=== PATIENT | male | born 1985 | race Caucasian/White ===

== ENCOUNTER 2018-06-03 20:00 | Emergency (ER) | payer SELFPAY ==
--- NOTE | 2018-06-03 21:07 | EDPHYS ---
Physician Documentation [facility] Name: Kali Lopez Age: 32 yrs Sex: Male : 1985 Arrival Date: 06/03/2018 Time: 20:03 Bed 4 Private MD: ED Physician Cecil Mendoza HPI: 06/03 20:48 This 32 yrs old Male presents to ER via Ambulatory with complaints of cp Allergic Reaction, Rash. 20:48 The patient presents with rash, of the back. Onset: The symptoms/episode began/occurred cp at an unknown time. Associated signs and symptoms: Pertinent positives: rash, Pertinent negatives: abdominal pain, Altered mental status dysphagia, fever, Light headed shortness of breath, vomiting. Possible causes: The patient has no known obvious cause for the symptoms. At home the patient or guardian has treated the symptoms with Benadryl. Severity of symptoms: in the emergency department the symptoms are unchanged despite home interventions. Historical: - Allergies: 20:08 No Known Allergies; la1 - PMHx: 20:08 None; la1 - Immunization history:: Adult Immunizations up to date. - Social history:: Smoking status: Patient/guardian denies using tobacco. - Ebola Screening: : No symptoms or risks identified at this time. ROS: 20:55 Constitutional: Negative for body aches, chills, fever, poor PO intake. cp 20:55 Eyes: Negative for injury, pain, redness, and discharge. cp 20:55 ENT: Negative for ear pain, sinus congestion, sore throat. 20:55 Cardiovascular: Negative for chest pain, edema, palpitations. 20:55 Respiratory: Negative for cough, shortness of breath, wheezing. 20:55 Abdomen/GI: Negative for abdominal pain, nausea, vomiting, and diarrhea. 20:55 Skin: Positive for rash, of the back. 20:55 Neuro: Negative for altered mental status, headache, weakness. 20:55 All other systems are negative. Exam: 21:00 Constitutional: The patient appears in no acute distress, alert, awake, cp non-diaphoretic, non-toxic, well developed, well nourished. 21:00 Head/Face: Normocephalic, atraumatic. cp 21:00 Eyes: Periorbital structures: appear normal, Conjunctiva: normal, no exudate, no injection, Sclera: no appreciated abnormality, Lids and lashes: appear normal, bilaterally. 21:00 ENT: External ear(s): are unremarkable, Ear canal(s): are normal, clear, TM's: dullness, bilaterally, Nose: is normal, Mouth: Lips: moist, Oral mucosa: pink and intact, moist, Posterior pharynx: is normal, airway is patent, no erythema, no exudate. 21:00 Neck: ROM/movement: is normal, is supple, without pain, no range of motions limitations, no meningismus, no nuchal rigidity. 21:00 Chest/axilla: Inspection: normal, Palpation: is normal, no crepitus, no tenderness. 21:00 Cardiovascular: Rate: normal, Rhythm: regular. 21:00 Respiratory: the patient does not display signs of respiratory distress, Respirations: normal, no use of accessory muscles, no retractions, no splinting, no tachypnea, labored breathing, is not present, Breath sounds: are clear throughout, no decreased breath sounds, no stridor, no wheezing. 21:00 Abdomen/GI: Inspection: abdomen appears normal, Palpation: abdomen is soft and non-tender, in all quadrants. 21:00 Skin: consistent with hives, on the back. 21:00 Neuro: Orientation: to person, place \T\ time. Mentation: is normal, Cerebellar function: is grossly normal, Motor: moves all fours, strength is normal, Sensation: is normal. Vital Signs: 20:08 BP 130 / 100; Pulse 96; Resp 18; Temp 97.1; Pulse Ox 98% on R/A; la1 20:10 Weight 90.72 kg; la1 21:07 BP 117 / 78; Pulse 68; Resp 18; Temp 97.6; Pulse Ox 98% on R/A; ak1 MDM: 20:31 Patient medically screened. cp 21:00 Differential diagnosis: anaphylaxis, angioedema, urticaria, hives. cp 21:05 Data reviewed: vital signs, nurses notes. cp 21:05 Counseling: I had a detailed discussion with the patient and/or guardian regarding: the cp historical points, exam findings, and any diagnostic results supporting the discharge/admit diagnosis, the need for outpatient follow up, a family practitioner, to return to the emergency department if symptoms worsen or persist or if there are any questions or concerns that arise at home. Response to treatment: the patient's symptoms have mildly improved after treatment, and as a result, I will discharge patient. Administered Medications: 21:05 Drug: SOLU-Medrol 80 mg Route: IM; Site: right gluteus; ak1 21:19 Follow up: Response: No adverse reaction ak1 Disposition: 06/03/18 21:06 Discharged to Home. Impression: Hives. - Condition is Stable. - Discharge Instructions: Allergies, Adult, Hives. - Prescriptions for Pepcid 20 mg Oral Tablet - take 1 tablet by ORAL route every 12 hours for 10 days; 20 tablet. Zyrtec 10 mg Oral Tablet - take 1 tablet by ORAL route once daily As needed; 20 tablet. Prednisone 20 mg Oral Tablet - take 2 tablet by ORAL route once daily for 5 days; 10 tablet. - Medication Reconciliation Form, Thank You Letter, Antibiotic Education, Prescription Opioid Use form. - Follow up: Private Physician; When: 2 - 3 days; Reason: Recheck today's complaints. - Problem is an ongoing problem. - Symptoms have improved. Addendum: 06/05/2018 02:51 Co-signature as Attending Physician, Cecil Mendoza MD. g s Signatures: Ez Finnegan RN RN la1 Aurelia Hubbard RN RN ak1 Eugene Goldstein PA PA cp Cecil Mendoza MD MD gs Corrections: (The following items were deleted from the chart) 06/03 21:07 21:06 06/03/2018 21:06 Discharged to Home. Impression: Allergic urticaria. Condition is cp Stable. Forms are Medication Reconciliation Form, Thank You Letter, Antibiotic Education, Prescription Opioid Use. Follow up: Private Physician; When: 2 - 3 days; Reason: Recheck today's complaints. Problem is an ongoing problem. Symptoms have improved. cp 21:19 21:07 06/03/2018 21:06 Discharged to Home. Impression: Hives. Condition is Stable. ak1 Discharge Instructions: Allergies, Adult, Hives. Prescriptions for Pepcid 20 mg Oral Tablet - take 1 tablet by ORAL route every 12 hours for 10 days; 20 tablet, Zyrtec 10 mg Oral Tablet - take 1 tablet by ORAL route once daily As needed; 20 tablet, Prednisone 20 mg Oral Tablet - take 2 tablet by ORAL route once daily for 5 days; 10 tablet. and Forms are Medication Reconciliation Form, Thank You Letter, Antibiotic Education, Prescription Opioid Use. Follow up: Private Physician; When: 2 - 3 days; Reason: Recheck today's complaints. Problem is an ongoing problem. Symptoms have improved. cp
--- NOTE | 2018-06-03 21:07 | ER ---
Nurse's Notes [facility] Name: Kali Lopez Age: 32 yrs Sex: Male : 1985 Arrival Date: 06/03/2018 Time: 20:03 Bed 4 Private MD: Diagnosis: Hives Presentation: 06/03 20:07 Presenting complaint: Patient states: I have an itchy rash on my back for the last la1 month. Transition of care: patient was not received from another setting of care. Onset: The symptoms/episode began/occurred last month. Anaphylaxis evaluation, no signs or symptoms of anaphylaxis were noted. Onset of symptoms was June 03, 2018. Risk Assessment: Do you want to hurt yourself or someone else? Patient reports no desire to harm self or others. Initial Sepsis Screen: Does the patient meet any 2 criteria? No. Patient's initial sepsis screen is negative. Does the patient have a suspected source of infection? No. Patient's initial sepsis screen is negative. Care prior to arrival: None. 20:07 Method Of Arrival: Ambulatory la1 20:07 Acuity: SALO 5 la1 Triage Assessment: 20:36 General: Appears in no apparent distress. Behavior is cooperative. ak1 Historical: - Allergies: 20:08 No Known Allergies; la1 - PMHx: 20:08 None; la1 - Immunization history:: Adult Immunizations up to date. - Social history:: Smoking status: Patient/guardian denies using tobacco. - Ebola Screening: : No symptoms or risks identified at this time. Screenin:36 Abuse screen: Denies threats or abuse. Denies injuries from another. Nutritional ak1 screening: No deficits noted. Tuberculosis screening: No symptoms or risk factors identified. Fall Risk None identified. Assessment: 20:36 Respiratory: Airway is patent Respiratory effort is even, unlabored, Breath sounds are ak1 clear. 20:39 General: Appears in no apparent distress. Pain: Denies pain. Neuro: No deficits noted. ak1 Cardiovascular: No deficits noted. GI: No signs and/or symptoms were reported involving the gastrointestinal system. : No signs and/or symptoms were reported regarding the genitourinary system. EENT: No signs and/or symptoms were reported regarding the EENT system. Derm: Rash noted that is redness and itching noted to left shoulder blade, right upper arm, and lower back. pt stated he "gets a rash once a year, comes in to the ER gets a steroid shot and the rash goes away for the year.". Musculoskeletal: No signs and/or symptoms reported regarding the musculoskeletal system. Vital Signs: 20:08 BP 130 / 100; Pulse 96; Resp 18; Temp 97.1; Pulse Ox 98% on R/A; la1 20:10 Weight 90.72 kg; la1 21:07 BP 117 / 78; Pulse 68; Resp 18; Temp 97.6; Pulse Ox 98% on R/A; ak1 ED Course: 20:03 Patient arrived in ED. am2 20:08 Triage completed. la1 20:09 Arm band placed on left wrist. la1 20:31 Eugene Goldstein PA is PHCP. cp 20:31 Cecil Mendoza MD is Attending Physician. cp 20:36 Aurelia Hubbard, RN is Primary Nurse. ak1 20:37 Patient has correct armband on for positive identification. Bed in low position. Call ak1 light in reach. Side rails up X 1. Pulse ox on. NIBP on. 21:08 No provider procedures requiring assistance completed. Patient did not have IV access ak1 during this emergency room visit. Administered Medications: 21:05 Drug: SOLU-Medrol 80 mg Route: IM; Site: right gluteus; ak1 21:19 Follow up: Response: No adverse reaction ak1 Outcome: 21:06 Discharge ordered by . cp 21:08 Condition: good ak1 21:19 Discharged to home ambulatory. ak1 21:19 Discharge instructions given to patient, Instructed on discharge instructions, follow up and referral plans. medication usage, Demonstrated understanding of instructions, follow-up care, medications, Prescriptions given X 3. 21:19 Patient left the ED. ak1 Signatures: Ez Finnegan RN RN la1 Aurelia Hubbard, RN RN ak1 Eugene Goldstein PA PA cp Moreno, Amanda am
[2018-06-03] MEDS ORDERED: METHYLPREDNISOLONE 40 MG INJ ONE (21:11)
== END 2018-06-03 21:19 | disposition home or self-care (01) ==
LOC: ER 20:00
DX: L50.9 Urticaria, unspecified (principal)
CPT/HCPCS: 96372; 99283; J2920

== ENCOUNTER 2018-12-14 18:00 | Emergency (ER) | payer SELFPAY ==
--- NOTE | 2018-12-14 19:15 | ER ---
Nurse's Notes [facility] Name: Kali Lopez Age: 32 yrs Sex: Male : 1985 Arrival Date: 12/14/2018 Time: 18:01 Bed Waiting Private MD: Diagnosis: Presentation: 12/14 18:16 Presenting complaint: Patient states: I have been waking up with a headache for the la1 past week, but for the last 2 days it has not gone away. Transition of care: patient was not received from another setting of care. Onset of symptoms was December 14, 2018. Risk Assessment: Do you want to hurt yourself or someone else? Patient reports no desire to harm self or others. Initial Sepsis Screen: Does the patient meet any 2 criteria? No. Patient's initial sepsis screen is negative. Does the patient have a suspected source of infection? No. Patient's initial sepsis screen is negative. Care prior to arrival: None. 18:16 Method Of Arrival: Ambulatory la1 18:16 Acuity: SALO 3 la1 Historical: - Allergies: 18:17 No Known Allergies; la1 - Home Meds: 18:17 lisinopril 10 mg Oral tab 1 tab once daily [Active]; la1 - PMHx: 18:17 Hypertension; la1 - Immunization history:: Adult Immunizations up to date. - Social history:: Smoking status: Patient/guardian denies using tobacco. - Ebola Screening: : No symptoms or risks identified at this time. Vital Signs: 18:17 BP 119 / 83; Pulse 79; Resp 16; Temp 97.8; Pulse Ox 98% on R/A; Weight 86.18 kg; Height la1 5 ft. 7 in. (170.18 cm); 18:17 Body Mass Index 29.76 (86.18 kg, 170.18 cm) la1 ED Course: 18:01 Patient arrived in ED. as 18:16 Triage completed. la1 18:17 Arm band placed on left wrist. la1 18:55 Patient's name was called from ER lobby. No response. Unable to locate patient. Will la1 disposition as left without being seen by a provider. 19:05 Patient's name was called from ER lobby. No response. Unable to locate patient. Will la1 disposition as left without being seen by a provider. 19:11 Patient's name was called from ER lobby. No response. Unable to locate patient. Will la1 disposition as left without being seen by a provider. Administered Medications: No medications were administered Outcome: 19:14 Patient left the ED. la1 Signatures: Romelia Tang Lee, RN RN la1
== END 2018-12-14 19:14 | disposition left against medical advice (07) ==
LOC: ER 18:00
DX: Z53.21 Procedure and treatment not carried out due to patient leaving prior to being seen by health care provider (principal)
CPT/HCPCS: 99281

== ENCOUNTER 2019-07-22 21:17 | Emergency (ER) | payer SELFPAY ==
--- NOTE | 2019-07-22 21:54 | EDPHYS ---
Physician Documentation [facility] Name: Kali oLpez Age: 33 yrs Sex: Male : 1985 Arrival Date: 07/22/2019 Time: 21:20 Bed 16 Private MD: ED Physician Tim Mcgill HPI: 07/21 21:36 This 33 yrs old Male presents to ER via Ambulatory with complaints of lip pm1 swelling. 21:36 The patient's rash thought to be caused by an unknown cause. The rash is located on the pm1 lower lip. Onset: The symptoms/episode began/occurred today. Associated signs and symptoms: Pertinent negatives: burning sensation, difficulty breathing, fever, swelling of throat, swelling of tongue, vomiting, wheezing, SOB. Treatment given at home: None. Patient reports swelling to his lips once per year. Started as a child and usually requires getting a steroid shot to bring it down. Historical: - Allergies: 21:29 No Known Allergies; ca1 - Home Meds: 21:29 lisinopril 10 mg Oral tab 1 tab once daily [Active]; ca1 - PMHx: 21:29 Hypertension; ca1 - PSHx: 21:29 None; ca1 - Immunization history:: Adult Immunizations up to date, Flu vaccine is up to date. - Social history:: Smoking status: Patient reports the use of cigarette tobacco products, smokes one pack cigarettes per day. ROS: 21:36 Constitutional: Negative for fever, chills, and weight loss, Eyes: Negative for injury, pm1 pain, redness, and discharge. 21:36 Cardiovascular: Negative for chest pain, palpitations, and edema, Respiratory: Negative for shortness of breath, cough, wheezing, and pleuritic chest pain, Abdomen/GI: Negative for abdominal pain, nausea, vomiting, diarrhea, and constipation, Back: Negative for injury and pain, MS/Extremity: Negative for injury and deformity, Skin: Negative for injury, rash, and discoloration. 21:36 Neuro: Negative for headache, weakness, numbness, tingling, and seizure. 21:36 ENT: Positive for Lip swelling, Negative for ear pain, difficulty swallowing, difficulty handling secretions, hoarseness. Exam: 21:36 Constitutional: This is a well developed, well nourished patient who is awake, alert, pm1 and in no acute distress. Head/Face: Normocephalic, atraumatic. 21:36 Neck: Trachea midline, no thyromegaly or masses palpated, and no cervical lymphadenopathy. Supple, full range of motion without nuchal rigidity, or vertebral point tenderness. No Meningismus. Chest/axilla: Normal chest wall appearance and motion. Nontender with no deformity. No lesions are appreciated. Cardiovascular: Regular rate and rhythm with a normal S1 and S2. No gallops, murmurs, or rubs. No pulse deficits. Respiratory: Lungs have equal breath sounds bilaterally, clear to auscultation and percussion. No rales, rhonchi or wheezes noted. No increased work of breathing, no retractions or nasal flaring. Abdomen/GI: Soft, non-tender, with normal bowel sounds. No distension or tympany. No guarding or rebound. No evidence of tenderness throughout. Back: No spinal tenderness. No costovertebral tenderness. Full range of motion. Skin: Warm, dry with normal turgor. Normal color with no rashes, no lesions, and no evidence of cellulitis. MS/ Extremity: Pulses equal, no cyanosis. Neurovascular intact. Full, normal range of motion. 21:36 ENT: External ear(s): are unremarkable, Ear canal(s): are normal, TM's: are normal, Nose: is normal, Mouth: Lips: mild swelling to left lower lip, Posterior pharynx: is normal, airway is patent. 21:36 Neuro: Orientation: is normal, Motor: is normal, moves all fours, Sensation: is normal, no obvious gross deficits. Vital Signs: 21:26 BP 122 / 38; Pulse 70; Resp 16 S; Temp 97.5(TE); Pulse Ox 98% on R/A; Weight 87.54 kg ca1 (R); Height 5 ft. 7 in. (170.18 cm) (R); 21:31 BP 122 / 38; Pulse 70; Resp 18; Temp 98.8; Pulse Ox 98% ; Pain 0/10; jv1 22:00 BP 125 / 60; Pulse 71; Resp 18; Temp 98.2; Pulse Ox 98% ; Pain 0/10; jv1 21:26 Body Mass Index 30.23 (87.54 kg, 170.18 cm) ca1 MDM: 21:21 Patient medically screened. pm1 21:42 Data reviewed: vital signs. Data interpreted: Pulse oximetry: on room air is 98 %. pm1 Interpretation: normal. 21:50 Counseling: I had a detailed discussion with the patient and/or guardian regarding: the pm1 historical points, exam findings, and any diagnostic results supporting the discharge/admit diagnosis, the need for outpatient follow up, for definitive care, an allergy/video specialist, to return to the emergency department if symptoms worsen or persist or if there are any questions or concerns that arise at home. 21:53 ED course: Patient does not want to wait for effect of medications prior to discharge. pm1 He wants to go to home because he has work at 3. Administered Medications: 21:48 Drug: Pepcid 20 mg Route: PO; jv1 21:59 Follow up: Response: No adverse reaction jv1 21:48 Drug: Decadron 10 mg Route: IM; Site: left gluteus; jv1 21:59 Follow up: Response: No adverse reaction jv1 21:50 CANCELLED (Physician Discretion): Benadryl 25 mg PO once pm1 Disposition: 22:58 Co-signature as Attending Physician, Tim Mcgill MD. sita Disposition: 07/22/19 21:52 Discharged to Home. Impression: Localized swelling, mass and lump, head - lower lip. - Condition is Stable. - Discharge Instructions: Angioedema. - Prescriptions for Prednisone 20 mg Oral Tablet - take 3 tablet by ORAL route once daily for 5 days; 15 tablet. - Medication Reconciliation Form, Thank You Letter, Antibiotic Education, Prescription Opioid Use form. - Follow up: Emergency Department; When: As needed; Reason: Worsening of condition. Follow up: Private Physician; When: 2 - 3 days; Reason: Recheck today's complaints, Continuance of care, Re-evaluation by your physician. - Problem is new. - Symptoms have improved. Signatures: Tim Mcgill MD MD pkl Per Sharpe NP CITY DETECTIVE pm1 Lupe Caraballo RN RN jLeial Cerrato RN RN ca1 Corrections: (The following items were deleted from the chart) 21:50 21:28 Benadryl 25 mg PO once ordered. pm1 pm1 21:53 21:52 07/22/2019 21:52 Discharged to Home. Impression: Localized swelling, mass and pm1 lump, head - lower lip. Condition is Stable. Forms are Medication Reconciliation Form, Thank You Letter, Antibiotic Education, Prescription Opioid Use. pm1 22:01 21:53 07/22/2019 21:52 Discharged to Home. Impression: Localized swelling, mass and jv1 lump, head - lower lip. Condition is Stable. Forms are Medication Reconciliation Form, Thank You Letter, Antibiotic Education, Prescription Opioid Use. Follow up: Emergency Department; When: As needed; Reason: Worsening of condition. Follow up: Private Physician; When: 2 - 3 days; Reason: Recheck today's complaints, Continuance of care, Re-evaluation by your physician. Problem is new. Symptoms have improved. pm1
--- NOTE | 2019-07-22 21:54 | ER ---
Nurse's Notes [facility] Name: Kali Lopez Age: 33 yrs Sex: Male : 1985 Arrival Date: 07/22/2019 Time: 21:20 Bed 16 Private MD: Diagnosis: Localized swelling, mass and lump, head-lower lip Presentation: 07/21 21:26 Chief complaint: Patient states: Swelling on L lower lip. 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 Pt ca1 states, "I breakout in hives for no reason since I was a kid. I carry around Benadryl with me all the time. If doesn't work, I come to the ER to get a shot of steroids". Coronavirus screen: Patient denies fever greater than 100.4F, cough, shortness of breath, or difficulty breathing. Proceed with normal triage process. Ebola Screen: Patient negative for fever greater than or equal to 101.5 degrees Fahrenheit, and additional compatible Ebola Virus Disease symptoms Patient denies exposure to infectious person. Patient denies travel to an Ebola-affected area in the 21 days before illness onset. No symptoms or risks identified at this time. Initial Sepsis Screen: Does the patient meet any 2 criteria? No. Patient's initial sepsis screen is negative. Does the patient have a suspected source of infection? No. Patient's initial sepsis screen is negative. Risk Assessment: Do you want to hurt yourself or someone else? Patient reports no desire to harm self or others. Onset of symptoms was July 22, 2019. 21:26 Method Of Arrival: Ambulatory ca1 21:26 Acuity: SALO 4 ca1 Historical: - Allergies: 21:29 No Known Allergies; ca1 - Home Meds: 21:29 lisinopril 10 mg Oral tab 1 tab once daily [Active]; ca1 - PMHx: 21:29 Hypertension; ca1 - PSHx: 21:29 None; ca1 - Immunization history:: Adult Immunizations up to date, Flu vaccine is up to date. - Social history:: Smoking status: Patient reports the use of cigarette tobacco products, smokes one pack cigarettes per day. Screenin:34 Abuse screen: Denies threats or abuse. Nutritional screening: No deficits noted. jv1 Tuberculosis screening: No symptoms or risk factors identified. Fall Risk None identified. Assessment: 21:32 General: Appears in no apparent distress. well groomed, Behavior is calm, cooperative. jv1 Pain: Denies pain. Neuro: Level of Consciousness is awake, alert, obeys commands, Oriented to person, place, time, situation. Cardiovascular: Denies chest pain. Respiratory: Airway is patent Respiratory effort is even, unlabored, Respiratory pattern is regular, symmetrical, Breath sounds are clear bilaterally. GI: Abdomen is round non-distended, Bowel sounds present X 4 quads. : No signs and/or symptoms were reported regarding the genitourinary system. EENT: swelling in left lower lip, pt stated it is itchy. Derm: Skin is intact, is healthy with good turgor, Skin is pink, warm \\T\\ dry. swelling left lower lip. Musculoskeletal: No signs and/or symptoms reported regarding the musculoskeletal system. Vital Signs: 21:26 BP 122 / 38; Pulse 70; Resp 16 S; Temp 97.5(TE); Pulse Ox 98% on R/A; Weight 87.54 kg ca1 (R); Height 5 ft. 7 in. (170.18 cm) (R); 21:31 BP 122 / 38; Pulse 70; Resp 18; Temp 98.8; Pulse Ox 98% ; Pain 0/10; jv1 22:00 BP 125 / 60; Pulse 71; Resp 18; Temp 98.2; Pulse Ox 98% ; Pain 0/10; jv1 21:26 Body Mass Index 30.23 (87.54 kg, 170.18 cm) ca1 ED Course: 21:20 Patient arrived in ED. mr 21:21 Per Sharpe NP is PHCP. pm1 21:21 Tim Mcgill MD is Attending Physician. pm1 21:29 Triage completed. ca1 21:29 Arm band placed on right wrist. ca1 21:34 Patient has correct armband on for positive identification. Bed in low position. Call jv1 light in reach. Side rails up X 1. 21:58 No provider procedures requiring assistance completed. Patient did not have IV access jv1 during this emergency room visit. Administered Medications: 21:48 Drug: Pepcid 20 mg Route: PO; jv1 21:59 Follow up: Response: No adverse reaction jv1 21:48 Drug: Decadron 10 mg Route: IM; Site: left gluteus; jv1 21:59 Follow up: Response: No adverse reaction jv1 21:50 CANCELLED (Physician Discretion): Benadryl 25 mg PO once pm1 Outcome: 21:52 Discharge ordered by . pm1 21:58 Discharged to home ambulatory. jv1 21:58 Condition: good 21:58 Discharge instructions given to patient, Instructed on discharge instructions, follow up and referral plans. medication usage, Demonstrated understanding of instructions, follow-up care, medications, Prescriptions given X 1. 22:01 Patient left the ED. jv1 Signatures: Rupa Amaya Patrick, DOCKMASTER DOCKMASTER pm1 Lupe Caraballo, RN RN jv1 Leila Higgins RN RN ca1
[2019-07-22 22:08] VITALS: O2SAT 98
[2019-07-22 22:12] VITALS: BP 125/60; TEMP 98.2
== END 2019-07-22 22:01 | disposition home or self-care (01) ==
LOC: ER 21:17
DX: R22.0 Localized swelling, mass and lump, head (principal); I10 Essential (primary) hypertension; F17.210 Nicotine dependence, cigarettes, uncomplicated
CPT/HCPCS: 96372; 99283; J1100

== ENCOUNTER 2019-11-16 08:33 | Emergency (ER) | payer SELFPAY ==
--- NOTE | 2019-11-16 08:56 | EDPHYS ---
Physician Documentation [facility] Name: Kali Lopez Age: 33 yrs Sex: Male : 1985 Arrival Date: 11/16/2019 Time: 08:37 Bed 8 Private MD: None, None ED Physician Ace Rivera HPI: 11/15 09:01 This 33 yrs old Male presents to ER via Ambulatory with complaints of kdr Sneezing, Cough, Been around covid positive. 09:01 The patient or guardian reports airway noise, cough, that is intermittent, described as kdr mild, with productive sputum, Clear. Modifying factors: The symptoms are alleviated by nothing. the symptoms are aggravated by nothing. Onset: The symptoms/episode began/occurred gradually, Since Tuesday. Severity of symptoms: At their worst the symptoms were mild, in the emergency department the symptoms are unchanged. Associated signs and symptoms: The patient has no apparent associated signs or symptoms. Associated signs and symptoms: Pertinent negatives: diarrhea, fever, nausea, vomiting. Modifying factors: The symptoms are alleviated by nothing, the symptoms are aggravated by nothing. Severity of symptoms: At their worst the symptoms were very mild in the emergency department the symptoms are unchanged. Historical: - Allergies: 08:59 No Known Allergies; sv - PMHx: 08:59 Hypertension; High Cholesterol; sv - PSHx: 08:59 None; sv - Immunization history:: Adult Immunizations up to date. - Social history:: Smoking status: Patient denies any tobacco usage or history of. ROS: 09:06 Constitutional: Negative for fever, chills, and weight loss, Eyes: Negative for injury, kdr pain, redness, and discharge, ENT: Negative for injury, pain, and discharge, Neck: Negative for injury, pain, and swelling, Cardiovascular: Negative for chest pain, palpitations, and edema, Abdomen/GI: Negative for abdominal pain, nausea, vomiting, diarrhea, and constipation, Back: Negative for injury and pain, : Negative for injury, bleeding, discharge, and swelling, MS/Extremity: Negative for injury and deformity, Skin: Negative for injury, rash, and discoloration, Neuro: Negative for headache, weakness, numbness, tingling, and seizure activity. Psych: Negative for depression, anxiety, suicide ideation, homicidal ideation, and hallucinations, Allergy/Immunology: Negative for hives, rash, and allergies, Endocrine: Negative for neck swelling, polydipsia, polyuria, polyphagia, and marked weight changes, Hematologic/Lymphatic: Negative for swollen nodes, abnormal bleeding, and unusual bruising. 09:06 Respiratory: Positive for cough, with clear sputum, Negative for dyspnea on exertion, hemoptysis, orthopnea, pleurisy, shortness of breath, sputum production, wheezing. Exam: 09:06 Constitutional: This is a well developed, well nourished patient who is awake, alert, kdr and in no acute distress. Head/Face: Normocephalic, atraumatic. Eyes: Pupils equal round and reactive to light, extra-ocular motions intact. Lids and lashes normal. Conjunctiva and sclera are non-icteric and not injected. Cornea within normal limits. Periorbital areas with no swelling, redness, or edema. Neck: Trachea midline, no thyromegaly or masses palpated, and no cervical lymphadenopathy. Supple, full range of motion without nuchal rigidity, or vertebral point tenderness. No Meningismus. Chest/axilla: Normal chest wall appearance and motion. Nontender with no deformity. No lesions are appreciated. Cardiovascular: Regular rate and rhythm with a normal S1 and S2. No gallops, murmurs, or rubs. Normal PMI, no JVD. No pulse deficits. Respiratory: Lungs have equal breath sounds bilaterally, clear to auscultation and percussion. No rales, rhonchi or wheezes noted. No increased work of breathing, no retractions or nasal flaring. Abdomen/GI: Soft, non-tender, with normal bowel sounds. No distension or tympany. No guarding or rebound. No evidence of tenderness throughout. Back: No spinal tenderness. No costovertebral tenderness. Full range of motion. Skin: Warm, dry with normal turgor. Normal color with no rashes, no lesions, and no evidence of cellulitis. MS/ Extremity: Pulses equal, no cyanosis. Neurovascular intact. Full, normal range of motion. Neuro: Awake and alert, GCS 15, oriented to person, place, time, and situation. Cranial nerves II-XII grossly intact. Motor strength 5/5 in all extremities. Sensory grossly intact. Cerebellar exam normal. Normal gait. Psych: Awake, alert, with orientation to person, place and time. Behavior, mood, and affect are within normal limits. Vital Signs: 08:59 BP 111 / 76; Pulse 63; Resp 16; Pulse Ox 99% ; Weight 86.18 kg; Height 5 ft. 7 in. sv (170.18 cm); 08:59 Body Mass Index 29.76 (86.18 kg, 170.18 cm) sv MDM: 08:55 Patient medically screened. kdr 09:06 Data reviewed: vital signs, nurses notes. Counseling: I had a detailed discussion with kdr the patient and/or guardian regarding: the historical points, exam findings, and any diagnostic results supporting the discharge/admit diagnosis, the need for outpatient follow up. 11/15 08:55 Order name: COVID-19 kdr Administered Medications: No medications were administered Disposition: 11/16/19 08:55 Discharged to Home. Impression: Acute upper respiratory infection, unspecified. - Condition is Stable. - Discharge Instructions: Upper Respiratory Infection, Adult, Viral Respiratory Infection, [id number], COVID-19. - Medication Reconciliation Form, Thank You Letter form. - Follow up: Private Physician; When: 2 - 3 days; Reason: If symptoms return, Further diagnostic work-up, Recheck today's complaints, Continuance of care, Re-evaluation by your physician. - Problem is new. - Symptoms are unchanged. Signatures: Dispatcher [employer] Connie Remy RN RN Ace Rivera MD MD [facility] Corrections: (The following items were deleted from the chart) 09:12 08:55 11/16/2019 08:55 Discharged to Home. Impression: Acute upper respiratory sv infection, unspecified. Condition is Stable. Forms are Medication Reconciliation Form, Thank You Letter, Antibiotic Education, Prescription Opioid Use. Follow up: Private Physician; When: 2 - 3 days; Reason: If symptoms return, Further diagnostic work-up, Recheck today's complaints, Continuance of care, Re-evaluation by your physician. Problem is new. Symptoms are unchanged. kdr
--- NOTE | 2019-11-16 09:13 | ER ---
Nurse's Notes [facility] Name: Kali Lopez Age: 33 yrs Sex: Male : 1985 Arrival Date: 11/16/2019 Time: 08:37 Bed 8 Private MD: None, None Diagnosis: Acute upper respiratory infection, unspecified Presentation: 11/15 08:57 Chief complaint: Patient states: runny nose, dry cough, +exposure from immediate sv family. "I came to get tested.". Coronavirus screen: Patient reports a cough. Patient denies shortness of breath or difficulty breathing. Patient denies measured and/or subjective temperature greater than 100.4F prior to today's visit. Patient denies travel on a cruise ship or to a country the [facility] currently lists as an affected area. Patient reports contact with known and/or suspected case of COVID-19. Patient instructed to continue to wear a mask when interacting with others. Patient moved to private room, placed in contact and droplet isolation with eye protection until further assessment. Ebola Screen: No symptoms or risks identified at this time. Anaphylaxis evaluation, no signs or symptoms of anaphylaxis were noted. Risk Assessment: Do you want to hurt yourself or someone else? Patient reports no desire to harm self or others. 08:57 Method Of Arrival: Ambulatory 08:57 Acuity: SALO 4 sv 08:59 Initial Sepsis Screen: Does the patient meet any 2 criteria? No. Patient's initial sv sepsis screen is negative. Does the patient have a suspected source of infection? No. Patient's initial sepsis screen is negative. Onset of symptoms was November 16, 2019. Triage Assessment: 08:57 General: Appears in no apparent distress. comfortable, well developed, Behavior is sv calm, cooperative, appropriate for age. Pain: Denies pain. Neuro: Level of Consciousness is awake, alert, obeys commands, Oriented to person, place, time, situation, Moves all extremities. Full function Gait is steady, Speech is normal. Respiratory: Reports cough that is non-productive, dry, Airway is patent Respiratory effort is even, unlabored, Respiratory pattern is regular, symmetrical. Derm: Skin is pink, warm \\T\\ dry. Historical: - Allergies: 08:59 No Known Allergies; sv - PMHx: 08:59 Hypertension; High Cholesterol; sv - PSHx: 08:59 None; sv - Immunization history:: Adult Immunizations up to date. - Social history:: Smoking status: Patient denies any tobacco usage or history of. Screenin:59 Abuse screen: Denies threats or abuse. Denies injuries from another. Nutritional sv screening: No deficits noted. Tuberculosis screening: No symptoms or risk factors identified. Fall Risk None identified. Assessment: 09:12 Reassessment: COVID-19 swab sent to lab. sv 09:12 Reassessment: Patient appears in no apparent distress at this time. No changes from sv previously documented assessment. Patient and/or family updated on plan of care and expected duration. Pain level reassessed. Patient is alert, oriented x 3, equal unlabored respirations, skin warm/dry/pink. See triage assessment. Vital Signs: 08:59 BP 111 / 76; Pulse 63; Resp 16; Pulse Ox 99% ; Weight 86.18 kg; Height 5 ft. 7 in. sv (170.18 cm); 08:59 Body Mass Index 29.76 (86.18 kg, 170.18 cm) sv ED Course: 08:37 Patient arrived in ED. dp 08:37 Ace Rivera MD is Attending Physician. kdr 08:38 None, None is Private Physician. dp 08:54 Connie Wells RN is Primary Nurse. sv 08:58 Triage completed. sv 08:59 Awaiting ED provider evaluation. sv 08:59 Arm band placed on. sv 08:59 Patient has correct armband on for positive identification. Bed in low position. Call sv light in reach. Door closed. Head of bed elevated. 09:12 No provider procedures requiring assistance completed. Patient did not have IV access sv during this emergency room visit. 15:38 Health Dept notified/ PUI # [id number]/ Laurence in lab notified. eb Administered Medications: No medications were administered Outcome: 08:55 Discharge ordered by . kdr 09:12 Discharged to home ambulatory. sv 09:12 Condition: stable 09:12 Discharge instructions given to patient, Instructed on discharge instructions, follow up and referral plans. Demonstrated understanding of instructions, follow-up care. 09:12 Patient left the ED. sv Addendum: 11/19/2019 13:03 Addendum: COVID-19 Result: Negative result given to RN to notify pt. Contacted by: abril Baldwin RN. Notified pt of negative COVID 19 swab results. Pt advised that even with a negative test result they should remain in isolation until symptom free for 3 days without medication. Pt also advised to return to the ED for worsening symptoms. Signatures: Karla Lewis, ELLEN RN dm5 Connie Wells RN RN sv Ace Rivera MD MD kdr Botello, Elizabeth eb Pena, Darian dp Corrections: (The following items were deleted from the chart) 11/15 09:11 08:59 86.18 kg; Height 5 ft. 7 in.; BMI: 29.7; sv sv
[2019-11-16 10:03] VITALS: BP 111/76; O2SAT 99
== END 2019-11-16 09:12 | disposition home or self-care (01) ==
LOC: ER 08:33
DX: J06.9 Acute upper respiratory infection, unspecified (principal); Z20.828 Contact with and (suspected) exposure to other viral communicable diseases; I10 Essential (primary) hypertension
CPT/HCPCS: 99281; U0001

== ENCOUNTER 2020-09-22 19:31 | Emergency (ER) | payer SELFPAY ==
--- NOTE | 2020-09-22 20:21 | EDPHYS ---
Physician Documentation [facility] Name: Kali Lopez Age: 34 yrs Sex: Male : 1985 Arrival Date: 09/22/2020 Time: 19:33 Bed 5 Private MD: ED Physician Patrick Collado HPI: 09/22 20:20 This 34 yrs old Male presents to ER via Ambulatory with complaints of Knee cp Pain. 20:20 The patient presents with pain. cp 20:20 The complaints affect the medial aspect of right knee and right knee. Context: resulted cp from an unknown cause, the patient can fully bear weight, the patient is able to ambulate, with mild difficulty. Onset: The symptoms/episode began/occurred 3 week(s) ago. Associated signs and symptoms: Pertinent negatives calf tenderness, numbness, warmth. Historical: - Allergies: 19:45 No Known Allergies; ca1 - Home Meds: 19:45 None [Active]; ca1 - PMHx: 19:45 High Cholesterol; Hypertension; ca1 - PSHx: 19:45 None; ca1 - Immunization history:: Client reports receiving the 1st dose of the Covid vaccine, Flu vaccine is not up to date. - Social history:: Smoking status: Patient reports the use of cigarette tobacco products, smokes one-half pack cigarettes per day. ROS: 20:20 MS/extremity: Positive for pain, tenderness, of the right knee, Negative for injury or cp acute deformity, decreased range of motion, paresthesias. 20:20 Constitutional: Negative for body aches, chills, fever, poor PO intake. cp 20:20 Cardiovascular: Negative for chest pain. 20:20 Respiratory: Negative for cough, shortness of breath, wheezing. 20:20 Abdomen/GI: Negative for abdominal pain. 20:20 Skin: Negative for cellulitis, rash. 20:20 All other systems are negative. Exam: 20:20 Constitutional: The patient appears in no acute distress, alert, awake, non-toxic, well cp developed, well nourished. 20:20 Musculoskeletal/extremity: Extremities: grossly normal except: noted in the right knee: pain, tenderness, There is no evidence of decreased ROM, deformity, erythema, swelling, ROM: limited active range of motion due to pain, in the right knee, Pulses: noted to be 2+ in the right dorsalis pedis artery, Sensation intact. Vital Signs: 19:43 BP 129 / 90; Pulse 73; Resp 16 S; Temp 97.9(TE); Pulse Ox 99% on R/A; Weight 86.18 kg ca1 (R); Height 5 ft. 7 in. (170.18 cm) (R); Pain 7/10; 19:43 Body Mass Index 29.76 (86.18 kg, 170.18 cm) ca1 MDM: 20:19 Patient medically screened. cp 20:20 Data reviewed: vital signs, nurses notes. cp Administered Medications: No medications were administered Disposition: 20:30 Chart complete. cp 09/23 05:06 Co-signature as Attending Physician, Patrick Collado MD I agree with the assessment and [facility] plan of care. Disposition: 09/22/20 20:20 Discharged to Home as Medical Screen. Impression: Pain in right knee. - Condition is Stable. - Discharge Instructions: Elastic Bandage and RICE, How to Use a Knee Brace, Knee Pain. - Medication Reconciliation Form, Thank You Letter, Antibiotic Education, Prescription Opioid Use form. - Follow up: Laith Richter MD; When: 2 - 3 days; Reason: Recheck today's complaints. - Problem is new. - Symptoms are unchanged. Signatures: Eugene Goldstein PA PA cp Antunez, Elena, RN RN ea Wadley, Terrence, MD MD 4 Leila Higgins RN RN ca1 Corrections: (The following items were deleted from the chart) 09/22 20:25 20:20 09/22/2020 20:20 Discharged to Home as Medical Screen. Impression: Pain in right ea knee. Condition is Stable. Forms are Medication Reconciliation Form, Thank You Letter, Antibiotic Education, Prescription Opioid Use. Follow up: Dr. Laith Richter; When: 2 - 3 days; Reason: Recheck today's complaints. Problem is new. Symptoms are unchanged. cp
--- NOTE | 2020-09-22 20:21 | ER ---
Nurse's Notes [facility] Name: Kali Lopez Age: 34 yrs Sex: Male : 1985 Arrival Date: 09/22/2020 Time: 19:33 Bed 5 Private MD: Diagnosis: Pain in right knee Presentation: 09/22 19:43 Chief complaint: Patient states: R knee pain, especially with pressure and ca1 repositioning, sharp pain on the side of the R knee x 3 weeks. Denies recent injury. Coronavirus screen: Client denies travel out of the [place] in the last 14 days. At this time, the client does not indicate any symptoms associated with coronavirus-19. Ebola Screen: Patient negative for fever greater than or equal to 101.5 degrees Fahrenheit, and additional compatible Ebola Virus Disease symptoms Patient denies exposure to infectious person. Patient denies travel to an Ebola-affected area in the 21 days before illness onset. No symptoms or risks identified at this time. Initial Sepsis Screen: Does the patient meet any 2 criteria? No. Patient's initial sepsis screen is negative. Does the patient have a suspected source of infection? No. Patient's initial sepsis screen is negative. Risk Assessment: Do you want to hurt yourself or someone else? Patient reports no desire to harm self or others. Onset of symptoms was September 22, 2020. 19:43 Method Of Arrival: Ambulatory ca1 19:43 Acuity: SALO 4 ca1 Historical: - Allergies: 19:45 No Known Allergies; ca1 - Home Meds: 19:45 None [Active]; ca1 - PMHx: 19:45 High Cholesterol; Hypertension; ca1 - PSHx: 19:45 None; ca1 - Immunization history:: Client reports receiving the 1st dose of the Covid vaccine, Flu vaccine is not up to date. - Social history:: Smoking status: Patient reports the use of cigarette tobacco products, smokes one-half pack cigarettes per day. Screenin:11 Abuse screen: Denies threats or abuse. Nutritional screening: No deficits noted. ea Tuberculosis screening: No symptoms or risk factors identified. Fall Risk None identified. Assessment: 20:15 General: Appears in no apparent distress. Behavior is calm, cooperative, appropriate ea for age. Pain: Complains of pain in right knee. Neuro: Level of Consciousness is awake, alert, obeys commands, Oriented to person, place, time. Derm: Skin is pink, warm \T\ dry. 20:23 Reassessment: Patient and/or family updated on plan of care and expected duration. Pain ea level reassessed. Patient is alert, oriented x 3, equal unlabored respirations, skin warm/dry/pink. Discharge instruction given to patient verbalized the understanding of instruction. Vital Signs: 19:43 BP 129 / 90; Pulse 73; Resp 16 S; Temp 97.9(TE); Pulse Ox 99% on R/A; Weight 86.18 kg ca1 (R); Height 5 ft. 7 in. (170.18 cm) (R); Pain 7/10; 19:43 Body Mass Index 29.76 (86.18 kg, 170.18 cm) ca1 ED Course: 19:33 Patient arrived in ED. ag3 19:44 Triage completed. ca1 19:45 Arm band placed on right wrist. ca1 20:11 Penelope Trujillo, RN is Primary Nurse. ea 20:11 Eugene Godlstein PA is PHCP. cp 20:11 Patrick Collado MD is Attending Physician. cp 20:11 Patient has correct armband on for positive identification. Bed in low position. Call ea light in reach. Side rails up X 1. 20:19 Laith Richter MD is Referral Physician. cp 20:24 No provider procedures requiring assistance completed. Patient did not have IV access ea during this emergency room visit. Administered Medications: No medications were administered Outcome: 20:20 Discharge ordered by MD. cp 20:24 Discharged to home ambulatory. ea 20:24 Condition: stable 20:24 Discharge instructions given to patient, Instructed on discharge instructions, follow up and referral plans. Demonstrated understanding of instructions, follow-up care. 20:25 Patient left the ED. ea Signatures: Eugene Goldstein PA PA cp Antunez, Elena, Linsey Braga RN, ea ag3 Leila Higgins RN RN ca1
[2020-09-22 20:53] VITALS: BP 129/90; TEMP 97.9; O2SAT 99
== END 2020-09-22 20:25 | disposition home or self-care (01) ==
LOC: ER 19:31
DX: M25.561 Pain in right knee (principal); I10 Essential (primary) hypertension; F17.210 Nicotine dependence, cigarettes, uncomplicated
CPT/HCPCS: 99281

== ENCOUNTER 2022-01-10 23:07 | Emergency (ER) | payer SELFPAY ==
--- OUTSIDE RECORDS SUMMARY | 2022-01-10 23:11 | XMS REPORT | Continuity of Care Document ---
:1985 Author Organization [facility] t Address [address] [place] [address] Care Team Providers Name Role Phone Pcp, Patient Does Not Have A Primary Care Physician [phone] Gabriela Brunson Attending Clinician GABRIELA FRIEDMAN Attending Clinician Unavailable Physician, No Primary or Family Admitting Clinician Unavaila ble Payers Payer Name Policy Type Policy Number Effective Date Expiration Date S ource Problems Condition Condition Condition Status Onset Resolution Last Treating Co mments Source Name Details Category Date Date Treatment Clinician Date No known No known Disease Unive rs active active ity of problems problems [facility] [place] [facility] Allergies, Adverse Reactions, Alerts Allergy Allergy Status Severity Reaction(s) Onset Inactive Treating Comm ents Source Name Type Date Date Clinician Diphenhy Propensi Active Anxiety 2017-05 Unive rs dramine ty to 0-16 ity of Hcl adverse 00:00: [place] reaction [address] [place] [address] s Branch DIPHENHY DRUG Active Anxiety 2017-05 [facility] DRAMINE INGREDI 0-16 ity of HCL 00:00: [place] [address] Medical [place] No Known DA Active U 2013-05 [facility] Allergie 05-05 00:00: [address] Social History Social Habit Start Date Stop Date Quantity Comments Source Exposure to Not sure [facility] SARS-CoV-2 (event) Medica l Branch Sex Assigned At [birth year] [facility] 00:00:00 00:00:00 [facility] Smoking Status Start Date Stop Date Source Unknown if ever smoked [facility] Medications Ordered Filled Start Stop Current Ordering Indication Dosage Frequency Signature Comments Components Source Medication Medication Date Date Medication? Clinician (SIG) Name Name maalox:diph 2020- No 15mL 15 mL, Uni vers enhydrAMINE 12-28 Oral, ity of :lidocaine 16:45: 15:47 ONCE, 1 Philippe as 2 % viscous 00 :00 dose, [facility] ical 1:1:1 12/28/20 at [place] (FIRST-MOUT 1145, HWASH BLM) Routine oral suspension 15 mL pantoprazol No 40mg 40 mg, Uni vers e 12-28 Slow IV ity of (PROTONIX) 16:45: 15:47 Push, [place] injection 00 :00 ONCE, 1 Medical 40 mg dose, [facility] 12/28/20 at 1145 sucralfate 2020- No [id number] 1g Take 1 Univers 1 gram 12-28 tablet by ity of tablet 00:00: 04:59 mouth [place] 00 :00 before Medical meals and [place] at bedtime for 8 days. Vital Signs Vital Name Observation Time Observation Value Comments Source Systolic blood 2020-12-28 15:39:00 129 mm[Hg] [facility] Diastolic blood 2020-12-28 15:39:00 82 mm[Hg] [facility] Heart rate 2020-12-28 15:39:00 78 /min [facility] Respiratory rate 2020-12-28 15:39:00 20 /min [facility] Body weight 2020-12-28 15:39:00 83.643 kg [facility] BMI 2020-12-28 15:39:00 28.88 kg/m2 [facility] Oxygen saturation in 2020-12-28 15:39:00 100 /min [facility] Arterial blood by [facility] Pulse oximetry [place] Procedures Procedure Date / Time Performed Performing Clinician Parish e XR CHEST 1 VW 2020-12-28 15:56:46 Gabriela Friedman [facility] RAPID STREP SCREEN 2020-12-28 15:50:00 Gabriela Friedman [facility] FOR GROUP A Medical Branch COVID-19 (ID NOW 2020-12-28 15:50:00 Gabriela Friedman [facility] RAPID TESTING) Medical Branch TROPONIN I 2020-12-28 15:47:00 Gabriela Friedman [facility] HEPATIC FUNCTION 2020-12-28 15:47:00 Gabriela Friedman [facility] PANEL (50838) Medical Branch (ALB,T.PRO,BILI T,BU/BC,ALT,AST,ALK PHOS) BASIC METABOLIC PANEL 2020-12-28 15:47:00 Gabriela Friedman [facility] (NA, K, CL, CO2, Medical Branch GLUCOSE, BUN, CREATININE, CA) CBC WITH DIFF 2020-12-28 15:47:00 Gabriela Friedman [facility] NOTICE OF PRIVACY 2020-12-28 15:29:30 Doctor Unassigned, No [facility] PRACTICES Name Medical Branch CONSENT/REFUSAL FOR 2020-12-28 15:29:07 Doctor Unassigned, No [facility] DIAGNOSIS AND Name Medical Branch TREATMENT Encounters Start End Encounter Admission Attending Care Care Encounter Source Date/Time Date/Time Type Type Clinicians Facility Department ID 2020-09-27 Inpatient [facility] [id number] [facility] 11:28:[address] [facility] 2020-12-28 2020-12-28 Emergency Elder [facility] [id number] Univers 10:42:00 12:40:00 Gabriela Jarrell [id number] i ty [facility] [id number] [facility] [id number] [facility] darshan 084 Branch 2020-12-28 2020-12-28 Emergency X ELDER [facility] ERT [id number] Univers 10:27:00 10:27:00 GABRIELA gomez [facility] [place] Results Test Description Test Time Test Comments Results Result Sourc e Comments XR CHEST 1 VW 2020-12-01 Minimal lower lobe Uni versity of 9 opacities may [place] [facility] al 16:53:46 represent atelectasis Bra [facility] orconsolidation RL: [id number]: [id number] History: Chest pain Ordering Physician: GABRIELA FRIEDMAN COMPARISON:None FINDINGS: Single AP view the chest is provided. The trachea is midline. The cardiomediastinal silhouette is within normal limits. ?Minimal lowerlobe opacities may represent atelectasis or consolidation.. ?Thecostophrenic recesses are clear. [facility], Radiant Results Inft User - 12/28/2020 11:54 AM CDT History: Chest painOrdering Physician: GABRIELA FRIEDMAN COMPARISON:NoneFINDIN GS: Single AP view the chest is provided. The trachea is midline. The cardiomediastinal silhouette is within normal limits. Minimal lowerlobe opacities may represent atelectasis or consolidation.. Thecostophrenic recesses are clear.IMPRESSIONMinim al lower lobe opacities may represent atelectasis orconsolidationRL: [id number]: [id number] signed by Porsche Quan MD at 12/28/2020 11:53 AM RAPID STREP SCREEN FOR GROUP A 2020-12-28 16:33:32 Test Item Value Reference Range Interpretation Comme nts Streptococcus pyogenes (group A) antigen (test code = 12275- 2) Negative Negative Lab Interpretation (test code = 65349-4) Normal [facility] [id number] 16:24:06 Test Item Value Reference Range Interpretation Comments TROPONIN I (test code = 0.002 ng/mL See_Comment [Au tomated [id number]) message] The sy stem which generated this result transmitted reference range : <=0.034. The reference range was not used to interpret this result as normal/abnormal . ALVARADO (test code = ALVARADO) Lab Interpretation Normal (test code = 06186-1) [facility]2020-12-28 16:16:42 Test Item Value Reference Range Interpretation Comments SARS-CoV-2 Rapid ID NOW (test Not Detected Not Detected code = 92354-5) ALVARADO (test code = ALVARADO) Lab Interpretation (test code = Normal 13530-9) [facility] (NA, K, CL, CO2, GLUCOSE, BUN, CREATININE, CA)2020-12-28 16:12:05 Test Item Value Reference Range Interpretation Comments NA (test code = 8755039988) 140 mmol/L 135-145 K (test code = 6033115583) 4.1 mmol/L 3.5-5.0 CL (test code = 6754526336) 104 mmol/L 98-108 CO2 TOTAL (test code = 6570384662) 27 mmol/L 23-31 AGAP (test code = 0989729686) 2-16 BUN (test code = 4415653121) 17 mg/dL 7-23 GLUCOSE (test code = 3147639125) 96 mg/dL 70-110 CREATININE (test code = 0.89 mg/dL 0.60-1.25 1353117841) CALCIUM (test code = 6639251706) 9.6 mg/dL 8.6-10.6 eGFR (test code = 4935890907) mL/min/1.73m2 ALVARADO (test code = ALVARADO) [facility]09156[facility] (ALB,T.PRO,BILI T,BU/BC,ALT,AST,ALK PHOS)2020-12-28 16:12:05 Test Item Value Reference Range Interpretation Comments TOTAL BILI (test code = 6785447325) 1.4 mg/dL 0.1-1.1 H BILI UNCON (test code = 7463352067) 1.2 mg/dL 0.1-1.1 H BILI CONJ (test code = 8574989038) 0.0 mg/dL 0.0-0.3 T PROTEIN (test code = 7482862942) 8.1 g/dL 6.3-8.2 ALBUMIN (test code = 8900391284) 4.7 g/dL 3.5-5.0 ALK PHOS (test code = 1008062289) 90 U/L 34-122 ALTv (test code = 1742-6) 35 U/L 5-50 AST(SGOT) (test code = 9300706887) 32 U/L 13-40 Lab Interpretation (test code = Abnormal 92735-0) [facility] WITH [id number] 15:59:04 Test Item Value Reference Range Interpretation Comments WBC (test code = See_Comment [Automated 6690-2) message] The sy stem which generated this result transmitted reference range : 4.20 - 10.70 10*3/?L. The reference range was not used to interpret this result as normal/abnormal . RBC (test code = See_Comment H [Automated 789-8) message] The sy stem which generated this result transmitted reference range : 4.26 - 5.52 10*6/?L. The reference range was not used to interpret this result as normal/abnormal . HGB (test code = 16.5 g/dL 12.2-16.4 H 718-7) HCT (test code = 49.5 % 38.4-49.3 H 4544-3) MCV (test code = 84.8 fL 81.7-95.6 787-2) MCH (test code = 28.3 pg 26.1-32.7 785-6) MCHC (test code = 33.3 g/dL 31.2-35.0 786-4) RDW-SD (test code = 41.7 fL 38.5-51.6 31707-2) RDW-CV (test code = 13.6 % 12.1-15.4 788-0) PLT (test code = See_Comment [Automated 777-3) message] The sy stem which generated this result transmitted reference range : 150 - 328 10*3/ ?L. The reference r luis was not used to interpret this result as normal/abnormal . MPV (test code = 9.3 fL 9.8-13.0 L 59543-0) NRBC/100 WBC (test See_Comment [Automat ed code = 9619720285) message] The system which generated this result transmitted reference range : 0.0 - 10.0 /100 WBCs. The refer ence range was not u sed to interpret th is result as normal/abnormal . NRBC x10^3 (test code <0.01 See_Comment [Auto mated = 8939565825) message] The s ystem which generated this result transmitted reference range : 10*3/?L. The reference range was not used to interpret this result as normal/abnormal . GRAN MAT (NEUT) % 57.8 % (test code = 770-8) IMM GRAN % (test code 0.30 % = 0193061270) LYMPH % (test code = 29.3 % 736-9) MONO % (test code = 9.7 % 5905-5) EOS % (test code = 2.1 % 713-8) BASO % (test code = 0.8 % 706-2) GRAN MAT x10^3(ANC) 4.41 10*3/uL 1.99-6.95 (test code = 6189828186) IMM GRAN x10^3 (test <0.03 0.00-0.06 code = 2153343466) LYMPH x10^3 (test code 2.23 10*3/uL 1.09-3.23 = 731-0) MONO x10^3 (test code 0.74 10*3/uL 0.36-1.02 = 742-7) EOS x10^3 (test code = 0.16 10*3/uL 0.06-0.53 711-2) BASO x10^3 (test code 0.06 10*3/uL 0.01-0.09 = 704-7) Lab Interpretation Abnormal (test code = 27205-5) [facility]- XR KNEE 3 V [id number] 11:41:00 [facility] 1985 Sex: M Patient Name: ELIOT HEMPHILL Unit No: [id number] EXAMS: CPT CODE: [id number] XR KNEE 3 V RT 47691 EXAM: - XR KNEE 3 V RT INDICATION: right knee pain Location: T 18. COMPARISON: None. TECHNIQUE: 3 views. FINDINGS: No acute fracture or dislocation seen. Soft tissues appear grossly unremarkable. IMPRESSION: No acute fracture seen. at 1141 Reported and signed by: Linus Brooks MD CC: Gilberto Gold MD Technologist: Kishore Rocha, RT(R) Transcrpt Date/Tm/Trnsp: 09/27/2020 (1141) [email or web address] Orig Print D/T: S: 09/27/2020 (1144) [facility] NAME: ELIOT HEMPHILL [id number] [address] PHYS: [place] [address] : 1985 AGE: 34 SEX: M LOC: ZDANE PHONE #: [phone] EXAM DATE: 09/27/2020 STATUS: REG ERFAX #: [phone] RADIOLOGY NO: [id number] PAGE 1 Signed Report
[2022-01-10 23:49] LABS: Urine Blood Negative (Negative); Urine Glucose Negative (Negative); Urine Protein Negative (Negative)
[2022-01-10 23:54] LABS: Absolute Lymphocytes (CBC) 2.7 K/uL (0.7-4.9); Hematocrit 47.1 % (39.6-49.0); Lymphocytes % 22.2 % (15.3-44.8); MCV 83.9 fL (80-100); MPV 7.5 fL (7.6-11.3); RBC Red Blood Cell Count 5.61 M/uL (4.33-5.43)
[2022-01-10 23:58] LABS: Protime INR 1.08
[2022-01-11 00:04] LABS: SARS-CoV-2 Antigen Rapid Res Negative (Negative)
[2022-01-11 00:12] LABS: Barbiturates NEGATIVE (NEGATIVE); Benzodiazepines NEGATIVE (NEGATIVE); Cocaine POSITIVE (NEGATIVE); METHAMPHETAM NEGATIVE (NEGATIVE); Methadone NEGATIVE (NEGATIVE); Opiates NEGATIVE (NEGATIVE); Phencyclidine NEGATIVE (NEGATIVE); THC Cannibis NEGATIVE (NEGATIVE)
[2022-01-11 00:12] LABS: ALT/SGPT 24 U/L (12-78); AST/SGOT 13 U/L (15-37); Albumin 3.7 g/dL (3.4-5.0); Alkaline Phosphatase 87 U/L (45-117); BUN Blood Urea Nitrogen 12 mg/dL (7-18); Bicarbonate 24 mmol/L (21-32); Bilirubin Direct 0.1 mg/dL (0-0.2); Bilirubin Total 0.5 mg/dL (0.2-1.0); Glomerular Filtration Rate 114 ml/min (=/>90); Glucose Level 103 mg/dL (74-106); Potassium 3.3 mmol/L (3.5-5.1); Protein, Total 7.6 g/dL (6.4-8.2); Sodium Level 137 mmol/L (136-145)
--- NOTE | 2022-01-11 00:21 | ER ---
Nurse's Notes [facility] Name: Kali Lopez Age: 36 yrs Sex: Male : 1985 Arrival Date: 01/10/2022 Time: 23:19 Bed 19 Private MD: Diagnosis: Alcohol abuse with intoxication, uncomplicated;Suicidal ideations;Cocaine abuse Presentation: 01/10 23:15 Chief complaint: EMS states: EMS called for pt reporting SI with a plan to use a gun to jb4 shoot himself in the head. Coronavirus screen: At this time, the client does not indicate any symptoms associated with coronavirus-19. Ebola Screen: No symptoms or risks identified at this time. 23:15 Initial Sepsis Screen: Does the patient meet any 2 criteria? HR > 90 bpm. Yes Does the jb4 patient have a suspected source of infection? No. Patient's initial sepsis screen is negative. Risk Assessment: Do you want to hurt yourself or someone else? Patient reports desire/thoughts of hurting themselves or someone else. Provider notified. Transition of care: patient was not received from another setting of care. 23:15 Acuity: SALO 2 jb4 23:15 Onset of symptoms was January 11, 2022. jb4 23:51 Method Of Arrival: EMS: [facility] jb4 Historical: - Allergies: 23:15 No Known Allergies; jb4 - Home Meds: 23:15 None [Active]; jb4 - PMHx: 23:15 High Cholesterol; Hypertension; jb4 - PSHx: 23:15 None; jb4 - Immunization history:: Adult Immunizations up to date. - Social history:: Smoking status: Patient reports the use of cigarette tobacco products, smokes one pack cigarettes per day. Screenin:15 Abuse screen: Denies threats or abuse. Nutritional screening: No deficits noted. jb4 Tuberculosis screening: No symptoms or risk factors identified. Fall Risk None identified. Assessment: 23:15 General: Appears in no apparent distress. comfortable, Behavior is cooperative, crying. jb4 Pain: Denies pain. Neuro: Level of Consciousness is awake, alert, obeys commands, Oriented to person, place, time, situation. Cardiovascular: Patient's skin is warm and dry. Respiratory: Airway is patent Respiratory effort is even, unlabored, Respiratory pattern is regular, symmetrical. GI: No signs and/or symptoms were reported involving the gastrointestinal system. : No signs and/or symptoms were reported regarding the genitourinary system. EENT: No signs and/or symptoms were reported regarding the EENT system. Derm: Skin is intact, Skin is pink, warm \\T\\ dry. Musculoskeletal: Circulation, motion, and sensation intact. Range of motion: intact in all extremities. 01/11 02:00 Reassessment: Pt is resting in bed with eyes closed, respirations are even and jb4 unlabored with no s/s of pain or distress noted. 04:00 Reassessment: Patient appears in no apparent distress at this time. No changes from jb4 previously documented assessment. Patient and/or family updated on plan of care and expected duration. Pain level reassessed. 06:07 Reassessment: Patient appears in no apparent distress at this time. No changes from jb4 previously documented assessment. Patient and/or family updated on plan of care and expected duration. Pain level reassessed. 07:22 General:. da4 07:46 General: Appears in no apparent distress. comfortable. da4 07:47 General: pt sleeping in bed not in distress visible to nurse . da4 08:34 Reassessment: Patient and/or family updated on plan of care and expected duration. Pain mb8 level reassessed. Patient is alert, oriented x 3, equal unlabored respirations, skin warm/dry/pink. 09:00 Reassessment: Patient appears in no apparent distress at this time. Patient and/or mb8 family updated on plan of care and expected duration. Pain level reassessed. 1:1 sitter at bedside. 09:17 General: called and was given an update. . mb8 09:29 General: Food tray brought to patient. . mb8 10:00 Reassessment: Patient appears in no apparent distress at this time. Patient and/or mb8 family updated on plan of care and expected duration. Pain level reassessed. Patient is alert, oriented x 3, equal unlabored respirations, skin warm/dry/pink. Patient walked to restroom with staff and returned to room with no issue. 11:00 Reassessment: Patient appears in no apparent distress at this time. No changes from mb8 previously documented assessment. Patient and/or family updated on plan of care and expected duration. Pain level reassessed. Patient's in room visiting. 1:1 sitter at bedside. 12:00 Reassessment: Patient appears in no apparent distress at this time. Patient and/or mb8 family updated on plan of care and expected duration. Pain level reassessed. 13:00 Reassessment: Patient appears in no apparent distress at this time. Patient and/or mb8 family updated on plan of care and expected duration. Pain level reassessed. Patient states feeling better. 14:00 Reassessment: Patient appears in no apparent distress at this time. Patient and/or mb8 family updated on plan of care and expected duration. Pain level reassessed. Patient is alert, oriented x 3, equal unlabored respirations, skin warm/dry/pink. 15:00 Reassessment: No changes from previously documented assessment. Patient and/or family mb8 updated on plan of care and expected duration. Pain level reassessed. Patient had me call his and ask her to bring him food. 16:00 Reassessment: Patient appears in no apparent distress at this time. Patient and/or mb8 family updated on plan of care and expected duration. Pain level reassessed. 17:00 Reassessment: Patient appears in no apparent distress at this time. Patient and/or mb8 family updated on plan of care and expected duration. Pain level reassessed. 18:00 Reassessment: Patient appears in no apparent distress at this time. Patient and/or mb8 family updated on plan of care and expected duration. Pain level reassessed. Patient has concerns of missing work and not being able to provide family. Tried to provide reassurance to patient but hard to do without a time line of how long he will be here. 18:47 General: reports she will bring patient supper in about an hour. If she needs to mb8 be reached, she left two numbers to reach her: [phone] and [phone]. 01/12 07:00 Reassessment: Patient appears in no apparent distress at this time. Patient and/or mb8 family updated on plan of care and expected duration. Pain level reassessed. 08:00 Reassessment: Patient appears in no apparent distress at this time. Patient and/or mb8 family updated on plan of care and expected duration. Pain level reassessed. wants called to bring him breakfast. Paged [facility] to see if they will resceren patient. 09:00 Reassessment: Patient appears in no apparent distress at this time. Patient and/or mb8 family updated on plan of care and expected duration. Pain level reassessed. Dr. Almanza will see patient to determine if he still meets criteria to be admitted. 09:33 Reassessment: Dr. Almanza re-evaluated patient and will discharge him home. mb8 Psych: 01/10 23:15 [place] Suicide Severity Screening: In the past month, have you wished you were jb4 or wished you could go to sleep and not wake up? Patient responds "yes." "In the past month, have you actually had any thoughts of killing yourself?" Patient responds "yes." "In your lifetime, have you ever done anything, started to do anything, or prepared to do anything to end your life?". 23:15 Subjective: Patient's mood is hopeless, Delusions are denied, Hallucinations are denied jb4 Having thoughts of suicide. Plan for suicide is to use a gun to shoot himself in the head. Objective: Patient is cooperative, suspicious, Speech is normal. Interventions: Removed personal items and placed in bag. Patient placed in hospital gown. Searched person for dangerous items. Urine collected and sent for urine drug test. Belonging list filled out. Safety Checks: Personal items have been removed. Door is open. No visitors are present at this time. Patient uses cocaine, Last use was today. Commitment: Patient will be an involuntary commitment. 01/12 08:00 [place] Suicide Severity Screening: In the past month, have you wished you were mb8 or wished you could go to sleep and not wake up? Patient responds "No." "In the past month, have you actually had any thoughts of killing yourself?" Patient responds "no." "In your lifetime, have you ever done anything, started to do anything, or prepared to do anything to end your life?" Patient responds "no.". Subjective: Delusions are denied, Hallucinations are denied Having thoughts of suicide. Subjective:. Objective: Patient is cooperative, Speech is normal, Affect is appropriate. Vital Signs: 01/10 23:15 BP 133 / 85; Pulse 96; Resp 16; Pulse Ox 98% on R/A; Weight 86.18 kg (R); Height 5 ft. jb4 7 in. (170.18 cm) (R); Pain 0/10; 01/11 04:35 Resp 16; Temp 98.0(TE); Pain 0/10; jb4 08:44 BP 125 / 69; Pulse 77; Resp 16; Temp 97.9; Pulse Ox 95% ; Pain 0/10; mb8 01/12 06:59 BP 124 / 94; Pulse 74; Resp 16; Pulse Ox 100% ; ll3 08:30 BP 129 / 83; Pulse 79; Resp 18; Temp 97.6; Pulse Ox 99% ; Pain 0/10; mb8 10:08 BP 119 / 71; Pulse 68; Resp 18; Temp 98.1; Pulse Ox 99% ; Pain 0/10; mb8 01/10 23:15 Body Mass Index 29.76 (86.18 kg, 170.18 cm) jb4 ED Course: 01/10 23:15 Arm band placed on right wrist. jb4 23:19 Patient arrived in ED. ms3 23:19 Darryl Cross DO is Attending Physician. ms3 23:47 Patient has correct armband on for positive identification. Placed in gown. Bed in low mh5 position. Side rails up X 1. 23:48 Initial lab(s) drawn, by ED staff, sent to lab. Urine collected: clean catch specimen, mh5 clear. 23:48 Acetaminophen Sent. mh5 23:48 BMP Sent. mh5 23:48 CBC with Diff Sent. mh5 23:48 Ethanol Sent. mh5 23:48 Hepatic Function Sent. mh5 23:48 Protime (+inr) Sent. mh5 23:48 Ptt, Activated Sent. mh5 23:49 Salicylate Sent. mh5 23:49 Urine Drug Screen Sent. mh5 23:51 SARS-COV-2 Antigen Rapid Sent. mh5 23:51 EKG done, by ED staff, reviewed by Darryl Cross DO COVID swab sent to lab. mh5 23:53 Triage completed. jb4 01/11 00:22 Contacted Gricelda from [facility] to have a screener evaluate the patient. mw2 00:30 Cory from [facility] called to inform us he is in [place] and will be here when he is mw2 done. 00:39 Alfred Botello, RN is Primary Nurse. jb4 02:51 Cory from [facility] arrived to evaluate the patient. mw2 03:44 Faxed patient clinicals to all available psych facilities. mw2 08:25 Primary Nurse role handed off by Alfred Botello RN mb8 08:25 Farhat Liu, RN is Primary Nurse. mb8 08:33 Report received from [facility]. mb8 08:34 Safety Checks: Sitter present at this time. mb8 09:00 No apparent distress. mb8 10:01 Safety Checks: Sitter present at this time. mb8 11:00 Safety Checks: Sitter present at this time. mb8 12:00 Safety Checks: Sitter present at this time. mb8 13:00 Safety Checks: Sitter present at this time. mb8 13:00 Resting quietly. mb8 14:00 Resting quietly. Safety Checks: Sitter present at this time. mb8 15:00 Resting quietly. Safety Checks: Sitter present at this time. mb8 16:00 Resting quietly. Safety Checks: Sitter present at this time. mb8 17:00 No apparent distress. Resting quietly. Safety Checks: Sitter present at this time. mb8 18:00 Resting quietly. Safety Checks: The door is open or patient has been placed in a 8 hallway bed/chair. Sitter present at this time. 19:00 No apparent distress. Resting quietly. ll3 19:00 Safety Checks: The door is open or patient has been placed in a hallway bed/chair. ll3 Sitter present at this time. 19:12 Primary Nurse role handed off by Farhat Liu RN mw2 21:00 No apparent distress. Resting quietly. ll3 22:00 Pt visited by . ll3 01/12 00:00 No apparent distress. Resting quietly. ll3 01:36 No apparent distress. Resting quietly. ll3 03:28 Resting quietly. ll3 07:00 Appears to be sleeping. ll3 07:00 Appears to be sleeping. Safety Checks: The door is open or patient has been placed in a 8 hallway bed/chair. Sitter present at this time. 07:06 Farhat Liu, ELLEN is Primary Nurse. mb8 08:00 Resting quietly. Safety Checks: The door is open or patient has been placed in a 8 hallway bed/chair. Sitter present at this time. 09:00 No apparent distress. Appears to be sleeping. Safety Checks: The door is open or mb8 patient has been placed in a hallway bed/chair. Sitter present at this time. 09:46 Attending Physician role handed off by Darryl Cross DO cha 09:46 Eugene Almanza MD is Attending Physician. [facility] 09:47 Beau Gale MD is Referral Physician. rosa 10:09 No provider procedures requiring assistance completed. Patient did not have IV access mb8 during this emergency room visit. Administered Medications: 01/11 11:36 Drug: Tylenol 1000 mg Route: PO; mb8 13:03 Follow up: Response: No adverse reaction; Pain is decreased mb8 Medication: 01/12 10:09 VIS not applicable for this client. mb8 Outcome: 01/11 00:20 ER care complete, transfer ordered by . ms3 01/12 09:48 Discharge ordered by MD. rosa 10:09 Discharged to home ambulatory. mb8 10:09 Condition: stable 10:09 Discharge instructions given to patient, Instructed on discharge instructions, follow up and referral plans. Demonstrated understanding of instructions, follow-up care. 10:09 Patient left the ED. mb8 Signatures: Eugene Almanza MD MD cha Bryson, James RN RN [id number] Quynh Tang [facility] Kathy Zaman [facility] Darryl Cross DO DO ms3 Jermaine Mcdaniel RN RN [id number] Farhat Liu RN RN mb8 Steffen Benjamin Corrections: (The following items were deleted from the chart) 01/10 23:53 23:51 Chief complaint: EMS states: EMS called for pt reporting SI with a plan to use a jb4 gun to shoot himself in the head. [facility] 23:53 23:51 Coronavirus screen: At this time, the client does not indicate any symptoms jb4 associated with coronavirus-19. [facility] 23:53 23:51 Ebola Screen: No symptoms or risks identified at this time. jb4 [facility] 01/11 04:35 01/10 23:15 BP 133 / 85; Pulse 96bpm; Resp 16bpm; Pulse Ox 98% RA; Pain 0/10; jb4 4 01/12 07:06 07:03 Jermaine Mcdaniel, RN is Primary Nurse. tres mb8 : 07:00 Safety Checks: The door is open or patient has been placed in a hallway 8 bed/chair. Sitter present at this time. ll3 07:06 Primary Nurse role handed off by Jermaine Mcdaniel RN mb8 mb8 07 07:00 Reassessment: Patient appears in no apparent distress at this time. Patient 8 and/or family updated on plan of care and expected duration. Pain level reassessed. 3
--- NOTE | 2022-01-11 00:22 | EDPHYS ---
Physician Documentation [facility] Name: Kali Lopez Age: 36 yrs Sex: Male : 1985 Arrival Date: 01/10/2022 Time: 23:19 Bed 19 Private MD: ED Physician Eugene Almanza HPI: 01/10 23:25 This 36 yrs old Male presents to ER via Unassigned with complaints of suicidal ideation.ms3 23:25 36-year-old male presents via [facility] with [place] [employer] for ms3 suicidal ideations and gestures. EMS states they were called to an area for a hostage situation and the patient was holding a gun to his head threatening to shoot himself. Patient admitted to drinking alcohol and using cocaine. On exam patient denies pain. Patient states he was not being serious. Patient denies nausea or vomiting. Patient denies alleviating or inciting factors. Patient is concerned that he may not make it to work tomorrow.. Historical: - Allergies: 23:15 No Known Allergies; jb4 - Home Meds: 23:15 None [Active]; jb4 - PMHx: 23:15 High Cholesterol; Hypertension; jb4 - PSHx: 23:15 None; jb4 - Immunization history:: Adult Immunizations up to date. - Social history:: Smoking status: Patient reports the use of cigarette tobacco products, smokes one pack cigarettes per day. ROS: 23:25 Constitutional: Negative for fever, and chills. ENT: Negative for injury, pain, and ms3 discharge, Neck: Negative for injury, pain, and swelling, Cardiovascular: Negative for chest pain, and palpitations. Respiratory: Negative for shortness of breath, cough, wheezing, and pleuritic chest pain, Abdomen/GI: Negative for abdominal pain, nausea, vomiting, diarrhea, and constipation, Back: Negative for injury and pain, MS/Extremity: Negative for injury and deformity, Skin: Negative for injury, rash, and discoloration. 23:25 All other systems are negative. Exam: 23:25 Constitutional: This is a well developed, well nourished patient who is awake, alert, ms3 and in no acute distress. Head/Face: Normocephalic, atraumatic. Neck: Trachea midline, no cervical lymphadenopathy. Supple, full range of motion without nuchal rigidity, or vertebral point tenderness. No Meningismus. Chest/axilla: Normal chest wall appearance and motion. Nontender with no deformity. Cardiovascular: Regular rate and rhythm with a normal S1 and S2. No gallops, murmurs, or rubs. Normal PMI, no JVD. No pulse deficits. Respiratory: Lungs have equal breath sounds bilaterally, clear to auscultation and percussion. No rales, rhonchi or wheezes noted. No increased work of breathing, no retractions or nasal flaring. Abdomen/GI: Soft, non-tender, with normal bowel sounds. No distension or tympany. No guarding or rebound. No evidence of tenderness throughout. Skin: Warm, dry with normal turgor. Normal color with no rashes, no lesions, and no evidence of cellulitis. MS/ Extremity: Pulses equal, no cyanosis. Neurovascular intact. Full, normal range of motion. 23:25 Psych: Behavior/mood is cooperative, Affect is calm, Oriented to person, place, time, Patient has no thoughts/intents to harm self or others. 23:49 ECG was reviewed by the Attending Physician. ms3 Vital Signs: 23:15 BP 133 / 85; Pulse 96; Resp 16; Pulse Ox 98% on R/A; Weight 86.18 kg (R); Height 5 ft. jb4 7 in. (170.18 cm) (R); Pain 0/10; 01/11 04:35 Resp 16; Temp 98.0(TE); Pain 0/10; jb4 08:44 BP 125 / 69; Pulse 77; Resp 16; Temp 97.9; Pulse Ox 95% ; Pain 0/10; mb8 01/12 06:59 BP 124 / 94; Pulse 74; Resp 16; Pulse Ox 100% ; ll3 08:30 BP 129 / 83; Pulse 79; Resp 18; Temp 97.6; Pulse Ox 99% ; Pain 0/10; mb8 10:08 BP 119 / 71; Pulse 68; Resp 18; Temp 98.1; Pulse Ox 99% ; Pain 0/10; mb8 01/10 23:15 Body Mass Index 29.76 (86.18 kg, 170.18 cm) jb4 MDM: 01/10 23:19 Patient medically screened. ms3 01/11 00:20 Data reviewed: vital signs, nurses notes, lab test result(s). Counseling: I had a ms3 detailed discussion with the patient and/or guardian regarding: the historical points, exam findings, and any diagnostic results supporting the discharge/admit diagnosis, lab results, the need to transfer to another facility, [facility] does not immediately have the required specialist. 01/10 23:21 Order name: Acetaminophen ms3 01/10 23:21 Order name: BMP ms3 01/10 23:21 Order name: CBC with Diff ms3 01/10 23:21 Order name: Ethanol ms3 01/10 23:21 Order name: Hepatic Function ms3 01/10 23:21 Order name: Protime (+inr) ms3 01/10 23:21 Order name: Ptt, Activated ms3 01/10 23:21 Order name: Salicylate ms3 01/10 23:21 Order name: Urine Drug Screen ms3 01/10 23:21 Order name: SARS-COV-2 Antigen Rapid ms3 01/10 23:50 Order name: Urine Dipstick-Ancillary; Complete Time: 00:16 EDMS 01/10 23:57 Order name: CBC with Automated Diff EDMS 01/10 23:58 Order name: Protime (+INR) EDMS 01/10 23:58 Order name: PTT, Activated Partial Thromb EDMS 01/10 23:21 Order name: EKG; Complete Time: 23:22 ms3 01/11 00:04 Order name: SARS-COV-2 Antigen Rapid EDMS 01/11 00:12 Order name: Salicylates Level EDMS 01/11 00:12 Order name: Urine Drug Screen EDMS 01/11 00:13 Order name: Basic Metabolic Panel EDMS 01/11 00:13 Order name: Liver (Hepatic) Function EDMS 01/11 00:13 Order name: Acetaminophen Level EDMS 01/11 00:13 Order name: Alcohol Serum/Plasma EDMS 01/11 05:19 Order name: Diet Finger Food; Complete Time: 05:20 mh5 01/11 08:55 Order name: Finger Food EDMS 01/11 11:37 Order name: Diet Regular; Complete Time: 11:38 mb8 01/11 11:39 Order name: Finger Food; Complete Time: 17:18 EDMS 01/11 16:16 Order name: Finger Food EDMS 01/12 07:18 Order name: Diet Finger Food; Complete Time: 07:18 mb8 01/12 07:24 Order name: Finger Food EDMS 01/10 23:21 Order name: EKG - Nurse/Tech; Complete Time: 23:49 ms3 01/10 23:21 Order name: IV Saline Lock; Complete Time: 23:49 ms3 01/10 23:21 Order name: Labs collected and sent; Complete Time: 23:49 ms3 01/10 23:21 Order name: O2 Per Protocol; Complete Time: 23:49 ms3 01/10 23:21 Order name: O2 Sat Monitoring; Complete Time: 23:49 ms3 01/10 23:21 Order name: Suicide Precautions; Complete Time: 23:49 ms3 01/10 23:21 Order name: Suicide Screening (Carmine); Complete Time: 23:51 ms3 01/10 23:21 Order name: Urine Dipstick-Ancillary (obtain specimen); Complete Time: 23:49 ms3 EC/11 23:49 Rate is 67 beats/min. Rhythm is regular. QRS [place] is Normal. ID interval is normal. ms3 Clinical impression: Normal ECG. Interpreted by me. Reviewed by me. Administered Medications: 01/11 11:36 Drug: Tylenol 1000 mg Route: PO; mb8 13:03 Follow up: Response: No adverse reaction; Pain is decreased mb8 Disposition Summary: 01/12/22 09:48 Discharge Ordered Location: Home rosa Problem: new(01/12/22 09:48) rosa Symptoms: have improved(01/12/22 09:48) rosa Condition: Stable(01/12/22 09:48) rosa Diagnosis - Alcohol abuse with intoxication, uncomplicated rosa - Suicidal ideations(01/12/22 09:48) rosa - Cocaine abuse(01/12/22 09:48) rosa Followup: rosa - With: Private Physician - When: 2 - 3 days - Reason: Recheck today's complaints, Continuance of care, Re-evaluation by your physician Followup: rosa - With: Beau Gale MD - When: 2 - 3 days - Reason: Recheck today's complaints, Re-evaluation by your physician Discharge Instructions: - Discharge Summary Sheet rosa - Finding Treatment for Addiction rosa - Alcohol Intoxication rosa - Alcohol Use Disorder rosa - Substance Use Disorder rosa - Supporting Someone With an Addiction rosa - Suicidal Feelings: How to Help Yourself rosa - Helping Someone Who is Suicidal rosa - Alcohol Intoxication, [id number] rosa - Alcohol Abuse and Nutrition rosa - Stress, Adult rosa - Alcohol Abuse and Dependence Information, Adult [facility] Forms: - Medication Reconciliation Form rosa - Thank You Letter rosa - Antibiotic Education rosa - Prescription Opioid Use rosa Signatures: Dispatcher [employer] EDEugene Cavazos MD MD cha Bryson, James RN RN jb4 Darryl Cross DO DO ms3 Farhat Liu RN RN mb8 Corrections: (The following items were deleted from the chart) 01/12 09:01/11 00:20 Dr ms3 [facility] 01/12 09:01/11 00:20 Psych Facility ms3 [facility] 01/12 00:20 Higher level of care ms3 [facility] 01/12 09:01/11 00:20 Stable ms3 [facility] 01/12 09:01/11 00:20 new ms3 [facility] 01/12 09:01/11 00:20 are unchanged ms3 [facility] 01/12 09:01/11 00:20 Suicidal ideations ms3 [facility] 01/12 09:01/11 00:20 Cocaine abuse ms3 [facility] 01/12 00:20 Alcohol use, unspecified ms3 [facility]
[2022-01-11] MEDS ORDERED: ACETAMINOPHEN 500 MG TAB ONE (11:40)
--- NOTE | 2022-01-11 15:06 | EKG ---
Test Date: 2022-01-10 Test Time: 23:49:45 Coder: KATLYN MEASUREMENT RESULTS: Intervals: Rate: 67 NV: 142 QRSD: 98 QT: 404 QTc: 426 Bard: P: 58 NV: 142 QRS: 74 T: 76 INTERPRETIVE STATEMENTS: Normal sinus rhythm Normal ECG No previous ECG available for comparison Electronically Signed On 01-11-22 15:06:06 CDT by Montez Pike
[2022-01-12 10:47] VITALS: O2SAT 99
[2022-01-12 10:50] VITALS: BP 119/71; TEMP 98.1
== END 2022-01-12 10:09 | disposition home or self-care (01) ==
LOC: ER 23:07
DX: R45.851 Suicidal ideations (principal); F10.129 Alcohol abuse with intoxication, unspecified; F14.10 Cocaine abuse, uncomplicated; I10 Essential (primary) hypertension; F17.210 Nicotine dependence, cigarettes, uncomplicated
CPT/HCPCS: 36415; 80048; 80076; 80307; 80320; 80329; 81003; 85025; 85610; 85730; 87811; 93005

== ENCOUNTER → 2023-07-12 | Emergency (ER) | payer SELFPAY ==
[~2023-07-12] MED LIST: ACETAMINOPHEN 500 MG TAB ONE; KETOROLAC 30 MG/ML INJ ONE; Magnesium Sulfate 2gm IVPB 2 G/50 ML BAG IV ONE; NA CHLORIDE 0.9% 1,000 ML ONE
--- NOTE | 2023-07-12 10:31 | RAD REPORT ---
EXAM DESCRIPTION: CT - Head Brain Wo Cont - 07/12/2023 10:23 am CLINICAL HISTORY: Headache COMPARISON: 2014 TECHNIQUE: Computed axial tomography of the head was obtained. IV contrast was not requested. All CT scans are performed using dose optimization technique as appropriate and may include automated exposure control or mA/KV adjustment according to patient size. FINDINGS: An intracranial bleed is not seen The ventricles are normal in caliber No significant hypodense areas within the brain visualized No extra-axial fluid collection is noted. Fluid within the sinuses/ mastoids is not seen IMPRESSION: No acute intracranial abnormality is seen If patient's symptoms persist MRI of the brain would be recommended
--- NOTE | 2023-07-12 10:54 | EDPHYS ---
Physician Documentation [facility] Name: Kali Lopez Age: 37 yrs Sex: Male : 1985 Arrival Date: 07/12/2023 Time: 08:53 Bed 5 Private MD: ED Physician Rodger Sanz HPI: 07/11 09:04 This 37 yrs old Male presents to ER via Ambulatory with complaints of Headache.rt 09:04 Patient presents to the ED with left-sided headache for about 3 days. Patient with rt [facility], subsequently left from the waiting room. Patient states that his blood pressure was 160, did take Tylenol, his blood pressure medications due to relief. States the pain has been persistent. Denies other acute complaints at this time, symptoms are moderate severity, no other aggravating or alleviating factors.. Historical: - Allergies: 09:04 Benadryl; iw - PMHx: 09:00 High Cholesterol; Hypertension; iw - Immunization history:: Adult Immunizations unknown. - Family history:: not pertinent. - Social history:: Smoking status: unknown. ROS: 09:04 Constitutional: Negative for fever, chills, and weight loss, Cardiovascular: Negative rt for chest pain, palpitations, and edema, Respiratory: Negative for shortness of breath, cough, wheezing, and pleuritic chest pain, Abdomen/GI: Negative for abdominal pain, nausea, vomiting, diarrhea, and constipation, MS/Extremity: Negative for injury and deformity, Skin: Negative for injury, rash, and discoloration, 09:04 Neuro: Positive for headache, Negative for altered mental status, Exam: 09:04 Constitutional: This is a well developed, well nourished patient who is awake, alert, rt and in no acute distress. Head/Face: Normocephalic, atraumatic. Chest/axilla: Normal chest wall appearance and motion. Nontender with no deformity. No lesions are appreciated. Cardiovascular: Regular rate and rhythm with a normal S1 and S2. No gallops, murmurs, or rubs. Normal PMI, no JVD. No pulse deficits. Respiratory: Lungs have equal breath sounds bilaterally, clear to auscultation and percussion. No rales, rhonchi or wheezes noted. No increased work of breathing, no retractions or nasal flaring. Abdomen/GI: Soft, non-tender, with normal bowel sounds. No distension or tympany. No guarding or rebound. No evidence of tenderness throughout. Skin: Warm, dry with normal turgor. Normal color with no rashes, no lesions, and no evidence of cellulitis. MS/ Extremity: Pulses equal, no cyanosis. Neurovascular intact. Full, normal range of motion. Neuro: Awake and alert, GCS 15, oriented to person, place, time, and situation. Cranial nerves II-XII grossly intact. Motor strength 5/5 in all extremities. Sensory grossly intact. Cerebellar exam normal. Normal gait. Vital Signs: 08:57 BP 111 / 81; Pulse 100; Resp 16; Temp 98.3; Pulse Ox 99% ; iw 11:05 BP 102 / 63; Pulse 76; Resp 16; Pulse Ox 99% on R/A; Pain 3/10; nj1 11:05 Pain Scale: Adult nj1 MDM: 09:02 Patient medically screened. rt 10:54 Differential diagnosis: Migraine, tension headache, intracranial hemorrhage. Data rt reviewed: vital signs, nurses notes, radiologic studies. Independent interpretation of the following test(s) in the Emergency Department CT Scan: My interpretation is No hemorrhage seen on interpretation of CT scan images. Test considered but Not performed: Labs: Symptoms or not consistent with subarachnoid hemorrhage, meningitis, encephalitis, lumbar puncture is not indicated. Care significantly affected by the following chronic conditions: Hypertension. Response to treatment: the patient's symptoms have resolved after treatment. 07/11 09:03 Order name: CT Head Brain wo Cont rt 07/11 10:32 Order name: CT; Complete Time: 10:51 EDMS Administered Medications: 09:10 Drug: Acetaminophen PO 1000 mg PO once Route: PO; nj1 11:11 Follow up: Response: No adverse reaction nj1 09:12 Drug: NS 0.9% IV 1000 ml IV at 1 bolus Per protocol; 1000 mL bolus Route: IV; Rate: 1 nj1 bolus; Site: left forearm; 10:30 Follow up: Response: No adverse reaction; IV Status: Completed infusion; IV Intake: nj1 1000ml 09:13 Drug: Ketorolac IVP 15 mg IVP once Route: IVP; Site: left forearm; nj1 11:11 Follow up: Response: No adverse reaction nj1 09:14 Drug: Magnesium Sulfate IVPB 2 grams IVPB once over 2 hrs Route: IVPB; Infused Over: 2 nj1 hrs; Site: left forearm; 11:05 Follow up: Response: No adverse reaction; IV Status: Completed infusion; IV Intake: [id number] Disposition Summary: 07/12/23 10:54 Discharge Ordered Notes: Location: Home rt Condition: Stable rt Diagnosis - Headache rt Followup: rt - With: Watson Bejarano, DO - When: 5 - 6 days - Reason: Discharge Instructions: - Discharge Summary Sheet rt - General Headache Without Cause rt Forms: - Medication Reconciliation Form rt - Thank You Letter rt - Antibiotic Education rt - Prescription Opioid Use rt - Patient Portal Instructions rt - Leadership Thank You Letter rt - Work release form nj1 Signatures: Dispatcher [employer] Lucy Nieves RN RN iw Rodger Sanz MD MD rt Shirin Mauricio RN RN nj1 Corrections: (The following items were deleted from the chart) 09:05 09:01 Allergies: No Known Allergies; [facility]
--- NOTE | 2023-07-12 10:54 | ER ---
Nurse's Notes [facility] Name: Kali Lopez Age: 37 yrs Sex: Male : 1985 Arrival Date: 07/12/2023 Time: 08:53 Bed 5 Private MD: Diagnosis: Headache Presentation: 07/11 08:58 Chief complaint: Patient states: having a migraine since Tuesday , I went to [facility] and they gave me a pill and I sat in lobby , c/o pain to abdifatah parietal area and feels like my head is squeezing. Coronavirus screen: At this time, the client does not indicate any symptoms associated with coronavirus-19. Ebola Screen: Patient negative for fever greater than or equal to 101.5 degrees Fahrenheit, and additional compatible Ebola Virus Disease symptoms Patient denies exposure to infectious person. Patient denies travel to an Ebola-affected area in the 21 days before illness onset. No symptoms or risks identified at this time. Initial Sepsis Screen: Does the patient meet any 2 criteria? No. Patient's initial sepsis screen is negative. Does the patient have a suspected source of infection? No. Patient's initial sepsis screen is negative. Risk Assessment: Do you want to hurt yourself or someone else? Patient reports no desire to harm self or others. Onset of symptoms was July 09, 2023. 08:58 Method Of Arrival: Ambulatory 08:58 Acuity: SALO 3 iw Historical: - Allergies: 09:04 Benadryl; iw - PMHx: 09:00 High Cholesterol; Hypertension; iw - Immunization history:: Adult Immunizations unknown. - Family history:: not pertinent. - Social history:: Smoking status: unknown. Screenin:30 [facility] ED Fall Risk Assessment (Adult) Score/Fall Risk Level 0 - 2 = Low Risk nj1 Oriented to surroundings, Maintained a safe environment, Hourly rounding (assess needs \T\ fall precautionary measures) done. Abuse screen: Denies threats or abuse. Denies injuries from another. Nutritional screening: No deficits noted. Tuberculosis screening: No symptoms or risk factors identified. Assessment: 09:10 General: Appears in no apparent distress. comfortable, Behavior is calm, cooperative, nj1 appropriate for age. 09:10 Pain: Complains of pain in Head Pain currently is 10 out of 10 on a pain scale. Neuro: nj1 Level of Consciousness is awake, alert, obeys commands, Oriented to person, place, time, situation. Cardiovascular: Patient's skin is warm and dry. Respiratory: Airway is patent Respiratory effort is even, unlabored. 10:10 Reassessment: Not in room, in CT. nj1 11:05 Reassessment: Patient appears in no apparent distress at this time. Patient is alert, nj1 oriented x 3, equal unlabored respirations, skin warm/dry/pink. Patient states feeling better. Patient states symptoms have improved. Vital Signs: 08:57 BP 111 / 81; Pulse 100; Resp 16; Temp 98.3; Pulse Ox 99% ; iw 11:05 BP 102 / 63; Pulse 76; Resp 16; Pulse Ox 99% on R/A; Pain 3/10; nj1 11:05 Pain Scale: Adult nj1 ED Course: 08:56 Patient arrived in ED. mg5 08:58 Rodger Sanz MD is Attending Physician. rt 09:00 Triage completed. iw 09:03 Shirin Mauricio, ELLEN is Primary Nurse. nj1 09:18 Arm band placed on. nj1 09:31 Patient has correct armband on for positive identification. Provided Education on: call nj1 light, fall precautions. 10:53 Watson Bejarano DO is Referral Physician. rt 11:05 No provider procedures requiring assistance completed. IV discontinued, intact, nj1 bleeding controlled. Administered Medications: 09:10 Drug: Acetaminophen PO 1000 mg PO once Route: PO; nj1 11:11 Follow up: Response: No adverse reaction nj1 09:12 Drug: NS 0.9% IV 1000 ml IV at 1 bolus Per protocol; 1000 mL bolus Route: IV; Rate: 1 nj1 bolus; Site: left forearm; 10:30 Follow up: Response: No adverse reaction; IV Status: Completed infusion; IV Intake: nj1 1000ml 09:13 Drug: Ketorolac IVP 15 mg IVP once Route: IVP; Site: left forearm; nj1 11:11 Follow up: Response: No adverse reaction nj1 09:14 Drug: Magnesium Sulfate IVPB 2 grams IVPB once over 2 hrs Route: IVPB; Infused Over: 2 nj1 hrs; Site: left forearm; 11:05 Follow up: Response: No adverse reaction; IV Status: Completed infusion; IV Intake: [id number] Medication: 11:05 VIS not applicable for this client. nj1 Intake: 10:30 IV: 1000ml; Total: 1000ml. nj1 11:05 IV: 50ml; Total: 1050ml. nj1 Outcome: 10:54 Discharge ordered by . rt 11:05 Discharged to home ambulatory, nj1 11:05 Condition: improved 11:05 Discharge instructions given to patient, Instructed on discharge instructions, follow up and referral plans. Demonstrated understanding of instructions, follow-up care, 11:11 Patient left the ED. nj1 Signatures: Lucy Hanks, RN RN iw Rodger Sanz MD MD rt Shirin Mauricio RN RN nj1 Anna Barksdale mg5 Corrections: (The following items were deleted from the chart) 09:05 09:01 Allergies: No Known Allergies; [facility] 09:31 09:10 General: Appears in no apparent distress. comfortable, nj1 nj1
[2023-07-12 11:20] VITALS: BP 102/63; TEMP 98.3; O2SAT 99
== END ==
LOC: ER 08:53
DX: R51.9 Headache, unspecified (principal); I10 Essential (primary) hypertension; Z88.8 Allergy status to other drugs, medicaments and biological substances
CPT/HCPCS: 70450; J3475; J7030

== ENCOUNTER → 2023-07-14 | Emergency (ER) | payer SELFPAY ==
[~2023-07-14] MED LIST changes: -ACETAMINOPHEN 500 MG TAB ONE; +DIAZEPAM 10 MG/2 ML INJ SYRINGE ONE; +METOCLOPRAMIDE 10 MG/2mL INJ ONE; +NA CHLORIDE 0.9% 50 ML ONE
--- NOTE | 2023-07-14 04:29 | ER ---
Nurse's Notes [facility] Name: Kali Lopez Age: 37 yrs Sex: Male : 1985 Arrival Date: 07/14/2023 Time: 02:10 Bed 12 Private MD: Diagnosis: Migraine without aura, not intractable Presentation: 07/13 02:26 Chief complaint: Patient states: I am having a migraine headache. I was here on Tuesday jb4 for the same thing. Coronavirus screen: At this time, the client does not indicate any symptoms associated with coronavirus-19. Ebola Screen: No symptoms or risks identified at this time. Initial Sepsis Screen: Does the patient meet any 2 criteria? HR > 90 bpm. Yes Does the patient have a suspected source of infection? No. Patient's initial sepsis screen is negative. Risk Assessment: Do you want to hurt yourself or someone else? Patient reports no desire to harm self or others. Onset of symptoms was July 14, 2023. Transition of care: patient was not received from another setting of care. 02:26 Method Of Arrival: Ambulatory jb4 02:26 Acuity: SALO 3 jb4 Triage Assessment: 02:27 Headache History: The patient has had previous headaches and this one is similar to jb4 previous episodes. General: Appears in no apparent distress. uncomfortable, Behavior is cooperative, agitated, restless. Pain: Complains of pain in left temporal area Pain does not radiate. Pain currently is 10 out of 10 on a pain scale. Quality of pain is described as stabbing, Pain began 3 hours ago. Is continuous, Also complains of sleeplessness. EENT: No signs and/or symptoms were reported regarding the EENT system. Neuro: Level of Consciousness is awake, alert, obeys commands, Oriented to person, place, time, situation, Reports headache in left frontal area, photophobia. Cardiovascular: Patient's skin is warm and dry. Respiratory: Airway is patent Respiratory effort is even, unlabored, Respiratory pattern is regular, symmetrical. GI: No signs and/or symptoms were reported involving the gastrointestinal system. : No signs and/or symptoms were reported regarding the genitourinary system. Derm: Skin is intact, Skin is pink, warm \T\ dry. Musculoskeletal: Circulation, motion, and sensation intact. Range of motion: intact in all extremities. Historical: - Allergies: 02:27 Benadryl; jb4 - PMHx: 02:27 High Cholesterol; Hypertension; Migraine; jb4 - PSHx: 02:27 neck; Right knee; jb4 - Immunization history:: Adult Immunizations up to date. - Social history:: Smoking status: Patient reports the use of cigarette tobacco products, denies chronic smoking, but will smoke occasionally. - Family history:: not pertinent. Screenin:49 [facility] ED Fall Risk Assessment (Adult) History of falling in the last 3 months, jb4 including since admission No falls in past 3 months (0 pts) Confusion or Disorientation No (0 pts) Intoxicated or Sedated No (0 pts) Impaired Gait No (0 pts) Mobility Assist Device Used No (0 pt) Altered Elimination No (0 pt) Score/Fall Risk Level 0 - 2 = Low Risk Oriented to surroundings, Maintained a safe environment. Abuse screen: Denies threats or abuse. Nutritional screening: No deficits noted. Tuberculosis screening: No symptoms or risk factors identified. Assessment: 03:51 Reassessment: Pt is resting in bed with eyes closed, respirations are even and jb4 unlabored with no s/s of pain or distress noted. 04:30 Reassessment: Patient appears in no apparent distress at this time. No changes from jb4 previously documented assessment. Patient and/or family updated on plan of care and expected duration. Pain level reassessed. D/c pending completion of IV fluids. 05:49 Reassessment: Patient appears in no apparent distress at this time. Patient and/or jb4 family updated on plan of care and expected duration. Pain level reassessed. Patient is alert, oriented x 3, equal unlabored respirations, skin warm/dry/pink. Vital Signs: 02:26 BP 153 / 122; Pulse 101; Resp 16; Temp 99.6(TE); Pulse Ox 100% on R/A; Weight 72.57 kg jb4 (R); Height 5 ft. 7 in. (R); Pain 10/10; 03:52 BP 124 / 69; Pulse 88; Resp 16; Pulse Ox 97% on R/A; jb4 05:49 BP 149 / 95; Pulse 88; Resp 16; Pulse Ox 100% ; jb4 02:26 Body Mass Index 25.06 (72.57 kg, 170.18 cm) jb4 02:26 Pain Scale: Adult jb4 [place] Coma Score: 02:51 Eye Response: spontaneous(4). Motor Response: obeys commands(6). Verbal Response: sp4 oriented(5). Total: 15. ED Course: 02:13 Patient arrived in ED. jj6 02:27 Triage completed. jb4 02:27 Arm band placed on right wrist. jb4 02:30 Patient taken to an exam room, ambulatory. jb4 02:43 Scott Webb MD is Attending Physician. sp4 03:05 Inserted saline lock: 22 gauge in left antecubital area, using aseptic technique. ty Missed attempt(s): 22 gauge in right forearm. Bleeding controlled, band aid applied, catheter tip intact. 04:25 Paulino Roberts DO is Referral Physician. sp4 05:49 Patient has correct armband on for positive identification. Provided Education on: jb4 prescription medication. 05:49 No provider procedures requiring assistance completed. IV discontinued, intact, jb4 bleeding controlled, No redness/swelling at site. Pressure dressing applied. Administered Medications: 03:15 Drug: Ketorolac IVP 30 mg IVP once Route: IVP; Site: left antecubital; jb4 05:52 Follow up: Response: No adverse reaction; Marked relief of symptoms jb4 03:15 Drug: metoCLOPramide IVP 20 mg IVP once; over 15 mins {Note: Administered in 50ml bag jb4 of NS.} Route: IVP; Site: left antecubital; 03:30 Follow up: Response: No adverse reaction; Marked relief of symptoms jb4 03:16 Drug: NS 0.9% IV 1000 ml IV at 1 bolus Per protocol; 1000 mL bolus Route: IV; Rate: 1 jb4 bolus; Site: left antecubital; 04:45 Follow up: Response: No adverse reaction; Marked relief of symptoms; IV Status: jb4 Completed infusion; IV Intake: 1000ml 03:16 Drug: Diazepam IVP 5 mg IVP once Route: IVP; Site: left antecubital; jb4 03:45 Follow up: Response: No adverse reaction; Marked relief of symptoms jb4 03:49 Drug: Magnesium Sulfate IVPB 2 grams IVPB once over 2 hrs Route: IVPB; Infused Over: 2 jb4 hrs; Site: left antecubital; 05:49 Follow up: Response: No adverse reaction; Marked relief of symptoms; IV Status: jb4 Completed infusion; IV Intake: 50ml Medication: 05:49 VIS not applicable for this client. jb4 Intake: 04:45 IV: 1000ml; Total: 1000ml. jb4 05:49 IV: 50ml; Total: 1050ml. jb4 Outcome: 04:29 Discharge ordered by . cuauhtemoc 05:49 Discharged to home ambulatory, with family, anna 05:49 Condition: stable 05:49 Discharge instructions given to patient, Instructed on discharge instructions, follow up and referral plans. no drinking with medication, no driving heavy equipment, medication usage, Demonstrated understanding of instructions, follow-up care, medications, Prescriptions given X 1, 05:53 Patient left the ED. jb4 Signatures: Alfred Botello, RN RN jb4 Gricelda [email or web address] Scott Webb MD MD sp4 Radu Albright
--- NOTE | 2023-07-14 04:29 | EDPHYS ---
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 sp4 Patient states that he has had headache yesterday he was given migraine cocktail in the emergency room and headache has improved but 3 hours ago pain came back. Yesterday patient has had CT head in the emergency department which revealed no abnormality. . 02:51 CT report from yesterday - Name: KALI LOPEZ Acct Number: [id number] sp4 :1985 Age:37 Sex:M Ord Phys: Miquel Garcia MD TECHNIQUE: Computed axial tomography of the head was obtained. IV contrast was not requested. All CT scans are performed using dose optimization technique as appropriate and may include automated exposure control or mA/KV adjustment according to patient size. FINDINGS: An intracranial bleed is not seen The ventricles are normal in caliber No significant hypodense areas within the brain visualized No extra-axial fluid collection is noted. Fluid within the sinuses/ mastoids is not seen IMPRESSION: No acute intracranial abnormality is seen If patient's symptoms persist MRI of the brain would be recommended . Historical: - Allergies: 02:27 Benadryl; jb4 - PMHx: 02:27 High Cholesterol; Hypertension; Migraine; jb4 - PSHx: 02:27 neck; Right knee; jb4 - Immunization history:: Adult Immunizations up to date. - Social history:: Smoking status: Patient reports the use of cigarette tobacco products, denies chronic smoking, but will smoke occasionally. - Family history:: not pertinent. ROS: 02:51 Constitutional: Negative for fever, chills, and weight loss, positive for bilateral sp4 moderate to severe headache 02:51 All other systems are negative, Exam: 02:51 Constitutional: This is a well developed, well nourished patient who is awake, alert, sp4 patient is in mild to moderate distress secondary to headache Head/Face: Normocephalic, atraumatic. Eyes: Pupils equal round and reactive to light, extra-ocular motions intact. Lids and lashes normal. Conjunctiva and sclera are not injected. Cornea within normal limits. Periorbital areas with no swelling, redness, or edema. ENT: Nares patent. No nasal discharge, no septal abnormalities noted. Tympanic membranes are normal and external auditory canals are clear. Oropharynx with no redness, swelling, or masses, exudates, or evidence of obstruction, uvula midline. Mucous membranes moist. Neck: Trachea midline, no thyromegaly or masses palpated, and no cervical lymphadenopathy. Supple, full range of motion without nuchal rigidity, or vertebral point tenderness. Chest/axilla: Normal chest wall appearance and motion. Nontender with no deformity. No lesions are appreciated. Cardiovascular: Regular rate and rhythm with a normal S1 and S2. No gallops, murmurs, or rubs. Normal PMI, no JVD. No pulse deficits. Respiratory: Lungs have equal breath sounds bilaterally, clear to auscultation and percussion. No rales, rhonchi or wheezes noted. No increased work of breathing, no retractions or nasal flaring. Abdomen/GI: Soft, with normal bowel sounds. No distension or tympany. No guarding or rebound. No evidence of tenderness throughout. Back: No spinal tenderness. No costovertebral tenderness. Skin: Warm, dry with normal turgor. Normal color with no rashes, no lesions, and no evidence of cellulitis. MS/ Extremity: Pulses equal, no cyanosis. Neurovascular intact. Full, normal range of motion. Neuro: Awake and alert, GCS 15, oriented to person, place, time, and situation. Cranial nerves II-XII grossly intact. Motor strength 5/5 in all extremities. Sensory grossly intact. Psych: Awake, alert, with orientation to person, place and time. Behavior, mood, and affect are within normal limits Vital Signs: 02:26 BP 153 / 122; Pulse 101; Resp 16; Temp 99.6(TE); Pulse Ox 100% on R/A; Weight 72.57 kg jb4 (R); Height 5 ft. 7 in. (R); Pain 10/10; 03:52 BP 124 / 69; Pulse 88; Resp 16; Pulse Ox 97% on R/A; jb4 05:49 BP 149 / 95; Pulse 88; Resp 16; Pulse Ox 100% ; jb4 02:26 Body Mass Index 25.06 (72.57 kg, 170.18 cm) jb4 02:26 Pain Scale: Adult jb4 [place] Coma Score: 02:51 Eye Response: spontaneous(4). Motor Response: obeys commands(6). Verbal Response: sp4 oriented(5). Total: 15. MDM: 02:48 Patient medically screened. sp4 02:51 Differential diagnosis: cluster headache, migraine, tension headache. Data reviewed: sp4 vital signs, nurses notes. ED course: Improved. 04:23 Consideration of Admission/Observation Escalation of care including sp4 admission/observation considered. ED course: Headache has improved patient is stable for discharge home with p.o. as needed Fioricet. . Administered Medications: 03:15 Drug: Ketorolac IVP 30 mg IVP once Route: IVP; Site: left antecubital; jb4 05:52 Follow up: Response: No adverse reaction; Marked relief of symptoms jb4 03:15 Drug: metoCLOPramide IVP 20 mg IVP once; over 15 mins {Note: Administered in 50ml bag jb4 of NS.} Route: IVP; Site: left antecubital; 03:30 Follow up: Response: No adverse reaction; Marked relief of symptoms jb4 03:16 Drug: NS 0.9% IV 1000 ml IV at 1 bolus Per protocol; 1000 mL bolus Route: IV; Rate: 1 jb4 bolus; Site: left antecubital; 04:45 Follow up: Response: No adverse reaction; Marked relief of symptoms; IV Status: jb4 Completed infusion; IV Intake: 1000ml 03:16 Drug: Diazepam IVP 5 mg IVP once Route: IVP; Site: left antecubital; jb4 03:45 Follow up: Response: No adverse reaction; Marked relief of symptoms jb4 03:49 Drug: Magnesium Sulfate IVPB 2 grams IVPB once over 2 hrs Route: IVPB; Infused Over: 2 jb4 hrs; Site: left antecubital; 05:49 Follow up: Response: No adverse reaction; Marked relief of symptoms; IV Status: jb4 Completed infusion; IV Intake: 50ml Disposition Summary: 07/14/23 04:29 Discharge Ordered Problem: new sp4 Symptoms: have improved sp4 Condition: Fair sp4 Diagnosis - Migraine without aura, not intractable sp4 Followup: sp4 - With: Paulino Roberts DO - When: 7 - 10 days - Reason: Recheck today's complaints Discharge Instructions: - Discharge Summary Sheet sp4 - Migraine Headache, [id number] sp4 Forms: - Patient Portal Instructions sp4 Prescriptions: - Fioricet 50-300-40 mg Oral capsule - take 1 capsule ORAL route every 6 hours PRN headache; 30 capsule; Refills: 0, sp4 Product Selection Permitted Signatures: Alfred Botello RN RN jb4 Scott Webb MD MD sp4
[2023-07-14 06:06] VITALS: BP 149/95; TEMP 99.6; O2SAT 100
== END ==
LOC: ER 02:10
DX: G43.909 Migraine, unspecified, not intractable, without status migrainosus (principal)
CPT/HCPCS: 96361; 96365; 96366; 96375; 99284; J2765; J3360; J3475; J7030

== ENCOUNTER → 2023-07-15 | Emergency (ER) | payer SELFPAY ==
[~2023-07-15] MED LIST changes: +CEFTRIAXONE 2000 MG/VIAL ONE; -METOCLOPRAMIDE 10 MG/2mL INJ ONE; +MORPHINE 4 MG/ML SYR ONE; -Magnesium Sulfate 2gm IVPB 2 G/50 ML BAG IV ONE; +NA CHLORIDE 0.9% 100 ML ONE; -NA CHLORIDE 0.9% 50 ML ONE; +NA CHLORIDE 0.9% 500 ML ONE; +ONDANSETRON 4 MG/2 ML VIAL ONE; +VANCOMYCIN 1 GM/VIAL ONE; +VANCOMYCIN 500 MG/VIAL ONE
[2023-07-15 03:54] LABS: Absolute Basophils 0.2 K/uL (0-0.5); Absolute Eosinophils 0.2 K/uL (0-0.5); Absolute Lymphocytes (CBC) 3.1 K/uL (0.7-4.9); Absolute Monocytes 1.1 K/uL (0.1-1.3); Absolute Neutrophil 6.8 K/uL (1.8-8.0); Basophils % 1.4 % (0-1.3); Eosinophils % 1.6 % (0-4.4); Hematocrit 43.1 % (39.6-49.0); Hemoglobin 14.9 g/dL (13.6-17.9); Lymphocytes % 27.5 % (15.3-44.8); MCH 29.2 pg (27.0-35.0); MCHC 34.5 g/dL (32.0-36.0); MCV 84.6 fL (80-100); MPV 7.9 fL (7.6-11.3); Monocytes % 9.8 % (3.3-12.3); Neutrophils % 59.7 % (41.7-73.7); Nucleated Red Blood Cells % 0.3 % (0-0); Platelets 338 thou/uL (152-406); Red Cell Distribution Width 14.1 % (12.1-15.2)
[2023-07-15 04:00] LABS: Specific Gravity 1.007 (1.005-1.030); Sqamous Epithelial None Seen /HPF (None Seen); Urine Bacteria None Seen /HPF (<20); Urine Bilirubin NEGATIVE (Negative); Urine Blood Negative (Negative); Urine Clarity Clear (Clear); Urine Color Colorless (Yellow); Urine Culture Reflex Order NOT NEEDED; Urine Glucose NEGATIVE (Negative); Urine Ketones NEGATIVE (Negative); Urine Micro Reflex YN NO BILL MICROSCOPIC; Urine Nitrite NEGATIVE (Negative); Urine Protein NEGATIVE (Negative); Urine RBC <5 /HPF (None Seen); Urine Urobilinogen Normal (Normal); Urine WBC <5 /HPF (<5); Urine pH 7.5 (5.0-7.0)
[2023-07-15 04:03] LABS: PT Prothrombin Time 11.4 SECONDS (9.5-12.5); Protime INR 1.04
[2023-07-15 04:09] LABS: Barbiturates POSITIVE (NEGATIVE); Benzodiazepines NEGATIVE (NEGATIVE); Cocaine POSITIVE (NEGATIVE); METHAMPHETAM NEGATIVE (NEGATIVE); Methadone NEGATIVE (NEGATIVE); Opiates NEGATIVE (NEGATIVE); Phencyclidine NEGATIVE (NEGATIVE); THC Cannibis NEGATIVE (NEGATIVE)
[2023-07-15 04:15] LABS: ALT/SGPT 79 U/L (16-61); AST/SGOT 81 U/L (15-37); Albumin 3.4 g/dL (3.4-5.0); Albumin/Globulin Ratio 0.8 (1.1-1.8); Alkaline Phosphatase 102 U/L (45-117); Anion Gap 11.2 mEq/L (5.0-15.0); BUN Blood Urea Nitrogen 11 mg/dL (7-18); Bicarbonate 23 mEq/L (21-32); Bilirubin Total 0.3 mg/dL (0.2-1.0); Globulin 4.1 g/dL (2.3-3.5); Glomerular Filtration Rate 111 ml/min (=/>90); Glucose Level 101 mg/dL (74-106); Magnesium 1.8 mg/dL (1.6-2.4); NT PRO-BNP 160 pg/mL (<125); Potassium 3.2 mEq/L (3.5-5.1); Protein, Total 7.5 g/dL (6.4-8.2); Sodium Level 136 mEq/L (136-145); Troponin High Sensitivity 10.3 pg/mL (<58.9)
[2023-07-15 04:18] LABS: Bilirubin Direct < 0.1 mg/dL (0-0.2); Bilirubin Indirect, Calculated ND mg/dL (0.2-0.8)
--- NOTE | 2023-07-15 06:33 | EDPHYS ---
Physician Documentation [facility] Name: Kali Lopez Age: 37 yrs Sex: Male : 1985 Arrival Date: 07/15/2023 Time: 03:12 Bed 4 Private MD: ED Physician Scott Webb HPI: 07/14 04:44 This 37 yrs old Male presents to ER via Wheelchair with complaints of Headache.sp4 04:44 37-year-old male presents sudden acute onset of headache. . sp4 04:45 Patient was here for the same complaint 07/12/2023, and 07/14/2023. Patient reports sp4 cocaine abuse. Historical: - Allergies: 03:45 Benadryl; pf1 - PMHx: 03:45 High Cholesterol; Hypertension; Migraine; pf1 - PSHx: 03:45 neck; right knee; pf1 - Immunization history:: Adult Immunizations up to date, Client reports receiving the 2nd dose of the Covid vaccine, Last tetanus immunization: > 10 years ago Flu vaccine is not up to date. - Social history:: Smoking status: Patient reports the use of cigarette tobacco products, Patient uses alcohol, occasionally. street drugs, cocaine. - Family history:: not pertinent. ROS: 04:45 Constitutional: Negative for fever, chills, and weight loss, positive headache , sp4 positive cocaine abuse 04:45 All other systems are negative, Exam: 04:45 Constitutional: This is a well developed, well nourished patient who is awake, alert, sp4 In moderate distress Head/Face: Normocephalic, atraumatic. Eyes: Pupils equal round and reactive to light, extra-ocular motions intact. Lids and lashes normal. Conjunctiva and sclera are not injected. Cornea within normal limits. Periorbital areas with no swelling, redness, or edema. ENT: Nares patent. No nasal discharge, no septal abnormalities noted. Tympanic membranes are normal and external auditory canals are clear. Oropharynx with no redness, swelling, or masses, exudates, or evidence of obstruction, uvula midline. Mucous membranes moist. Neck: Trachea midline, no thyromegaly or masses palpated, and no cervical lymphadenopathy. Supple, full range of motion without nuchal rigidity, or vertebral point tenderness. Chest/axilla: Normal chest wall appearance and motion. Nontender with no deformity. No lesions are appreciated. Cardiovascular: Regular rate and rhythm with a normal S1 and S2. No gallops, murmurs, or rubs. Normal PMI, no JVD. No pulse deficits. Respiratory: Lungs have equal breath sounds bilaterally, clear to auscultation and percussion. No rales, rhonchi or wheezes noted. No increased work of breathing, no retractions or nasal flaring. Abdomen/GI: Soft, with normal bowel sounds. No distension or tympany. No guarding or rebound. No evidence of tenderness throughout. Back: No spinal tenderness. No costovertebral tenderness. Skin: Warm, dry with normal turgor. Normal color with no rashes, no lesions, and no evidence of cellulitis. MS/ Extremity: Pulses equal, no cyanosis. Neurovascular intact. Full, normal range of motion. Neuro: Awake and alert, GCS 15, oriented to person, place, time, and situation. Cranial nerves II-XII grossly intact. Motor strength 5/5 in all extremities. Sensory grossly intact. Psych: Awake, alert, with orientation to person, place and time. Behavior - mild to moderate agitation 06:13 ECG was reviewed by the Attending Physician. EKG at 0 422 ventricular rate 65 bpm sp4 normal EKG Vital Signs: 03:16 BP 156 / 110; Pulse 107; Resp 18; Temp 98.3; Pulse Ox 100% on R/A; Weight 78.02 kg; pf1 Height 5 ft. 7 in. ; Pain 10/10; 05:00 BP 149 / 98; Pulse 72; Resp 16 S; Pulse Ox 95% on R/A; jw7 06:30 BP 140 / 86; Pulse 77; Resp 13 S; Pulse Ox 97% on R/A; jw7 03:16 Body Mass Index 26.94 (78.02 kg, 170.18 cm) pf1 03:16 Pain Scale: Adult pf1 Mangum Coma Score: 06:14 Eye Response: spontaneous(4). Motor Response: obeys commands(6). Verbal Response: sp4 oriented(5). Total: 15. MDM: 03:22 Patient medically screened. sp4 06:14 Differential diagnosis: cluster headache, cerebral vascular accident, epidural sp4 hematoma, hypoglycemia, migraine, vasomotor headache. Data reviewed: vital signs, nurses notes, old medical records, lab test result(s), EKG, radiologic studies, CT scan. Consideration of Admission/Observation Escalation of care including admission/observation considered. 06:15 ED course: CLINICAL HISTORY: HEADACHE COMPARISON: None. TECHNIQUE: CT HEAD AND CERVICAL sp4 SPINE WITHOUT CONTRAST on 07/15/2023 3:19 AM CDT This exam was performed according to our departmental dose-optimization program, which includes automated exposure control, adjustment of the mA and/or kV according to patient size and/or use of iterative reconstruction technique. FINDINGS: Brain: There is no acute hemorrhage, mass effect or midline shift. Anderson-white differentiation is preserved. There is no hydrocephalus. There is no significant volume loss for age. The calvarium is intact. Orbits and globes are unremarkable. The paranasal sinuses are clear. Mastoid air cells are clear. Cervical Spine: There is no acute fracture. Alignment is anatomic. There is anterior fusion of the C4-5 disc. Disc spaces are maintained. Vertebral body heights are preserved. Soft tissues are unremarkable. IMPRESSION: No acute postraumatic findings.. 06:25 ED course: EXAM DESCRIPTION: Chest Single View CLINICAL HISTORY: CHEST PAIN COMPARISON: sp4 None TECHNIQUE: Single AP view of the chest. FINDINGS: Lung volumes adequate. Cardiac silhouette is normal in size. No pneumothorax. No large pleural effusion. No focal consolidation. No displaced fractures. Partially visualized cervical spine hardware. IMPRESSION: No acute cardiopulmonary findings. 06:29 ED course: this is a very pleasant man, hard time focusing with moderate to severe sp4 headache. On exam patient has no signs of meningitis or encephalitis. He is positive for cocaine likely cocaine induced tension headache. CT head negative today. . 06:31 ED course: Patient stable for discharge home with recommendation to discontinue cocaine sp4 abuse. . 07/14 03:13 Order name: Basic Metabolic Panel sp4 07/14 03:13 Order name: CBC with Diff; Complete Time: 04:43 sp4 07/14 03:13 Order name: LFT's sp4 07/14 03:13 Order name: Magnesium sp4 07/14 03:13 Order name: NT PRO-BNP sp4 07/14 03:13 Order name: PT-INR; Complete Time: 04:43 sp4 07/14 03:13 Order name: Troponin HS sp4 07/14 03:13 Order name: CRP 4 07/14 03:13 Order name: Blood Culture Adult (2) 4 07/14 03:21 Order name: Urine Drug Screen; Complete Time: 04:43 4 07/14 03:21 Order name: Urinalysis W/Microscopic; Complete Time: 04:43 4 07/14 03:22 Order name: Procalcitonin 4 07/14 03:22 Order name: Lactate w/ 2H reflex if indic.; Complete Time: 04:43 4 07/14 03:19 Order name: CT Head C Spine 07/14 03:21 Order name: Chest Single View XRAY 07/14 03:13 Order name: EKG; Complete Time: 03:14 4 07/14 03:13 Order name: Cardiac monitoring; Complete Time: 05:18 4 07/14 03:13 Order name: EKG - Nurse/Tech; Complete Time: 05:17 4 07/14 03:13 Order name: IV Saline Lock; Complete Time: 04:19 4 07/14 03:13 Order name: Labs collected and sent; Complete Time: 04:19 4 07/14 03:13 Order name: O2 Per Protocol; Complete Time: 04:19 4 07/14 03:13 Order name: O2 Sat Monitoring; Complete Time: 04:19 EC:13 Rate is 65 beats/min. Rhythm is regular, Normal Sinus Rhythm. QRS [place] is Normal. MT sp4 interval is normal. QRS interval is normal. QT interval is normal. No Q waves. T waves are Normal. No ST changes noted. Clinical impression: Normal ECG. Interpreted by me. Reviewed by me. Administered Medications: 04:00 Drug: morphine IVP or IV 4 mg IVP once over 4 mins Route: IVP; Infused Over: 4 mins; vc1 Site: left antecubital; 06:57 Follow up: Response: No adverse reaction; Marked relief of symptoms; Pain is decreased jw7 04:00 Drug: Diazepam IVP 5 mg IVP once Route: IVP; Site: left antecubital; vc1 06:57 Follow up: Response: No adverse reaction jw7 04:00 Drug: NS 0.9% IV 1000 ml IV at 1 bolus Per protocol; 1000 mL bolus Route: IV; Rate: 1 vc1 bolus; Site: left antecubital; 06:57 Follow up: Response: No adverse reaction; IV Status: Completed infusion; IV Intake: jw7 1000ml 04:00 Drug: Ondansetron IVP 4 mg IVP once; over 2 minutes Route: IVP; Site: left antecubital; vc1 06:56 Follow up: Response: No adverse reaction jw7 04:00 Drug: Ketorolac IVP 30 mg IVP once Route: IVP; Site: left antecubital; vc1 06:56 Follow up: Response: No adverse reaction; Marked relief of symptoms; Pain is decreased jw7 05:16 Not Given (Physician Discretion): Rocephin - rocephin (ceftriaxone)2 grams IVPB once jw7 over 30 mins; (mix in 100 mL NS) 05:16 Not Given (Physician Discretion): [id number] mg/kg IVPB once; once over 2 hours; not jw7 to exceed 2 grams; (mix in 250 to 500mL NS) 05:16 Drug: NS 0.9% IV 1000 ml IV at 125 ml/hr continuous Route: IV; Rate: 125 ml/hr; Site: [facility] right forearm; 06:57 Follow up: Response: No adverse reaction; IV Status: Completed infusion; IV Intake: jw7 250ml 05:30 Drug: morphine IVP or IV 4 mg IVP once over 4 mins Route: IVP; Infused Over: 4 mins; jw7 Site: right forearm; 06:56 Follow up: Response: No adverse reaction; Marked relief of symptoms; Pain is decreased jw7 Disposition Summary: 07/15/23 06:32 Discharge Ordered Notes: Location: Home sp4 Problem: new sp4 Symptoms: have improved sp4 Condition: Stable sp4 Diagnosis - Tension-type headache sp4 - Cocaine abuse sp4 Followup: sp4 - With: Paulino Roberts DO - When: 7 - 10 days - Reason: Recheck today's complaints Discharge Instructions: - Discharge Summary Sheet sp4 - Tension Headache, Adult, [id number] sp4 Forms: - Patient Portal Instructions sp4 Prescriptions: - naproxen 500 mg Oral tablet - take 1 tablet ORAL route daily PRN headache; 30 tablet; Refills: 0, Product sp4 Selection Permitted Signatures: Dispatcher [facility] Ruby Magaña RN RN vc1 Vandana Brooks RN RN jw7 Annika Acevedo RN RN pf1 Scott Webb MD MD sp4 Corrections: (The following items were deleted from the chart) 05:17 03:19 LP Consents ordered. sp4 jw7
--- NOTE | 2023-07-15 06:33 | ER ---
Nurse's Notes [facility] Name: Kali Lopez Age: 37 yrs Sex: Male : 1985 Arrival Date: 07/15/2023 Time: 03:12 Bed 4 Private MD: Diagnosis: Tension-type headache;Cocaine abuse Presentation: 07/14 03:16 Chief complaint: Patient states: headache pain of 10,onset Tuesday. pf1 03:16 Coronavirus screen: Vaccine status: Patient reports receiving the 2nd dose of the covid pf1 vaccine. Client denies travel out of the [place] in the last 14 days. Client presents with at least one sign or symptom that may indicate coronavirus-19. Ebola Screen: Patient negative for fever greater than or equal to 101.5 degrees Fahrenheit, and additional compatible Ebola Virus Disease symptoms. Initial Sepsis Screen: Does the patient meet any 2 criteria? HR > 90 bpm. No. Patient's initial sepsis screen is negative. Does the patient have a suspected source of infection? No. Patient's initial sepsis screen is negative. Risk Assessment: Do you want to hurt yourself or someone else? Patient reports no desire to harm self or others. 03:16 Method Of Arrival: Wheelchair pf1 03:16 Acuity: SALO 3 pf1 04:18 Onset of symptoms was July 10, 2023. jw7 Triage Assessment: 03:16 Headache History: The patient has had previous headaches and this one is more severe pf1 than previous episodes. 03:16 General: Appears uncomfortable, well groomed, well developed, Behavior is anxious. pf1 03:16 Pain: Complains of pain in headache Pain currently is 10 out of 10 on a pain scale. pf1 Neuro: Reports headache that is the "worst ever", since Tuesday. Historical: - Allergies: 03:45 Benadryl; pf1 - PMHx: 03:45 High Cholesterol; Hypertension; Migraine; pf1 - PSHx: 03:45 neck; right knee; pf1 - Immunization history:: Adult Immunizations up to date, Client reports receiving the 2nd dose of the Covid vaccine, Last tetanus immunization: > 10 years ago Flu vaccine is not up to date. - Social history:: Smoking status: Patient reports the use of cigarette tobacco products, Patient uses alcohol, occasionally. street drugs, cocaine. - Family history:: not pertinent. Screenin:45 [facility] ED Fall Risk Assessment (Adult) History of falling in the last 3 months, jw7 including since admission No falls in past 3 months (0 pts) Confusion or Disorientation No (0 pts) Intoxicated or Sedated Yes (3 pts) Impaired Gait Yes (1 pt) Mobility Assist Device Used No (0 pt) Altered Elimination No (0 pt) Score/Fall Risk Level 3 or more points = High Risk Oriented to surroundings, Maintained a safe environment, Educated pt \\T\\ family on fall prevention, incl call for assistance when getting out of bed, Assessed \\T\\ reinforced patient's understanding of fall precautions. Abuse screen: Denies threats or abuse. Denies injuries from another. Nutritional screening: No deficits noted. Tuberculosis screening: No symptoms or risk factors identified. Assessment: 03:16 General: Patient thrashing around in bed yelling it hurts it hurts. IV started by ALY, 1 RN. 03:20 General: Pt picked up phone and called sister. Pt on phone with sister crying stating vc1 "I am in so much pain and they aren't doing anything. . 03:22 General: Patient shaking hands in the air screaming my hands are going numb. Asked vc1 patient to stay still so I can get blood culture, patient pulls arm away and screams, "you're not the one in pain and my hands are going numb" Asked patient to breath in slowly through his nose because he is hyperventilating and that is probably why his hands are going numb. He needs to slow his breathing down. . 03:40 General: Patient screaming "I have to pee I have to pee" informed patient that I need vc1 to finish collecting blood so I can go get his medications. Patient given urinal by charge nurse. Pt states, I'm not peeing with you in the room, and I need to sit up". 03:41 General: pt sitting up on the side of the bed using urinal.. 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 "Patient yelling I am in so much pain and they haven't given me anything" Asked patient if he would like the pain medication I have in my hand or is he leaving. Pt does not respond to me. Patient looks at mom and starts yelling, "take me somewhere else" I repeat to patient do you want me to give the pain medicine to you. Pt does not answer. Mom states yes he wants it he is staying here. Pt states I want a new nurse that isn't yelling at me. . 03:59 General: informed charge nurse that patient would like a new nurse. patient in room vc1 screaming at mom to take him somewhere else.. 04:30 General: Appears in no apparent distress. comfortable, Behavior is cooperative, jw7 agitated, fussy. Pain: Complains of pain in Head Pain does not radiate. Pain currently is 2 out of 10 on a pain scale. Quality of pain is described as throbbing, Pain began 2-3 days ago. Is intermittent. Neuro: Level of Consciousness is awake, alert, obeys commands, Oriented to person, place, time, situation. Cardiovascular: Heart tones S1 S2 present Capillary refill < 3 seconds Clubbing of nail beds is absent JVD is absent Patient's skin is warm and dry. Respiratory: Airway is patent Trachea midline Respiratory effort is even, unlabored, Respiratory pattern is regular, symmetrical, Breath sounds are clear bilaterally. GI: Abdomen is flat, non-distended, Bowel sounds present X 4 quads. Abd is soft and non tender X 4 quads. : No deficits noted. No signs and/or symptoms were reported regarding the genitourinary system. EENT: No deficits noted. No signs and/or symptoms were reported regarding the EENT system. Derm: Skin is intact, is healthy with good turgor, Skin is dry, Skin is normal, Skin temperature is warm. Musculoskeletal: Circulation, motion, and sensation intact. Range of motion: intact in all extremities. 05:30 Reassessment: Patient appears in no apparent distress at this time. No changes from jw7 previously documented assessment. Patient and/or family updated on plan of care and expected duration. Pain level reassessed. Patient is alert, oriented x 3, equal unlabored respirations, skin warm/dry/pink. 06:29 Reassessment: Patient appears in no apparent distress at this time. Patient and/or jw7 family updated on plan of care and expected duration. Pain level reassessed. Patient is alert, oriented x 3, equal unlabored respirations, skin warm/dry/pink. Patient states feeling better. Patient states symptoms have improved. Vital Signs: 03:16 BP 156 / 110; Pulse 107; Resp 18; Temp 98.3; Pulse Ox 100% on R/A; Weight 78.02 kg; pf1 Height 5 ft. 7 in. ; Pain 10/10; 05:00 BP 149 / 98; Pulse 72; Resp 16 S; Pulse Ox 95% on R/A; jw7 06:30 BP 140 / 86; Pulse 77; Resp 13 S; Pulse Ox 97% on R/A; jw7 03:16 Body Mass Index 26.94 (78.02 kg, 170.18 cm) pf1 03:16 Pain Scale: Adult pf1 Daphne Coma Score: 06:14 Eye Response: spontaneous(4). Motor Response: obeys commands(6). Verbal Response: sp4 oriented(5). Total: 15. ED Course: 03:12 Patient arrived in ED. jj6 03:13 Scott Webb MD is Attending Physician. sp4 03:38 Initial lab(s) drawn, by me, First set of blood cultures drawn by me, Urine collected: vc1 clean catch specimen, clear, Amount Voided: 400mL. 03:45 Triage completed. pf1 03:45 Patient has correct armband on for positive identification. Bed in low position. Call jw7 light in reach. Side rails up X2. Provided Education on: proper use of call light. 04:16 Chest Single View XRAY In Process Unspecified. EDMS 04:18 Arm band placed on. jw7 04:42 CT Head C Spine In Process Unspecified. EDMS 04:50 Inserted saline lock: 22 gauge in right forearm, using aseptic technique. jw7 05:30 EKG done, by ED staff, reviewed by Scott Webb MD. jw7 06:31 Paulino Roberts DO is Referral Physician. sp4 06:56 No provider procedures requiring assistance completed. IV discontinued, intact, jw7 bleeding controlled, No redness/swelling at site. Pressure dressing applied. Administered Medications: 04:00 Drug: morphine IVP or IV 4 mg IVP once over 4 mins Route: IVP; Infused Over: 4 mins; vc1 Site: left antecubital; 06:57 Follow up: Response: No adverse reaction; Marked relief of symptoms; Pain is decreased jw7 04:00 Drug: Diazepam IVP 5 mg IVP once Route: IVP; Site: left antecubital; vc1 06:57 Follow up: Response: No adverse reaction jw7 04:00 Drug: NS 0.9% IV 1000 ml IV at 1 bolus Per protocol; 1000 mL bolus Route: IV; Rate: 1 vc1 bolus; Site: left antecubital; 06:57 Follow up: Response: No adverse reaction; IV Status: Completed infusion; IV Intake: jw7 1000ml 04:00 Drug: Ondansetron IVP 4 mg IVP once; over 2 minutes Route: IVP; Site: left antecubital; vc1 06:56 Follow up: Response: No adverse reaction jw7 04:00 Drug: Ketorolac IVP 30 mg IVP once Route: IVP; Site: left antecubital; vc1 06:56 Follow up: Response: No adverse reaction; Marked relief of symptoms; Pain is decreased jw7 05:16 Not Given (Physician Discretion): Rocephin - rocephin (ceftriaxone)2 grams IVPB once jw7 over 30 mins; (mix in 100 mL NS) 05:16 Not Given (Physician Discretion): [id number] mg/kg IVPB once; once over 2 hours; not jw7 to exceed 2 grams; (mix in 250 to 500mL NS) 05:16 Drug: NS 0.9% IV 1000 ml IV at 125 ml/hr continuous Route: IV; Rate: 125 ml/hr; Site: [facility] right forearm; 06:57 Follow up: Response: No adverse reaction; IV Status: Completed infusion; IV Intake: jw7 250ml 05:30 Drug: morphine IVP or IV 4 mg IVP once over 4 mins Route: IVP; Infused Over: 4 mins; jw7 Site: right forearm; 06:56 Follow up: Response: No adverse reaction; Marked relief of symptoms; Pain is decreased jw7 Medication: 04:27 VIS not applicable for this client. vc1 Intake: 06:57 IV: 250ml; Total: 250ml. jw7 06:57 IV: 1000ml; Total: 1250ml. jw7 Outcome: 06:32 Discharge ordered by MD. posadas 06:56 Discharged to home ambulatory, jw7 06:56 Condition: stable 06:56 Discharge instructions given to patient, Instructed on discharge instructions, follow up and referral plans. medication usage, Demonstrated understanding of instructions, follow-up care, medications, Prescriptions given X 1, 06:58 Patient left the ED. 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 "Patient yelling I am in so much pain and they haven't given me anything" Asked patient if he would like the pain medication I have in my hand or is he leaving. Pt does not respond to me. Patient looks at mom and starts yelling, "take me somewhere else" I repeat to patient do you want me to give the pain medicine to you. Pt does not answer. Mom states yes he wants it he is staying here. Pt states I want a new nurse that isn't yelling at me. . vc1 06:55 06:29 Reassessment: Patient appears in no apparent distress at this time. No changes jw7 from previously documented assessment. Patient and/or family updated on plan of care and expected duration. Pain level reassessed. Patient is alert, oriented x 3, equal unlabored respirations, skin warm/dry/pink. jw7
[2023-07-15 07:22] VITALS: BP 140/86; TEMP 98.3; O2SAT 97
--- NOTE | 2023-07-15 17:21 | EKG ---
Test Date: 2023-07-15 Test Time: 04:22:56 Preparatory Technician: HARMAN MEASUREMENT RESULTS: Intervals: Rate: 65 MI: 136 QRSD: 100 QT: 428 QTc: 445 [place]: P: 59 MI: 136 QRS: 58 T: 54 INTERPRETIVE STATEMENTS: Normal sinus rhythm Normal ECG Compared to ECG 01/10/2022 23:49:45 No significant changes Electronically Signed On 07-15-23 17:19:48 CDT by Montez Pike
--- NOTE | 2023-07-16 14:26 | RAD REPORT ---
EXAM DESCRIPTION: RAD - Chest Single View - 07/15/2023 4:14 am CLINICAL HISTORY: CHEST PAIN COMPARISON: None TECHNIQUE: Single AP view of the chest. FINDINGS: Lung volumes adequate. Cardiac silhouette is normal in size. No pneumothorax. No large pleural effusion. No focal consolidation. No displaced fractures. Partially visualized cervical spine hardware. IMPRESSION: No acute cardiopulmonary findings. Electronically signed by: Alden Silverman MD 07/15/2023 05:14 AM CDT Due to temporary technical issues with the PACS/Fluency reporting system, reports are being signed by the in house radiologists without review as a courtesy to insure prompt reporting. The interpreting radiologist is fully responsible for the content of the report.
--- NOTE | 2023-07-16 14:39 | RAD REPORT ---
EXAM DESCRIPTION: CT - Head C Spine Mpr Wo Con - 07/15/2023 6:52 am CLINICAL HISTORY: HEADACHE COMPARISON: None. TECHNIQUE: CT HEAD AND CERVICAL SPINE WITHOUT CONTRAST on 07/15/2023 3:19 AM CDT This exam was performed according to our departmental dose-optimization program, which includes autom ated exposure control, adjustment of the mA and/or kV according to patient size and/or use of iterati ve reconstruction technique. FINDINGS: Brain: There is no acute hemorrhage, mass effect or midline shift. Anderson-white differentiat ion is preserved. There is no hydrocephalus. There is no significant volume loss for age. The calvarium is intact. Orbits and globes are unremarkable. The paranasal sinuses are clear. Mastoid air cells are clear. Cervical Spine: There is no acute fracture. Alignment is anatomic. There is anterior fusion of the C4 -5 disc. Disc spaces are maintained. Vertebral body heights are preserved. Soft tissues are unremarkable. IMPRESSION: No acute postraumatic findings. Electronically signed by: Darinel Nix MD 07/15/2023 05:54 AM CDT Due to temporary technical issues with the PACS/Fluency reporting system, reports are being signed by the in house radiologists without review as a courtesy to insure prompt reporting. The interpreting radiologist is fully responsible for the content of the report.
== END ==
LOC: ER 03:12
DX: G44.209 Tension-type headache, unspecified, not intractable (principal); F14.10 Cocaine abuse, uncomplicated
CPT/HCPCS: 36415; 70450; 71045; 72125; 80048; 80076; 80307; 81001; 83605; 83735; 83880; 84145; 84439; 84443; 84484; 85025; 85610; 86140; 87040; 93005; 99284; J0696; J2405; J3360; J7030; J7040

== ENCOUNTER → 2023-07-17 | Emergency (ER) | payer SELFPAY ==
[~2023-07-17] MED LIST changes: -CEFTRIAXONE 2000 MG/VIAL ONE; +METOCLOPRAMIDE 10 MG/2mL INJ ONE; -NA CHLORIDE 0.9% 100 ML ONE; -NA CHLORIDE 0.9% 500 ML ONE; -ONDANSETRON 4 MG/2 ML VIAL ONE; -VANCOMYCIN 1 GM/VIAL ONE; -VANCOMYCIN 500 MG/VIAL ONE
--- NOTE | 2023-07-17 05:36 | ER ---
Nurse's Notes [facility] Name: Kali Lopez Age: 37 yrs Sex: Male : 1985 Arrival Date: 07/17/2023 Time: 03:08 Bed 11 Private MD: Diagnosis: Episodic tension-type headache Presentation: 07/16 03:29 Chief complaint: Patient states: headache pain of 10,onset Tuesday. pf1 03:29 Coronavirus screen: Vaccine status: Patient reports receiving the 2nd dose of the covid pf1 vaccine. Client denies travel out of the [place] in the last 14 days. Client presents with at least one sign or symptom that may indicate coronavirus-19. Ebola Screen: Patient negative for fever greater than or equal to 101.5 degrees Fahrenheit, and additional compatible Ebola Virus Disease symptoms. Initial Sepsis Screen: Does the patient meet any 2 criteria? HR > 90 bpm. No. Patient's initial sepsis screen is negative. Does the patient have a suspected source of infection? No. Patient's initial sepsis screen is negative. Risk Assessment: Do you want to hurt yourself or someone else? Patient reports no desire to harm self or others. Onset of symptoms was July 10, 2023. 03:29 Method Of Arrival: Ambulatory pf1 03:29 Acuity: SALO 3 pf1 Triage Assessment: 03:29 Headache History: The patient has had previous headaches and this one is similar to pf1 previous episodes. 03:29 General: Appears in no apparent distress. uncomfortable, well groomed, well developed, pf1 Behavior is calm, cooperative, appropriate for age, quiet. Pain: Complains of pain in head Pain currently is 10 out of 10 on a pain scale. Pain began 7 days. Neuro: Level of Consciousness is awake, alert, obeys commands, Oriented to person, place, time, situation, Reports headache. 03:30 Pain: Also complains of no other associated symptoms. pf1 Historical: - Allergies: 03:44 Benadryl; pf1 - PMHx: 03:44 High Cholesterol; Hypertension; Migraine; pf1 - PSHx: 03:44 neck; right knee; pf1 - Immunization history:: Adult Immunizations not up to date, Client reports receiving the 2nd dose of the Covid vaccine, Last tetanus immunization: > 10 years ago Flu vaccine is not up to date. - Social history:: Smoking status: Patient reports the use of cigarette tobacco products, smokes one pack cigarettes per day. Patient uses alcohol, occasionally. street drugs, cocaine. - Family history:: not pertinent. Screenin:30 [facility] ED Fall Risk Assessment (Adult) History of falling in the last 3 months, pf1 including since admission No falls in past 3 months (0 pts) Confusion or Disorientation No (0 pts) Intoxicated or Sedated No (0 pts) Impaired Gait No (0 pts) Mobility Assist Device Used No (0 pt) Altered Elimination No (0 pt) Score/Fall Risk Level 0 - 2 = Low Risk Oriented to surroundings, Maintained a safe environment, Educated pt \T\ family on fall prevention, incl call for assistance when getting out of bed, Assessed \T\ reinforced patient's understanding of fall precautions, Provided non-skid footwear, Hourly rounding (assess needs \T\ fall precautionary measures) done, Used ambulatory aids as needed (educated on \T\ assisted with), Used gait belt as appropriate. Abuse screen: Denies threats or abuse. Nutritional screening: No deficits noted. Tuberculosis screening: No symptoms or risk factors identified. Assessment: 03:30 General: Appears in no apparent distress. uncomfortable, well groomed, well developed, pf1 Behavior is calm, cooperative, appropriate for age, quiet. 03:30 Pain: Complains of pain in head Pain currently is 10 out of 10 on a pain scale. Pain pf1 began 1 week. Neuro: Reports headache. Cardiovascular: No deficits noted. Capillary refill < 3 seconds Patient's skin is warm and dry. Respiratory: No deficits noted. Airway is patent Respiratory effort is even, unlabored, Respiratory pattern is regular, symmetrical. GI: No deficits noted. No signs and/or symptoms were reported involving the gastrointestinal system. : No deficits noted. No signs and/or symptoms were reported regarding the genitourinary system. EENT: No deficits noted. No signs and/or symptoms were reported regarding the EENT system. Derm: No deficits noted. No signs and/or symptoms reported regarding the dermatologic system. Musculoskeletal: No deficits noted. No signs and/or symptoms reported regarding the musculoskeletal system. 04:30 Reassessment: Patient appears in no apparent distress at this time. Patient and/or pf1 family updated on plan of care and expected duration. Pain level reassessed. Patient is alert, oriented x 3, equal unlabored respirations, skin warm/dry/pink. Patient states symptoms have improved. 05:30 Reassessment: Patient appears in no apparent distress at this time. Patient and/or pf1 family updated on plan of care and expected duration. Pain level reassessed. Patient is alert, oriented x 3, equal unlabored respirations, skin warm/dry/pink. Patient states feeling better. Patient states symptoms have improved. Vital Signs: 03:29 BP 143 / 96; Pulse 107; Resp 18; Temp 98.1; Pulse Ox 98% on R/A; Weight 72.57 kg; pf1 Height 5 ft. 7 in. ; Pain 10/10; 04:30 BP 138 / 89; Pulse 92; Resp 16; Pulse Ox 100% on R/A; pf1 05:30 BP 131 / 79; Pulse 89; Resp 16; Temp 98; Pulse Ox 99% ; Pain 0/10; pf1 03:29 Body Mass Index 25.06 (72.57 kg, 170.18 cm) pf1 03:29 Pain Scale: Adult pf1 05:30 Pain Scale: Adult pf1 Daphne Coma Score: 05:32 Eye Response: spontaneous(4). Motor Response: obeys commands(6). Verbal Response: sp4 oriented(5). Total: 15. ED Course: 03:09 Patient arrived in ED. mr 03:29 Arm band placed on right wrist. pf1 03:30 Door closed. Noise minimized. Lights dimmed. Warm blanket given. pf1 03:30 Patient has correct armband on for positive identification. Placed in gown. Bed in low pf1 position. Call light in reach. Side rails up X 1. 03:36 Scott Webb MD is Attending Physician. sp4 03:44 Triage completed. pf1 03:45 Inserted saline lock: 18 gauge in right antecubital area, using aseptic technique. kmf 05:35 Elver Napier MD is Referral Physician. sp4 05:44 No provider procedures requiring assistance completed. IV discontinued, intact, pf1 bleeding controlled, No redness/swelling at site. Pressure dressing applied. 05:48 Provided Education on: follow up and pain medications. pf1 Administered Medications: 04:00 Drug: Ketorolac IVP 30 mg IVP once Route: IVP; Site: right antecubital; pf1 05:00 Follow up: Response: No adverse reaction; Marked relief of symptoms; Pain is decreased pf1 04:00 Drug: metoCLOPramide IVP 10 mg IVP once; over 1 to 2 minutes Route: IVP; Site: right pf1 antecubital; 05:00 Follow up: Response: No adverse reaction; Marked relief of symptoms pf1 04:00 Drug: Diazepam IVP 5 mg IVP once Route: IVP; Site: right antecubital; pf1 05:00 Follow up: Response: No adverse reaction; Marked relief of symptoms; Pain is decreased; pf1 RASS: Alert and Calm (0) 04:00 Drug: morphine IVP or IV 4 mg IVP once over 4 mins Route: IVP; Infused Over: 4 mins; pf1 Site: right antecubital; 05:00 Follow up: Response: No adverse reaction; Marked relief of symptoms; Pain is decreased; pf1 RASS: Alert and Calm (0) 04:00 Drug: NS 0.9% IV 1000 ml IV at 1 bolus Per protocol; 1000 mL bolus Route: IV; Rate: 1 pf1 bolus; Site: right antecubital; 05:00 Follow up: Response: No adverse reaction; Marked relief of symptoms; IV Status: pf1 Completed infusion; IV Intake: 1000ml Medication: 05:49 VIS not applicable for this client. pf1 Intake: 05:00 IV: 1000ml; Total: 1000ml. pf1 Outcome: 05:35 Discharge ordered by . sp4 05:48 Discharged to home ambulatory, with family, pf1 05:48 Condition: improved 05:48 Discharge instructions given to patient, Instructed on discharge instructions, follow up and referral plans. Demonstrated understanding of instructions, follow-up care, 05:49 Patient left the ED. pf1 Signatures: Rupa Amaya Reg Reg mr Finley, Pamala, RN RN pf1 Scott Webb MD MD sp4 Staci Alvares [facility]
--- NOTE | 2023-07-17 05:36 | EDPHYS ---
Physician Documentation [facility] Name: Kali Lopez Age: 37 yrs Sex: Male : 1985 Arrival Date: 07/17/2023 Time: 03:08 Bed 11 Private MD: ED Physician Scott Webb HPI: 07/16 05:32 This 37 yrs old Male presents to ER via Ambulatory with complaints of Headache.sp4 05:32 Patient is well-known to me secondary to prior history of prior presentations for sp4 headache. Patient presents with moderate to severe headache on no provocation, sudden onset this evening . Patient was here 07/15/2023 for moderate to severe headache and had full extensive workup including CT head which was unremarkable. Patient was prescribed Naprosyn and Fioricet on prior visits. . Historical: - Allergies: 03:44 Benadryl; pf1 - PMHx: 03:44 High Cholesterol; Hypertension; Migraine; pf1 - PSHx: 03:44 neck; right knee; pf1 - Immunization history:: Adult Immunizations not up to date, Client reports receiving the 2nd dose of the Covid vaccine, Last tetanus immunization: > 10 years ago Flu vaccine is not up to date. - Social history:: Smoking status: Patient reports the use of cigarette tobacco products, smokes one pack cigarettes per day. Patient uses alcohol, occasionally. street drugs, cocaine. - Family history:: not pertinent. ROS: 05:32 Constitutional: Negative for fever, chills, and weight loss, positive acute headache sp4 05:32 All other systems are negative, Exam: 05:32 Constitutional: This is a well developed, well nourished patient who is awake, alert, sp4 and in no acute distress. Head/Face: Normocephalic, atraumatic. Eyes: Pupils equal round and reactive to light, extra-ocular motions intact. Lids and lashes normal. Conjunctiva and sclera are not injected. Cornea within normal limits. Periorbital areas with no swelling, redness, or edema. ENT: Nares patent. No nasal discharge, no septal abnormalities noted. Tympanic membranes are normal and external auditory canals are clear. Oropharynx with no redness, swelling, or masses, exudates, or evidence of obstruction, uvula midline. Mucous membranes moist. Neck: Trachea midline, no thyromegaly or masses palpated, and no cervical lymphadenopathy. Supple, full range of motion without nuchal rigidity, or vertebral point tenderness. Chest/axilla: Normal chest wall appearance and motion. Nontender with no deformity. No lesions are appreciated. Cardiovascular: Regular rate and rhythm with a normal S1 and S2. No gallops, murmurs, or rubs. Normal PMI, no JVD. No pulse deficits. Respiratory: Lungs have equal breath sounds bilaterally, clear to auscultation and percussion. No rales, rhonchi or wheezes noted. No increased work of breathing, no retractions or nasal flaring. Abdomen/GI: Soft, with normal bowel sounds. No distension or tympany. No guarding or rebound. No evidence of tenderness throughout. Back: No spinal tenderness. No costovertebral tenderness. Skin: Warm, dry with normal turgor. Normal color with no rashes, no lesions, and no evidence of cellulitis. MS/ Extremity: Pulses equal, no cyanosis. Neurovascular intact. Full, normal range of motion. Neuro: Awake and alert, GCS 15, oriented to person, place, time, and situation. Cranial nerves II-XII grossly intact. Motor strength 5/5 in all extremities. Sensory grossly intact. Psych: Awake, alert, with orientation to person, place and time. Behavior -upset and irritable mood Vital Signs: 03:29 BP 143 / 96; Pulse 107; Resp 18; Temp 98.1; Pulse Ox 98% on R/A; Weight 72.57 kg; pf1 Height 5 ft. 7 in. ; Pain 10/10; 04:30 BP 138 / 89; Pulse 92; Resp 16; Pulse Ox 100% on R/A; pf1 05:30 BP 131 / 79; Pulse 89; Resp 16; Temp 98; Pulse Ox 99% ; Pain 0/10; pf1 03:29 Body Mass Index 25.06 (72.57 kg, 170.18 cm) pf1 03:29 Pain Scale: Adult pf1 05:30 Pain Scale: Adult pf1 [place] Coma Score: 05:32 Eye Response: spontaneous(4). Motor Response: obeys commands(6). Verbal Response: sp4 oriented(5). Total: 15. MDM: 03:43 Patient medically screened. sp4 05:32 Differential diagnosis: hypertensive headache, migraine, sinusitis, vasomotor headache. sp4 Data reviewed: vital signs, nurses notes, old medical records. ED course: Patient is stable for discharge home after headache control. Advise follow-up with neurology Dr. Napier for further investigation of headaches. 07/16 03:37 Order name: Saline Lock; Complete Time: 04:03 sp4 Administered Medications: 04:00 Drug: Ketorolac IVP 30 mg IVP once Route: IVP; Site: right antecubital; pf1 05:00 Follow up: Response: No adverse reaction; Marked relief of symptoms; Pain is decreased pf1 04:00 Drug: metoCLOPramide IVP 10 mg IVP once; over 1 to 2 minutes Route: IVP; Site: right pf1 antecubital; 05:00 Follow up: Response: No adverse reaction; Marked relief of symptoms pf1 04:00 Drug: Diazepam IVP 5 mg IVP once Route: IVP; Site: right antecubital; pf1 05:00 Follow up: Response: No adverse reaction; Marked relief of symptoms; Pain is decreased; pf1 RASS: Alert and Calm (0) 04:00 Drug: morphine IVP or IV 4 mg IVP once over 4 mins Route: IVP; Infused Over: 4 mins; pf1 Site: right antecubital; 05:00 Follow up: Response: No adverse reaction; Marked relief of symptoms; Pain is decreased; pf1 RASS: Alert and Calm (0) 04:00 Drug: NS 0.9% IV 1000 ml IV at 1 bolus Per protocol; 1000 mL bolus Route: IV; Rate: 1 pf1 bolus; Site: right antecubital; 05:00 Follow up: Response: No adverse reaction; Marked relief of symptoms; IV Status: pf1 Completed infusion; IV Intake: 1000ml Disposition Summary: 07/17/23 05:35 Discharge Ordered Notes: Location: Home sp4 Problem: new sp4 Symptoms: have improved sp4 Condition: Stable sp4 Diagnosis - Episodic tension-type headache sp4 Followup: sp4 - With: Elver Napier MD - When: 7 - 10 days - Reason: Recheck today's complaints Discharge Instructions: - Discharge Summary Sheet sp4 - General Headache Without Cause sp4 Forms: - Patient Portal Instructions sp4 Signatures: Annika Acevedo RN RN pf1 Scott Webb, MD sp4
[2023-07-17 06:08] VITALS: BP 131/79; TEMP 98; O2SAT 99
== END ==
LOC: ER 03:08
DX: G44.219 Episodic tension-type headache, not intractable (principal)
CPT/HCPCS: 96361; 96374; 96375; 99284; J2765; J3360; J7030

== ENCOUNTER → 2023-07-19 | Emergency (ER) | payer SELFPAY ==
[~2023-07-19] MED LIST changes: -DIAZEPAM 10 MG/2 ML INJ SYRINGE ONE; -KETOROLAC 30 MG/ML INJ ONE; -METOCLOPRAMIDE 10 MG/2mL INJ ONE; -NA CHLORIDE 0.9% 1,000 ML ONE; +ONDANSETRON 4 MG (ODT) TAB ONE
--- NOTE | 2023-07-19 23:37 | ER ---
Nurse's Notes [facility] Name: Kali Lopez Age: 37 yrs Sex: Male : 1985 Arrival Date: 07/19/2023 Time: 22:17 Bed 13 Private MD: Diagnosis: Migraine without aura, not intractable Presentation: 07/18 22:45 Chief complaint: Patient states: Migraine pain of 10,onset 07/09/23. Coronavirus screen: pf1 Client denies travel out of the [place] in the last 14 days. At this time, the client does not indicate any symptoms associated with coronavirus-19. Ebola Screen: Patient negative for fever greater than or equal to 101.5 degrees Fahrenheit, and additional compatible Ebola Virus Disease symptoms. Initial Sepsis Screen: Does the patient meet any 2 criteria? HR > 90 bpm. No. Patient's initial sepsis screen is negative. Does the patient have a suspected source of infection? No. Patient's initial sepsis screen is negative. Risk Assessment: Do you want to hurt yourself or someone else? Patient reports no desire to harm self or others. Onset of symptoms was July 09, 2023. 22:45 Method Of Arrival: Ambulatory pf1 22:45 Acuity: SALO 3 pf1 Historical: - Allergies: 22:51 Benadryl; pf1 - PMHx: 22:51 High Cholesterol; Hypertension; Migraine; pf1 - PSHx: 22:51 neck; right knee; pf1 - Immunization history:: Adult Immunizations up to date, Client reports receiving the 2nd dose of the Covid vaccine, Last tetanus immunization: > 10 years ago Flu vaccine is not up to date. - Social history:: Smoking status: Patient reports the use of cigarette tobacco products, smokes one pack cigarettes per day. Patient uses alcohol, on a daily basis. street drugs, cocaine. Screenin:36 [facility] ED Fall Risk Assessment (Adult) History of falling in the last 3 months, tm6 including since admission No falls in past 3 months (0 pts) Confusion or Disorientation No (0 pts) Intoxicated or Sedated No (0 pts) Impaired Gait No (0 pts) Mobility Assist Device Used No (0 pt) Altered Elimination No (0 pt) Score/Fall Risk Level 0 - 2 = Low Risk Oriented to surroundings, Maintained a safe environment. Abuse screen: Denies threats or abuse. Denies injuries from another. Nutritional screening: No deficits noted. Tuberculosis screening: No symptoms or risk factors identified. Assessment: 23:35 General: Appears uncomfortable, Behavior is calm, cooperative. Pain: Complains of pain tm6 in face Pain currently is 10 out of 10 on a pain scale. Quality of pain is described as aching, Pain began ten days ago. Neuro: Level of Consciousness is awake, alert, obeys commands, Oriented to person, place, time, situation, Reports headache since ten days ago. Cardiovascular: Capillary refill < 3 seconds Patient's skin is warm and dry. Respiratory: Airway is patent Respiratory effort is even, unlabored, Respiratory pattern is regular, symmetrical. GI: Abdomen is flat, non-distended. : No signs and/or symptoms were reported regarding the genitourinary system. EENT: No signs and/or symptoms were reported regarding the EENT system. Derm: No signs and/or symptoms reported regarding the dermatologic system. Musculoskeletal: No signs and/or symptoms reported regarding the musculoskeletal system. 23:53 Reassessment: Patient and/or family updated on plan of care and expected duration. Pain tm6 level reassessed. Patient is alert, oriented x 3, equal unlabored respirations, skin warm/dry/pink. Vital Signs: 22:45 BP 151 / 93; Pulse 96; Resp 18; Temp 98.7(TE); Pulse Ox 98% ; Weight 72.57 kg; Height 5 pf1 ft. 7 in. ; Pain 10/10; 23:35 BP 130 / 75; Pulse 92; Pulse Ox 97% on R/A; Pain 10/10; tm6 23:52 BP 141 / 70; Pulse 101; Resp 18; Temp 98.9(TE); Pulse Ox 99% on R/A; Pain 9/10; tm6 22:45 Body Mass Index 25.06 (72.57 kg, 170.18 cm) pf1 22:45 Pain Scale: Adult pf1 23:35 Pain Scale: Adult tm6 23:52 Pain Scale: Adult tm6 ED Course: 22:20 Patient arrived in ED. im 22:24 Summer Lundberg FNP-C [facility]. kb 22:24 Scott Webb MD is Attending Physician. kb 22:51 Triage completed. pf1 23:24 Eze Polanco, RN is Primary Nurse. tm6 23:36 Patient has correct armband on for positive identification. Placed in gown. Bed in low tm6 position. Call light in reach. Side rails up X2. Provided Education on: plan of care. Client placed on continuous cardiac and pulse oximetry monitoring. NIBP monitoring applied. Pulse ox on. NIBP on. Door closed. Noise minimized. Lights dimmed. Warm blanket given. 23:36 Arm band placed on. tm6 23:36 No provider procedures requiring assistance completed. tm6 23:53 Patient did not have IV access during this emergency room visit. tm6 Administered Medications: 23:34 Drug: Ondansetron PO 4 mg PO once Route: PO; tm6 23:34 Drug: morphine IM 4 mg IM once Route: IM; Site: right deltoid; tm6 Medication: 23:36 VIS not applicable for this client. tm6 Outcome: 23:37 Discharge ordered by . kb 23:53 Discharged to home ambulatory, with family, tm6 23:53 Condition: stable 23:53 Discharge instructions given to patient, family, Instructed on discharge instructions, follow up and referral plans. Demonstrated understanding of instructions, follow-up care, 23:54 Patient left the ED. tm6 Signatures: Summer Lundberg, SK[employer]-C [employer]S AND CONTRACTS ASSISTANT-Annika Ayala, RN RN pf1 Melissa Erazo Tawney, RN RN tm6
--- NOTE | 2023-07-19 23:37 | EDPHYS ---
Physician Documentation [facility] Name: Kali Lopez Age: 37 yrs Sex: Male : 1985 Arrival Date: 07/19/2023 Time: 22:17 Bed 13 Private MD: ED Physician Scott Webb HPI: 07/18 23:36 This 37 yrs old Male presents to ER via Ambulatory with complaints of Migraine.kb 23:36 Patient is a 37-year-old male who presents for migraine that started 10 days ago. kb States he has been seen here multiple times and [place] [facility] multiple times for this headache. States the Valium and morphine but is gotten in the past has worked within the migraine and is upcoming back the next day. Denies fever. Reports photophobia and nausea. States he was told to follow-up with neurology but he does not have the money to do that.. Historical: - Allergies: 22:51 Benadryl; pf1 - PMHx: 22:51 High Cholesterol; Hypertension; Migraine; pf1 - PSHx: 22:51 neck; right knee; pf1 - Immunization history:: Adult Immunizations up to date, Client reports receiving the 2nd dose of the Covid vaccine, Last tetanus immunization: > 10 years ago Flu vaccine is not up to date. - Social history:: Smoking status: Patient reports the use of cigarette tobacco products, smokes one pack cigarettes per day. Patient uses alcohol, on a daily basis. street drugs, cocaine. ROS: 23:35 Constitutional: As per HPI kb Exam: 23:35 Constitutional: This is a well developed, well nourished patient who is awake, alert, kb and in no acute distress. Head/Face: Normocephalic, atraumatic. Eyes: Pupils equal round and reactive to light, extra-ocular motions intact. Lids and lashes normal. Conjunctiva and sclera are non-icteric and not injected. Cornea within normal limits. Periorbital areas with no swelling, redness, or edema. ENT: Moist Mucous membranes Cardiovascular: Regular rate Respiratory: Respirations even and unlabored. No increased work of breathing. Talking in full sentences Skin: Warm, dry with normal turgor. Normal color. MS/ Extremity: Pulses equal, no cyanosis. Neurovascular intact. Full, normal range of motion. Neuro: Awake and alert, GCS 15, oriented to person, place, time, and situation. Moves all extremities. Normal gait. Vital Signs: 22:45 BP 151 / 93; Pulse 96; Resp 18; Temp 98.7(TE); Pulse Ox 98% ; Weight 72.57 kg; Height 5 pf1 ft. 7 in. ; Pain 10/10; 23:35 BP 130 / 75; Pulse 92; Pulse Ox 97% on R/A; Pain 10/10; tm6 23:52 BP 141 / 70; Pulse 101; Resp 18; Temp 98.9(TE); Pulse Ox 99% on R/A; Pain 9/10; tm6 22:45 Body Mass Index 25.06 (72.57 kg, 170.18 cm) pf1 22:45 Pain Scale: Adult pf1 23:35 Pain Scale: Adult tm6 23:52 Pain Scale: Adult tm6 MDM: 22:25 Patient medically screened. kb 23:35 Differential diagnosis: Migraine, tension headache, muscle strain. Data reviewed: vital kb signs, nurses notes. Test considered but Not performed: CT: CT scan of the head considered but patient has had 2 CTs over the last week here and reports he had CT angio at [facility] that were all negative.. Counseling: I had a detailed discussion with the patient and/or guardian regarding the historical points, exam findings, and any diagnostic results supporting the discharge/admit diagnosis, the need for outpatient follow up, a family practitioner, a neurologist, to return to the emergency department if symptoms worsen or persist or if there are any questions or concerns that arise at home. Administered Medications: 23:34 Drug: Ondansetron PO 4 mg PO once Route: PO; tm6 23:34 Drug: morphine IM 4 mg IM once Route: IM; Site: right deltoid; tm6 Disposition Summary: 07/19/23 23:37 Discharge Ordered Notes: Location: Home kb Condition: Stable kb Diagnosis - Migraine without aura, not intractable kb Followup: kb - With: Emergency Department - When: As needed - Reason: Worsening of condition Followup: kb - With: Private Physician - When: 2 - 3 days - Reason: Recheck today's complaints, Continuance of care, Re-evaluation by your physician Discharge Instructions: - Discharge Summary Sheet kb - Migraine Headache, [id number] kb Forms: - Medication Reconciliation Form kb - Thank You Letter kb - Antibiotic Education kb - Prescription Opioid Use kb - Patient Portal Instructions kb - Leadership Thank You Letter kb - Work release form tm6 Signatures: Summer Lundberg FNP-C FNP-Ckb Finley, Pamala RN RN pf1 Eze Polanco RN RN tm6
[2023-07-20 01:27] VITALS: BP 141/70; TEMP 98.9; O2SAT 99
== END ==
LOC: ER 22:17
DX: G43.009 Migraine without aura, not intractable, without status migrainosus (principal)
CPT/HCPCS: Q0162

== ENCOUNTER → 2023-07-23 | Emergency (ER) | payer SELFPAY ==
[~2023-07-23] MED LIST changes: +HYDROCODONE/APAP 10/325 TAB ONE; -MORPHINE 4 MG/ML SYR ONE; -ONDANSETRON 4 MG (ODT) TAB ONE
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
[2023-07-24 02:40] VITALS: BP 128/87; TEMP 98.2; O2SAT 99
--- NOTE | 2023-07-25 21:26 | RAD REPORT ---
EXAM DESCRIPTION: XR Left Ribs, 2 Views CLINICAL HISTORY: PAIN TECHNIQUE: Frontal and oblique views of the left ribs. COMPARISON: Chest x-ray dated 07/15/2023 FINDINGS: Lungs: Unremarkable as visualized. No consolidation. Pleural space: Unremarkable. No pneumothorax. Bones/joints: Unremarkable. No acute fracture. IMPRESSION: No acute injury. Electronically signed by: Sergio Gomez MD 07/24/2023 01:25 AM CDT Due to temporary technical issues with the PACS/Fluency reporting system, reports are being signed by the in house radiologists without review as a courtesy to insure prompt reporting. The interpreting radiologist is fully responsible for the content of the report.
== END ==
LOC: ER 23:24
DX: R07.89 Other chest pain (principal)
CPT/HCPCS: 99283

== ENCOUNTER 2024-01-06 23:22 | Emergency (ER) | payer SELFPAY ==
[2024-01-06] MEDS ORDERED: KETOROLAC 30 MG/ML INJ ONE (23:52)
[2024-01-06] MEDS ORDERED: CYCLOBENZAPRINE 10 MG TAB ONE (23:52)
[2024-01-06] MEDS ORDERED: dexAMETHasone 10 MG/ML VIAL ONE (23:52)
--- NOTE | 2024-01-07 00:47 | ER ---
Nurse's Notes [facility] Name: Kali Lopez Age: 38 yrs Sex: Male : 1985 Arrival Date: 01/06/2024 Time: 23:22 Bed 14 Private MD: Diagnosis: Cervicalgia Presentation: 01/05 23:42 Chief complaint: Patient states: Had neck surgery 1.5 years ago, about 5-10 minutes ago vc1 my neck got stiff. Coronavirus screen: Client denies travel out of the [place] in the last 14 days. At this time, the client does not indicate any symptoms associated with coronavirus-19. Ebola Screen: Patient negative for fever greater than or equal to 101.5 degrees Fahrenheit, and additional compatible Ebola Virus Disease symptoms Patient denies exposure to infectious person. Patient denies travel to an Ebola-affected area in the 21 days before illness onset. No symptoms or risks identified at this time. Initial Sepsis Screen: Does the patient meet any 2 criteria? No. Patient's initial sepsis screen is negative. Does the patient have a suspected source of infection? No. Patient's initial sepsis screen is negative. Risk Assessment: Do you want to hurt yourself or someone else? Patient reports no desire to harm self or others. Onset of symptoms was January 06, 2024 at 23:15. 23:42 Method Of Arrival: Ambulatory vc1 23:42 Acuity: SALO 4 vc1 Triage Assessment: 23:45 General: Appears in no apparent distress. slender, Behavior is calm, cooperative, vc1 appropriate for age. Pain: Complains of pain in base of the skull Pain currently is 9 out of 10 on a pain scale. EENT: No deficits noted. No signs and/or symptoms were reported regarding the EENT system. Neuro: Level of Consciousness is awake, alert, obeys commands, Oriented to person, place, time, situation, Appropriate for age. Cardiovascular: Heart tones S1 S2 Capillary refill < 3 seconds Patient's skin is warm and dry. Respiratory: Airway is patent Respiratory effort is even, unlabored, Respiratory pattern is regular, symmetrical, Breath sounds are clear bilaterally. GI: No deficits noted. No signs and/or symptoms were reported involving the gastrointestinal system. : No deficits noted. No signs and/or symptoms were reported regarding the genitourinary system. Derm: Skin is intact, is healthy with good turgor, Skin is dry, Skin is normal, Skin temperature is warm. Musculoskeletal: Circulation, motion, and sensation intact. Range of motion: intact in all extremities, Reports pain in base of the skull. Historical: - Allergies: 23:44 Benadryl; vc1 - PMHx: 23:44 High Cholesterol; Hypertension; Migraine; vc1 - PSHx: 23:44 neck; right knee; vc1 - Immunization history:: Client reports receiving the 2nd dose of the Covid vaccine. - Infectious Disease History:: Denies. - Social history:: Smoking status: Patient reports the use of cigarette tobacco products, smokes one pack cigarettes per day. Patient reports use of chewing tobacco. Reported history of juuling and/or vaping. Screenin:45 [facility] ED Fall Risk Assessment (Adult) History of falling in the last 3 months, vc1 including since admission No falls in past 3 months (0 pts) Confusion or Disorientation No (0 pts) Intoxicated or Sedated No (0 pts) Impaired Gait No (0 pts) Mobility Assist Device Used No (0 pt) Altered Elimination No (0 pt) Score/Fall Risk Level 0 - 2 = Low Risk Oriented to surroundings, Maintained a safe environment, Educated pt \T\ family on fall prevention, incl call for assistance when getting out of bed. Abuse screen: Denies threats or abuse. Nutritional screening: No deficits noted. Tuberculosis screening: No symptoms or risk factors identified. Assessment: 01/06 01:09 Reassessment: Patient and/or family updated on plan of care and expected duration. Pain vc1 level reassessed. Patient is alert, oriented x 3, equal unlabored respirations, skin warm/dry/pink. Patient states feeling better. Patient states symptoms have improved. Neuro: Level of Consciousness is awake, alert, obeys commands, Oriented to person, place, time, situation, Appropriate for age. Vital Signs: 01/05 23:42 BP 147 / 106; Pulse 86; Resp 14; Temp 98.6; Pulse Ox 96% ; Weight 77.11 kg; Height 5 vc1 ft. 7 in. ; Pain 9/10; 01/06 01:07 BP 140 / 94; Pulse 84; Resp 14; Pulse Ox 97% ; vc1 01/05 23:42 Body Mass Index 26.63 (77.11 kg, 170.18 cm) vc1 01/05 23:42 Pain Scale: Adult vc1 ED Course: 01/05 23:25 Patient arrived in ED. [id number] 23:27 Ellie Beltran PA-C is PHCP. sb4 23:27 Scott Webb MD is Attending Physician. sb4 23:41 Ruby Echevarria, ELLEN is Primary Nurse. vc1 23:44 Triage completed. vc1 23:45 Arm band placed on right wrist. vc1 23:47 Patient has correct armband on for positive identification. Bed in low position. Call vc1 light in reach. Pulse ox on. NIBP on. 23:55 CT C Spine In Process Unspecified. EDMS 01/06 01:08 No provider procedures requiring assistance completed. Patient did not have IV access vc1 during this emergency room visit. 01:09 Provided Education on: follow up with criminal research specialist for nodule. vc1 Administered Medications: 00:02 Drug: Cyclobenzaprine PO 10 mg PO once Route: PO; vc1 00:53 Follow up: Response: No adverse reaction; Marked relief of symptoms; Pain is decreased vc1 00:02 Drug: Ketorolac IM 30 mg IM once Route: IM; Site: right ventrogluteal; vc1 00:53 Follow up: Response: No adverse reaction; Marked relief of symptoms; Pain is decreased vc1 00:02 Drug: Dexamethasone IM 10 mg IM once Route: IM; Site: Ventrogluteal RIGHT; vc1 00:53 Follow up: Response: No adverse reaction; Marked relief of symptoms; Pain is decreased vc1 Medication: 01/05 23:45 VIS not applicable for this client. vc1 Outcome: 01/06 00:46 Discharge ordered by . sb4 01:08 Discharged to home ambulatory, with family, vc1 01:08 Condition: good 01:08 Discharge instructions given to patient, Instructed on discharge instructions, follow up and referral plans. medication usage, Demonstrated understanding of instructions, follow-up care, medications, Prescriptions given X 3, 01:09 Patient left the ED. vc1 Signatures: Dispatcher [employer] EDMS Gricelda Ballesteros [email or web address] Ruby Echevarria, ELLEN RN vc1 Ellie Beltran PA-C PA-C sb4 Corrections: (The following items were deleted from the chart) 01:09 01:08 Discharge instructions given to patient, Instructed on discharge instructions, vc1 follow up and referral plans. medication usage, Demonstrated understanding of instructions, follow-up care, medications, Prescriptions given X 2, vc1
--- NOTE | 2024-01-07 00:47 | EDPHYS ---
Physician Documentation [facility] Name: Kali Lopez Age: 38 yrs Sex: Male : 1985 Arrival Date: 01/06/2024 Time: 23:22 Bed 14 Private MD: ED Physician Scott Webb HPI: 01/05 23:35 This 38 yrs old Male presents to ER via Unassigned with complaints of Neck sb4 pain. 23:36 The patient or guardian complains of decreased range of motion, pain, that is acute. sb4 The symptoms are located diffusely. Onset: The symptoms/episode began/occurred just prior to arrival. Context: The problem was sustained at home, The neck injury/problem resulted from from unknown cause. Associated signs and symptoms: The patient has no apparent associated signs or symptoms, Pertinent negatives: fever, headache, nausea, numbness, tingling, vomiting, weakness, The patient denies any alcohol use. No neurological symptoms were experienced by the patient prior to arrival in the emergency department. The pain does not radiate. The patient has not experienced similar symptoms in the past. The patient has been recently seen by a physician:. Historical: - Allergies: 23:44 Benadryl; vc1 - PMHx: 23:44 High Cholesterol; Hypertension; Migraine; vc1 - PSHx: 23:44 neck; right knee; vc1 - Immunization history:: Client reports receiving the 2nd dose of the Covid vaccine. - Infectious Disease History:: Denies. - Social history:: Smoking status: Patient reports the use of cigarette tobacco products, smokes one pack cigarettes per day. Patient reports use of chewing tobacco. Reported history of juuling and/or vaping. ROS: 23:38 Constitutional: Negative for fever, chills, and weight loss, sb4 23:38 Neck: Positive for pain with movement, pain at rest, 23:38 All other systems are negative, Exam: 23:38 Head/Face: Normocephalic, atraumatic. Eyes: Extra-ocular motions intact. Periorbital sb4 areas with no swelling, redness, or edema. ENT: Mucous membranes moist. Cardiovascular: Regular rate and rhythm with a normal S1 and S2. Respiratory: Lungs have equal breath sounds bilaterally, clear to auscultation and percussion. No rales, rhonchi or wheezes noted. No increased work of breathing, no retractions or nasal flaring. 23:38 Constitutional: The patient appears alert, awake, uncomfortable, 23:38 Neck: ROM/movement: pain, with any movement, Meningeal signs: are not present, nuchal rigidity, is not appreciated, Vital Signs: 23:42 BP 147 / 106; Pulse 86; Resp 14; Temp 98.6; Pulse Ox 96% ; Weight 77.11 kg; Height 5 vc1 ft. 7 in. ; Pain 9/10; 01/06 01:07 BP 140 / 94; Pulse 84; Resp 14; Pulse Ox 97% ; vc1 01/05 23:42 Body Mass Index 26.63 (77.11 kg, 170.18 cm) vc1 01/05 23:42 Pain Scale: Adult vc1 MDM: 01/05 23:29 Patient medically screened. sb4 01/06 00:46 Data reviewed: vital signs, nurses notes, radiologic studies, and as a result, I will sb4 discharge patient. Counseling: I had a detailed discussion with the patient and/or guardian regarding the historical points, exam findings, and any diagnostic results supporting the discharge/admit diagnosis, radiology results, the need for outpatient follow up, for definitive care, to return to the emergency department if symptoms worsen or persist or if there are any questions or concerns that arise at home, smoking cessation. Special discussion: I discussed with the patient the need to follow-up with the PCP/specialist for the noted incidental finding on X-ray/CT scanning. 01/05 23:35 Order name: CT C Spine sb4 Administered Medications: 00:02 Drug: Cyclobenzaprine PO 10 mg PO once Route: PO; vc1 00:53 Follow up: Response: No adverse reaction; Marked relief of symptoms; Pain is decreased vc1 00:02 Drug: Ketorolac IM 30 mg IM once Route: IM; Site: right ventrogluteal; vc1 00:53 Follow up: Response: No adverse reaction; Marked relief of symptoms; Pain is decreased vc1 00:02 Drug: Dexamethasone IM 10 mg IM once Route: IM; Site: Ventrogluteal RIGHT; vc1 00:53 Follow up: Response: No adverse reaction; Marked relief of symptoms; Pain is decreased vc1 Disposition: 03:26 Co-signature as Attending Physician, Scott Webb MD I agree with the assessment sp4 and plan of care. I reviewed the patient's care provided by the Advanced Practice Provider and agree with the diagnosis and treatment plan. Disposition Summary: 01/07/24 00:46 Discharge Ordered Problem: new sb4 Symptoms: have improved sb4 Condition: Stable sb4 Diagnosis - Cervicalgia sb4 Followup: sb4 - With: Private Physician - When: 1 week - Reason: Recheck today's complaints, Re-evaluation by your physician Discharge Instructions: - Discharge Summary Sheet sb4 - Musculoskeletal Pain sb4 - Neck Exercises sb4 Forms: - Patient Portal Instructions sb4 - Leadership Thank You Letter sb4 Prescriptions: - Ibuprofen 600 mg Oral Tablet - take 1 tablet ORAL route every 6 hours As needed take with food; 30 tablet; sb4 Refills: 0, Product Selection Permitted - Cyclobenzaprine 10 mg Oral Tablet - take 1 tablet ORAL route every 8 hours As needed; 30 tablet; Refills: 0, sb4 Product Selection Permitted - Prednisone 20 mg Oral Tablet - take 2 tablets ORAL route once daily for 5 days; 10 tablet; Refills: 0, Product sb4 Selection Permitted Signatures: Dispatcher [employer] EDMS Ruby Echevarria, RN RN vc1 Ellie Beltran, PA-C PARafalC sb4 Scott Webb MD MD sp4 Corrections: (The following items were deleted from the chart) 01/05 23:35 23:35 C Spine Wo Con+CT.RAD.BRZ ordered. EDMS EDMS
[2024-01-07 01:26] VITALS: TEMP 98.6
[2024-01-07 01:27] VITALS: BP 140/94; O2SAT 97
--- NOTE | 2024-01-07 22:00 | RAD REPORT ---
EXAM DESCRIPTION: CT - C Spine Wo Con - 01/07/2024 7:11 am C Spine Wo Con CLINICAL HISTORY: Prior fusion;Pain COMPARISON: None Available TECHNIQUE: Contiguous axial images of the cervical spine were obtained without the administration of intravenous contrast followed by reconstruction images. This exam was performed according to our [facility] dose-optimization program, which includes automated exposure control, adjustment of the mA and/or kV according to patient size and/or use of iterative reconstruction technique. FINDINGS: There is no acute fracture or subluxation. Prevertebral soft tissues are within normal larios its. Patient is status post anterior cervical fusion at C4-C5. Mucoperiosteal thickening of the maxil kamryn sinuses compatible with chronic sinusitis changes. Noncalcified 2.7 mm pulmonary nodule within t he right upper lung, image 103. IMPRESSION: 1. No acute fracture or subluxation. 2. Noncalcified 2.7 mm pulmonary nodule within the right upper lung. Per Fleischner Society Guide lines, if patient is low risk for malignancy, no routine follow-up imaging is recommended. If patient is high risk for malignancy, a non-contrast Chest CT at 12 months is optional. If performed and the nodule is stable at 12 months, no further follow-up is recommended.These guidelines do not apply to i mmunocompromised patients and patients with cancer. Follow up in patients with significant comorbidit ies as clinically warranted. For lung cancer screening, adhere to Lung-RADS guidelines. Reference: Ra diology. 2017; 284(1):228-43. Electronically signed by: Asa Becker MD 01/07/2024 12:29 AM CDT Due to temporary technical issues with the PACS/Fluency reporting system, reports are being signed by the in house radiologists without review as a courtesy to insure prompt reporting. The interpreting radiologist is fully responsible for the content of the report.
== END 2024-01-07 01:09 | disposition home or self-care (01) ==
LOC: ER 23:22
DX: M54.2 Cervicalgia (principal)
CPT/HCPCS: 72125; 96372; 99284; J1100

== ENCOUNTER 2024-01-07 19:34 | Emergency (ER) | payer SELFPAY ==
--- NOTE | 2024-01-07 20:45 | ER ---
Nurse's Notes [facility] Name: Kali Lopez Age: 38 yrs Sex: Male : 1985 Arrival Date: 01/07/2024 Time: 19:34 Bed Waiting Private MD: Diagnosis: ED Course: 01/06 19:37 Patient arrived in ED. jj6 20:00 Miquel Garcia MD is Attending Physician. rn 20:10 Patient's name was called from ER lobby. No response. tm6 20:31 Patient's name was called from ER lobby. No response. tm6 20:44 Patient's name was called from ER lobby. No response. Unable to locate patient. Will tm6 disposition as left without being seen by a provider. Administered Medications: No medications were administered Outcome: 20:44 Patient left the ED. tm6 Signatures: Miquel Garcia MD MD rn Jeffries, Jennifer jj6 Eze Polanco RN RN tm6
--- NOTE | 2024-01-08 20:44 | EDPHYS ---
Physician Documentation [facility] Name: Kali Lopez Age: 38 yrs Sex: Male : 1985 Arrival Date: 01/07/2024 Time: 19:34 Bed Waiting Private MD: ED Physician Miquel Garcia Administered Medications: No medications were administered Disposition Summary: 01/07/24 20:44 Eloped Notes: Disposition: Before Triage tm6 Reason: unknown tm6 Signatures: Miquel Garcia MD MD rn [place]ade[place]Eze RN RN tm6 Corrections: (The following items were deleted from the chart) 01/06 21:26 20:00 Patient medically screened. rn rn
== END 2024-01-07 20:44 | disposition left against medical advice (07) ==
LOC: ER 19:34
DX: Z02.9 Encounter for administrative examinations, unspecified (principal)

== ENCOUNTER 2024-01-10 23:34 | Emergency (ER) | payer SELFPAY ==
--- NOTE | 2024-01-11 00:57 | EDPHYS ---
Physician Documentation [facility] Name: Kali Lopez Age: 38 yrs Sex: Male : 1985 Arrival Date: 01/10/2024 Time: 23:34 Bed 20 Private MD: ED Physician Scott Webb HPI: 01/09 23:44 This 38 yrs old Male presents to ER via Unassigned with complaints of Low Back sp4 Pain, Headache, NECK PAIN. 01/11 00:02 38-year-old male presents with acute neck pain and low back pain. sp4 Historical: - Allergies: 01/09 23:47 Benadryl; me1 - PMHx: 23:47 High Cholesterol; Hypertension; Migraine; me1 - PSHx: 23:47 neck; right knee; me1 - Immunization history:: Adult Immunizations. - Infectious Disease History:: Denies. - Social history:: Smoking status: Patient reports the use of cigarette tobacco products, smokes one pack cigarettes per day. - Family history:: not pertinent. ROS: 01/11 00:02 Constitutional: Negative for fever, chills, and weight loss, positive for neck pain and sp4 back pain All other systems are negative, Exam: 00:02 Constitutional: This is a well developed, well nourished patient who is awake, alert, sp4 and in no acute distress. Head/Face: Normocephalic, atraumatic. Eyes: Pupils equal round and reactive to light, extra-ocular motions intact. Lids and lashes normal. Conjunctiva and sclera are not injected. Cornea within normal limits. Periorbital areas with no swelling, redness, or edema. ENT: Nares patent. No nasal discharge, no septal abnormalities noted. Tympanic membranes are normal and external auditory canals are clear. Oropharynx with no redness, swelling, or masses, exudates, or evidence of obstruction, uvula midline. Mucous membranes moist. Neck: Trachea midline, no thyromegaly or masses palpated, and no cervical lymphadenopathy. Supple, full range of motion without nuchal rigidity, or vertebral point tenderness. Chest/axilla: Normal chest wall appearance and motion. Nontender with no deformity. No lesions are appreciated. Cardiovascular: Regular rate and rhythm with a normal S1 and S2. No gallops, murmurs, or rubs. Normal PMI, no JVD. No pulse deficits. Respiratory: Lungs have equal breath sounds bilaterally, clear to auscultation and percussion. No rales, rhonchi or wheezes noted. No increased work of breathing, no retractions or nasal flaring. Abdomen/GI: Soft, with normal bowel sounds. No distension or tympany. No guarding or rebound. No evidence of tenderness throughout. Back: No spinal tenderness. No costovertebral tenderness. Skin: Warm, dry with normal turgor. Normal color with no rashes, no lesions, and no evidence of cellulitis. MS/ Extremity: Pulses equal, no cyanosis. Neurovascular intact. Full, normal range of motion. Neuro: Awake and alert, GCS 15, oriented to person, place, time, and situation. Cranial nerves II-XII grossly intact. Motor strength 5/5 in all extremities. Sensory grossly intact. Psych: Awake, alert, with orientation to person, place and time. Behavior, mood, and affect are within normal limits Vital Signs: 01/09 23:45 BP 142 / 101; Pulse 99; Resp 18; Temp 98.1; Pulse Ox 100% ; Weight 77.11 kg; Height 5 me1 ft. 7 in. ; Pain 10; 23:45 Body Mass Index 26.63 (77.11 kg, 170.18 cm) me1 23:45 Pain Scale: Adult me1 MDM: 01/10 00:03 Patient medically screened. sp4 01/11 00:02 Differential diagnosis: arthritis, strain, fracture, sciatica, contusion, Herniated sp4 disc. Data reviewed: vital signs, nurses notes, old medical records. ED course: Patient has declined medication and decided to go home. Will provide informed discharge. Administered Medications: 01/10 00:19 Not Given (Patient Refused): morphineor iv 6 mg IVP once over 4 mins cp4 00:19 Not Given (Patient Refused): mg IVP once cp4 00:19 Not Given (Patient Refused): [id number] mg PO once cp4 00:19 Not Given (Patient Refused): [id number] mg PO once cp4 00:20 Not Given (Patient Refused): ns 0.9% 1000 ml IV at 1 bolus Per protocol; 1000 mL bolus cp4 00:20 Not Given (Patient Refused): diazepam5 mg PO once cp4 Disposition Summary: 01/11/24 00:57 Discharge Ordered Notes: Location: Home sp4 Problem: new sp4 Symptoms: have improved sp4 Condition: Stable sp4 Diagnosis - Tension-type headache sp4 - Cervicalgia sp4 Followup: sp4 - With: Private Physician - When: 7 - 10 days - Reason: Recheck today's complaints Discharge Instructions: - Discharge Summary Sheet sp4 - Radicular Pain sp4 Forms: - Patient Portal Instructions sp4 Signatures: Scott Webb MD MD sp4 Yulissa Murrieta RN RN me1 Mary Anne Hendrix cp4
--- NOTE | 2024-01-11 00:57 | ER ---
Nurse's Notes [facility] Name: Kali Lopez Age: 38 yrs Sex: Male : 1985 Arrival Date: 01/10/2024 Time: 23:34 Bed 20 Private MD: Diagnosis: Tension-type headache;Cervicalgia Presentation: 01/09 23:45 Chief complaint: Patient states: c/o neck pain that radiates to head and to back since pr1 Tuesday. Was seen here on Tuesday with no relief. Coronavirus screen: Vaccine status: Patient reports receiving the 2nd dose of the covid vaccine. Ebola Screen: No symptoms or risks identified at this time. Initial Sepsis Screen: Does the patient meet any 2 criteria? No. Patient's initial sepsis screen is negative. Does the patient have a suspected source of infection? No. Patient's initial sepsis screen is negative. Risk Assessment: Do you want to hurt yourself or someone else? Patient reports no desire to harm self or others. Onset of symptoms was January 06, 2024. 23:45 Method Of Arrival: Ambulatory [facility] 23:45 Acuity: SALO 3 [facility] Triage Assessment: 23:47 Headache History: The patient has had previous headaches and this one is similar to [facility] previous episodes. General: Appears uncomfortable, well groomed, well developed, well nourished, Behavior is calm, cooperative, appropriate for age, Reports. Pain: Complains of pain in back of neck Pain radiates to back of head and posterior chest Pain currently is 10 out of 10 on a pain scale. Quality of pain is described as pulling Pain began 2-3 days ago. Is continuous. Pain: Also complains of inability to work, inability to perform activities of daily living. EENT: No signs and/or symptoms were reported regarding the EENT system. Neuro: Level of Consciousness is awake, alert, obeys commands, Oriented to person, place, time, situation, Appropriate for age. Cardiovascular: Patient's skin is warm and dry. Respiratory: Airway is patent Respiratory effort is even, unlabored, Respiratory pattern is regular, symmetrical. GI: No signs and/or symptoms were reported involving the gastrointestinal system. : No signs and/or symptoms were reported regarding the genitourinary system. Derm: Skin is intact, is healthy with good turgor, Skin is pink, warm \T\ dry. Musculoskeletal: Reports pain in back of head, back of neck and posterior chest. Historical: - Allergies: 23:47 Benadryl; me1 - PMHx: 23:47 High Cholesterol; Hypertension; Migraine; me1 - PSHx: 23:47 neck; right knee; me1 - Immunization history:: Adult Immunizations. - Infectious Disease History:: Denies. - Social history:: Smoking status: Patient reports the use of cigarette tobacco products, smokes one pack cigarettes per day. - Family history:: not pertinent. Screenin:58 [facility] ED Fall Risk Assessment (Adult) History of falling in the last 3 months, cp4 including since admission No falls in past 3 months (0 pts) Confusion or Disorientation No (0 pts) Intoxicated or Sedated No (0 pts) Impaired Gait No (0 pts) Mobility Assist Device Used No (0 pt) Altered Elimination No (0 pt) Score/Fall Risk Level 0 - 2 = Low Risk Oriented to surroundings, Maintained a safe environment, Assessed \T\ reinforced patient's understanding of fall precautions, Hourly rounding (assess needs \T\ fall precautionary measures) done. Abuse screen: Denies threats or abuse. Nutritional screening: No deficits noted. Tuberculosis screening: No symptoms or risk factors identified. Assessment: 23:58 General: Appears in no apparent distress. uncomfortable, Behavior is calm, cooperative, cp4 appropriate for age. Pain: Complains of pain in posterior chest and back of head and back of neck Pain radiates to back Pain currently is 10 out of 10 on a pain scale. Neuro: Level of Consciousness is awake, alert, obeys commands, Oriented to person, place, time, situation. Cardiovascular: Patient's skin is warm and dry. Respiratory: Airway is patent Respiratory effort is even, unlabored. GI: No signs and/or symptoms were reported involving the gastrointestinal system. : No signs and/or symptoms were reported regarding the genitourinary system. EENT: No signs and/or symptoms were reported regarding the EENT system. Derm: No signs and/or symptoms reported regarding the dermatologic system. Musculoskeletal: Reports pain in posterior chest and back of head and back of neck since Tuesday. 01/10 00:21 Reassessment: Patient stated that provider was not doing enough to help him and stated cp4 that he wanted to leave. Patient signed AMA form and exited the ED. Vital Signs: 01/09 23:45 BP 142 / 101; Pulse 99; Resp 18; Temp 98.1; Pulse Ox 100% ; Weight 77.11 kg; Height 5 pr1 ft. 7 in. ; Pain 10; 23:45 Body Mass Index 26.63 (77.11 kg, 170.18 cm) pr1 23:45 Pain Scale: Adult [facility] ED Course: 23:37 Patient arrived in ED. gm2 23:44 Scott Webb MD is Attending Physician. sp4 23:47 Triage completed. me1 23:47 Arm band placed on Patient placed in an exam room. me1 23:57 Mary Anne Hendrix is Primary Nurse. cp4 23:58 Bed in low position. Call light in reach. Side rails up X 1. cp4 23:58 No provider procedures requiring assistance completed. cp4 Administered Medications: 01/10 00:19 Not Given (Patient Refused): morphineor iv 6 mg IVP once over 4 mins cp4 00:19 Not Given (Patient Refused): jiltsmsas17 mg IVP once cp4 00:19 Not Given (Patient Refused): cvfgmtlnrvon43 mg PO once cp4 00:19 Not Given (Patient Refused): [id number] mg PO once cp4 00:20 Not Given (Patient Refused): ns 0.9% 1000 ml IV at 1 bolus Per protocol; 1000 mL bolus cp4 00:20 Not Given (Patient Refused): diazepam5 mg PO once cp4 Medication: 01/09 23:58 VIS not applicable for this client. cp4 Outcome: 01/10 00:25 AMA AMA form signed cp4 Condition: stable Discharge instructions given to patient left prior to discharge instructions 00:57 Discharge ordered by . sp4 00:59 Patient left the ED. cp4 Signatures: Scott Webb MD MD sp4 Yulissa Murrieta, ELLEN RN pr1 Mary Anne Hendrix cp4 Michelle Grossman 2
[2024-01-11 01:18] VITALS: BP 142/101; TEMP 98.1; O2SAT 100
== END 2024-01-11 00:59 | disposition home or self-care (01) ==
LOC: ER 23:34
DX: G44.209 Tension-type headache, unspecified, not intractable (principal); M54.2 Cervicalgia
CPT/HCPCS: 99282

== ENCOUNTER 2024-02-14 01:41 | Emergency (ER) | payer SELFPAY ==
[2024-02-14] MEDS ORDERED: ONDANSETRON 4 MG/2 ML VIAL ONE (01:58)
[2024-02-14] MEDS ORDERED: MORPHINE 4 MG/ML SYR ONE (01:59)
[2024-02-14] MEDS ORDERED: ASPIRIN 81 MG CHEWABLE TABLET ONE (01:59)
[2024-02-14] MEDS ORDERED: NA CHLORIDE 0.9% 1,000 ML ONE (02:15)
[2024-02-14 02:36] LABS: Absolute Eosinophils 0.2 K/uL (0-0.5); Absolute Lymphocytes (CBC) 1.1 K/uL (0.7-4.9); Absolute Monocytes 1.1 K/uL (0.1-1.3); Absolute Neutrophil 10.6 K/uL (1.8-8.0); Basophils % 0.3 % (0-1.3); Eosinophils % 1.4 % (0-4.4); Hemoglobin 14.6 g/dL (13.6-17.9); Lymphocytes % 8.6 % (15.3-44.8); MCH 29.3 pg (27.0-35.0); MCHC 33.9 g/dL (32.0-36.0); MCV 86.5 fL (80-100); MPV 7.7 fL (7.6-11.3); Monocytes % 8.7 % (3.3-12.3); Platelets 282 thou/uL (152-406); RBC Red Blood Cell Count 4.97 M/uL (4.33-5.43); Red Cell Distribution Width 14.3 % (12.1-15.2)
[2024-02-14 02:38] LABS: D-Dimer 0.334 FEUug/mL (0-0.500); PT Prothrombin Time 10.8 SECONDS (9.4-12.5); Protime INR 0.96
[2024-02-14 02:44] LABS: Albumin 3.4 g/dL (3.4-5.0); Albumin/Globulin Ratio 0.9 (1.1-1.8); Anion Gap 10.3 mEq/L (5.0-15.0); Bilirubin Direct 0.2 mg/dL (0-0.2); Bilirubin Indirect, Calculated 0.4 mg/dL (0.2-0.8); Bilirubin Total 0.6 mg/dL (0.2-1.0); Globulin 3.9 g/dL (2.3-3.5); Magnesium 1.9 mg/dL (1.6-2.4); Potassium 3.3 mEq/L (3.5-5.1); Protein, Total 7.3 g/dL (6.4-8.2); Troponin High Sensitivity 11.5 pg/mL (<58.9)
[2024-02-14 03:12] LABS: Specific Gravity 1.008 (1.005-1.030); Urine Bilirubin NEGATIVE (Negative); Urine Blood Negative (Negative); Urine Clarity Clear (Clear); Urine Color Light-Yellow (Yellow); Urine Glucose NEGATIVE (Negative); Urine Ketones NEGATIVE (Negative); Urine Microscopic Reflex YN NO UMIC; Urine Nitrite NEGATIVE (Negative); Urine Protein NEGATIVE (Negative); Urine Urobilinogen Normal (Normal)
[2024-02-14] MEDS ORDERED: POTASSIUM 25 MEQ EFFERV TAB ONE (03:15)
[2024-02-14 03:34] LABS: Barbiturates NEGATIVE (NEGATIVE); Benzodiazepines NEGATIVE (NEGATIVE); Cocaine POSITIVE (NEGATIVE); METHAMPHETAM NEGATIVE (NEGATIVE); Methadone NEGATIVE (NEGATIVE); Opiates NEGATIVE (NEGATIVE); Phencyclidine NEGATIVE (NEGATIVE); THC Cannibis NEGATIVE (NEGATIVE)
--- NOTE | 2024-02-14 04:55 | RAD REPORT ---
EXAM: XR Chest 1 View AP HISTORY: chest pain COMPARISON: Chest 1 View AP 07/15/2023 report without image Chest 2 Views AP/PA Lateral 11/19/2022 TECHNIQUE: Chest 1 View AP FINDINGS: Trachea midline. Heart size and pulmonary vessels within normal limits. Lungs clear without evidence of consolidation, mass, or significant pulmonary edema. No significant pleural effusion or pneumothorax. Bones unremarkable. IMPRESSION: Unremarkable chest radiograph. Electronically signed by: Girish Moreland MD 02/14/2024 03:53 AM CDT Due to temporary technical issues with the PACS/Seeqpod reporting system, reports are being tito d by the in-house radiologist without review as a courtesy to ensure prompt reporting the interpreting radiologist is fully responsible for the content of the report. Transcribed Date/Time: 02/14/2024 4:55 AM
--- NOTE | 2024-02-14 05:06 | ER ---
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 vc1 01:44 Coronavirus screen: Client denies travel out of the [place] in the last 14 days. At this vc1 time, the client does not indicate any symptoms associated with coronavirus-19. Ebola Screen: Patient negative for fever greater than or equal to 101.5 degrees Fahrenheit, and additional compatible Ebola Virus Disease symptoms Patient denies exposure to infectious person. Patient denies travel to an Ebola-affected area in the 21 days before illness onset. No symptoms or risks identified at this time. 01:44 Method Of Arrival: Ambulatory vc1 01:44 Initial Sepsis Screen: Does the patient meet any 2 criteria? No. Patient's initial vc1 sepsis screen is negative. Does the patient have a suspected source of infection? No. Patient's initial sepsis screen is negative. Risk Assessment: Do you want to hurt yourself or someone else?. Onset of symptoms was February 14, 2024 at 01:30. 01:44 Acuity: SALO 3 vc1 Triage Assessment: 02:14 General: Appears Behavior is. General: Appears in no apparent distress. uncomfortable, vc1 slender, Behavior is cooperative, restless. Pain: Complains of pain in anterior aspect of left upper chest and left breast Pain does not radiate. Pain currently is 10 out of 10 on a pain scale. EENT: No deficits noted. No signs and/or symptoms were reported regarding the EENT system. Neuro: Level of Consciousness is awake, alert, obeys commands, Oriented to person, place, time, situation, Appropriate for age. Cardiovascular: Reports chest pain, Capillary refill < 3 seconds Patient's skin is warm and dry. 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 Respiratory: Airway is patent Respiratory effort is even, unlabored, Respiratory pattern is regular, symmetrical, Breath sounds are clear bilaterally. GI: No deficits noted. No signs and/or symptoms were reported involving the gastrointestinal system. : No deficits noted. No signs and/or symptoms were reported regarding the genitourinary system. Derm: Skin is intact, is healthy with good turgor, Skin is dry, Skin is normal, Skin temperature is warm. Historical: - Allergies: 01:45 Benadryl; vc1 - PMHx: 01:45 High Cholesterol; Hypertension; Migraine; vc1 - PSHx: 01:45 neck; right knee; vc1 - Immunization history:: Client reports having NOT received the Covid vaccine. - Infectious Disease History:: Denies. - Social history:: Smoking status: Patient reports the use of cigarette tobacco products, smokes one pack cigarettes per day. - Family history:: not pertinent. Screenin:45 Abuse screen: Denies threats or abuse. Nutritional screening: No deficits noted. vc1 Tuberculosis screening: No symptoms or risk factors identified. 01:58 [facility] ED Fall Risk Assessment (Adult) History of falling in the last 3 months, dd2 including since admission No falls in past 3 months (0 pts) Confusion or Disorientation No (0 pts) Intoxicated or Sedated No (0 pts) Impaired Gait No (0 pts) Mobility Assist Device Used No (0 pt) Altered Elimination No (0 pt) Score/Fall Risk Level 0 - 2 = Low Risk Oriented to surroundings, Maintained a safe environment, Educated pt \\T\\ family on fall prevention, incl call for assistance when getting out of bed, Assessed \\T\\ reinforced patient's understanding of fall precautions, Hourly rounding (assess needs \\T\\ fall precautionary measures) done. Assessment: 01:58 General: Appears uncomfortable, Behavior is cooperative, appropriate for age. Pain: dd2 Complains of pain in mid-sternal area and left breast Pain currently is 10 out of 10 on a pain scale. Pain began suddenly. Pain: Pain does not radiate. Neuro: Level of Consciousness is awake, alert, obeys commands, Oriented to person, place, time, situation, Appropriate for age Gait is steady. Cardiovascular: Reports chest pain, Heart tones S1 S2 Patient's skin is warm and dry. Rhythm is regular Chest pain is described as "worst pain of my life", began 30 minutes prior to arrival. Respiratory: Airway is patent Respiratory effort is even, unlabored, Respiratory pattern is regular, symmetrical, Breath sounds are clear bilaterally. GI: No signs and/or symptoms were reported involving the gastrointestinal system. Abdomen is flat, Abd is non tender X 4 quads. : No signs and/or symptoms were reported regarding the genitourinary system. EENT: No deficits noted. No signs and/or symptoms were reported regarding the EENT system. Derm: No deficits noted. No signs and/or symptoms reported regarding the dermatologic system. Musculoskeletal: No deficits noted. No signs and/or symptoms reported regarding the musculoskeletal system. Circulation, motion, and sensation intact. Range of motion: intact in all extremities. Vital Signs: 01:44 Weight 72.57 kg; Height 5 ft. 7 in. ; Pain 10/10; vc1 02:01 BP 142 / 84; Pulse 86; Resp 17; Temp 98.4; Pulse Ox 95% ; Weight 72.57 kg; Height 5 ft. dd2 7 in. ; 03:23 BP 138 / 91; Pulse 65; Resp 16; Pulse Ox 100% ; dd2 05:00 BP 133 / 87; Pulse 63; Resp 16; Temp 98.2; Pulse Ox 100% ; dd2 02:01 Body Mass Index 25.06 (72.57 kg, 170.18 cm) dd2 01:44 Pain Scale: Adult vc1 [place] Coma Score: 01:58 Eye Response: spontaneous(4). Motor Response: obeys commands(6). Verbal Response: dd2 oriented(5). Total: 15. ED Course: 01:42 Patient arrived in ED. [id number] 01:45 RIC MCRAE RN is Primary Nurse. dd2 01:53 Eugene Almanza MD is Attending Physician. rosa 01:56 No provider procedures requiring assistance completed. EKG done, by ED staff, reviewed dd2 by Eugene Almanza MD. Patient maintains SpO2 saturation greater than 95% on room air. 01:58 Provided Education on: call light, medication, procedures, labs. Door closed. Noise dd2 minimized. Warm blanket given. Pillow given. Verbal reassurance given. 02:03 Initial lab(s) drawn, by ED staff, sent to lab. Inserted saline lock: 20 gauge in right dd2 forearm, using aseptic technique. Blood collected. Flushed with 10 mL NS. 02:13 Triage completed. vc1 02:13 Patient has correct armband on for positive identification. Bed in low position. Call vc1 light in reach. telemetry monitor on. Pulse ox on. NIBP on. 02:25 XRAY Chest (1 view) In Process Unspecified. EDMS 03:18 EKG done, by ED staff, reviewed by Eugene Almanza MD. dd2 05:05 Montez Pike MD is Referral Physician. [facility] 05:31 IV discontinued, intact, bleeding controlled, No redness/swelling at site. Pressure dd2 dressing applied. 05:32 Arm band placed on. dd2 Administered Medications: 02:07 Drug: Aspirin PO Chewable Tablet 324 mg PO once; 81 mg tablets x 4 Route: PO; dd2 02:37 Follow up: Response: No adverse reaction dd2 02:07 Drug: morphine IVP or IV 4 mg IVP once over 4 mins Route: IVP; Infused Over: 4 mins; dd2 Site: right forearm; 02:22 Follow up: Response: No adverse reaction dd2 02:07 Drug: Ondansetron IVP 4 mg IVP once; over 2 minutes Route: IVP; Site: right forearm; dd2 02:22 Follow up: Response: No adverse reaction dd2 02:19 Drug: NS 0.9% IV 1000 ml IV at 1000 ml once; to be given as a bolus over 60 minutes dd2 Route: IV; Rate: 1000 ml; Site: right antecubital; 03:19 Follow up: Response: No adverse reaction; IV Status: Completed infusion; IV Intake: dd2 1000ml 03:15 Drug: Potassium PO Effervescent Tablet 25 mEq PO once; dissolve in 4 ounces of water or dd2 juice Route: PO; 03:45 Follow up: Response: No adverse reaction dd2 Medication: 02:13 VIS not applicable for this client. vc1 Intake: 03:19 IV: 1000ml; Total: 1000ml. dd2 Outcome: 05:05 Discharge ordered by . rosa 05:31 Discharged to home ambulatory, dd2 05:31 Condition: stable 05:31 Discharge instructions given to patient, Instructed on discharge instructions, follow up and referral plans. medication usage, Demonstrated understanding of instructions, follow-up care, medications, Prescriptions given X 2, 05:36 Patient left the ED. dd2 Signatures: Dispatcher [employer] Eugene Cornelius MD MD cha Jeffries, Jennifer [email or web address] Ruby Echevarria RN RN vc1 RIC MCRAE RN RN dd2
--- NOTE | 2024-02-14 05:06 | EDPHYS ---
Physician Documentation [facility] Name: Kali Lopez Age: 38 yrs Sex: Male : 1985 Arrival Date: 02/14/2024 Time: 01:41 Bed 16 Private MD: JACLYN Physician Eugene Almanza HPI: 02/13 02:42 This 38 yrs old Male presents to ER via Ambulatory with complaints of Chest rosa Pain. 02:42 The patient or guardian reports chest pain that is located primarily in the anterior rosa chest wall, bilaterally. The pain does not radiate. Associated signs and symptoms: Pertinent positives: None. The chest pain is described as aching. Duration: The patient or guardian reports a single episode, that is still ongoing. Modifying factors: The symptoms are alleviated by remaining still, the symptoms are aggravated by movement, palpation of area, twisting torso. Severity of pain: At its worst the pain was mild in the emergency department the pain is unchanged. The patient has not experienced similar symptoms in the past. Historical: - Allergies: 01:45 Benadryl; vc1 - PMHx: 01:45 High Cholesterol; Hypertension; Migraine; vc1 - PSHx: 01:45 neck; right knee; vc1 - Immunization history:: Client reports having NOT received the Covid vaccine. - Infectious Disease History:: Denies. - Social history:: Smoking status: Patient reports the use of cigarette tobacco products, smokes one pack cigarettes per day. - Family history:: not pertinent. ROS: 02:42 Constitutional: Negative for fever, chills, and weight loss, Eyes: Negative for injury, rosa pain, redness, and discharge, ENT: Negative for injury, pain, and discharge, Neck: Negative for injury, pain, and swelling, Respiratory: Negative for shortness of breath, cough, wheezing, and pleuritic chest pain, Abdomen/GI: Negative for abdominal pain, nausea, vomiting, diarrhea, and constipation, Back: Negative for injury and pain, : Negative for injury, bleeding, discharge, and swelling, MS/Extremity: Negative for injury and deformity, Skin: Negative for injury, rash, and discoloration, Neuro: Negative for headache, weakness, numbness, tingling, and seizure, Psych: Negative for depression, anxiety, suicide ideation, homicidal ideation, and hallucinations, Allergy/Immunology: Negative for hives, rash, and allergies, Endocrine: Negative for neck swelling, polydipsia, polyuria, polyphagia, and marked weight changes, Hematologic/Lymphatic: Negative for swollen nodes, abnormal bleeding, and unusual bruising, 02:42 Cardiovascular: Positive for chest pain, of the chest, Exam: 02:42 Constitutional: This is a well developed, well nourished patient who is awake, alert, rosa and in no acute distress. Head/Face: Normocephalic, atraumatic. Eyes: Pupils equal round and reactive to light, extra-ocular motions intact. Lids and lashes normal. Conjunctiva and sclera are non-icteric and not injected. Cornea within normal limits. Periorbital areas with no swelling, redness, or edema. ENT: Nares patent. No nasal discharge, no septal abnormalities noted. Tympanic membranes are normal and external auditory canals are clear. Oropharynx with no redness, swelling, or masses, exudates, or evidence of obstruction, uvula midline. Mucous membranes moist. Neck: Trachea midline, no thyromegaly or masses palpated, and no cervical lymphadenopathy. Supple, full range of motion without nuchal rigidity, or vertebral point tenderness. No Meningismus. Cardiovascular: Regular rate and rhythm with a normal S1 and S2. No gallops, murmurs, or rubs. Normal PMI, no JVD. No pulse deficits. Respiratory: Lungs have equal breath sounds bilaterally, clear to auscultation and percussion. No rales, rhonchi or wheezes noted. No increased work of breathing, no retractions or nasal flaring. Abdomen/GI: Soft, non-tender, with normal bowel sounds. No distension or tympany. No guarding or rebound. No evidence of tenderness throughout. Back: No spinal tenderness. No costovertebral tenderness. Full range of motion. Male : Normal genitalia with no discharge or lesions. Skin: Warm, dry with normal turgor. Normal color with no rashes, no lesions, and no evidence of cellulitis. MS/ Extremity: Pulses equal, no cyanosis. Neurovascular intact. Full, normal range of motion. Neuro: Awake and alert, GCS 15, oriented to person, place, time, and situation. Cranial nerves II-XII grossly intact. Motor strength 5/5 in all extremities. Sensory grossly intact. Cerebellar exam normal. Normal gait. Psych: Awake, alert, with orientation to person, place and time. Behavior, mood, and affect are within normal limits. 02:42 Chest/axilla: Inspection: normal, Palpation: tenderness, that is mild, that is moderate, of the right clavicle, left clavicle, anterior aspect of right upper chest, anterior aspect of left upper chest and mid-sternal area, Axilla: are normal, no acute changes, Lymph nodes: lymphadenopathy is not appreciated, 02:42 Cardiovascular: Rate: normal, Rhythm: regular, Pulses: Pulses are 4+ in bilateral radial, brachial, femoral, popliteal, posterior tibial and and dorsalis pedis arteries.. Heart sounds: normal, Edema: is not appreciated, JVD: is not appreciated, 02:42 ECG was reviewed by the Attending Physician. 03:20 ECG was reviewed by the Attending Physician. [facility] Vital Signs: 01:44 Weight 72.57 kg; Height 5 ft. 7 in. ; Pain 10/10; vc1 02:01 BP 142 / 84; Pulse 86; Resp 17; Temp 98.4; Pulse Ox 95% ; Weight 72.57 kg; Height 5 ft. dd2 7 in. ; 03:23 BP 138 / 91; Pulse 65; Resp 16; Pulse Ox 100% ; dd2 05:00 BP 133 / 87; Pulse 63; Resp 16; Temp 98.2; Pulse Ox 100% ; dd2 02:01 Body Mass Index 25.06 (72.57 kg, 170.18 cm) dd2 01:44 Pain Scale: Adult vc1 [place] Coma Score: 01:58 Eye Response: spontaneous(4). Motor Response: obeys commands(6). Verbal Response: dd2 oriented(5). Total: 15. MDM: 01:53 Medical Screening Exam initiated rosa 02:46 Differential diagnosis: abnormal EKG, acute myocardial infarction, acute pericarditis, rosa anxiety, chest wall pain, cholecystitis, Cholelithiasis costochondritis, esophagitis, herpes zoster, myocarditis, pancreatitis, peptic ulcer disease, pericarditis, pleurisy, pneumonia, pulmonary embolus, stable angina, thoracic aortic disection, unstable angina. HEART Score: History: Slightly Suspicious (0), ECG: Normal (0), Age: < or = 45 years (0), Risk Factors: > or = 3 Risk factors for atherosclerotic disease (2), [Hypercholesterolemia] [Hypertension] [+ Family HX] Troponin: < or = 1 x Normal Limit (0). RICKIE Risk Score: 1 - Three or more CAD risk factors, 1 - Recent [<24hrs] Severe Angina, TOTAL SCORE = 2. Data reviewed: vital signs, nurses notes, lab test result(s), EKG, radiologic studies, plain films. Consideration of Admission/Observation Escalation of care including admission/observation considered. I considered the following discharge prescriptions or medication management in the emergency department Medications were administered in the Emergency Department. See MAR. Independent interpretation of the following test(s) in the Emergency Department EKG: See my EKG interpretation above. Test considered but Not performed: CT: CT PE. 02/13 01:55 Order name: Basic Metabolic Panel; Complete Time: 03:07 [facility] 02/13 01:55 Order name: CBC with Diff; Complete Time: 02:38 [facility] 02/13 01:55 Order name: LFT's; Complete Time: 03:07 [facility] 02/13 01:55 Order name: Magnesium; Complete Time: 03:07 [facility] 02/13 01:55 Order name: NT PRO-BNP; Complete Time: 03:07 02/13 01:55 Order name: PT-INR; Complete Time: 03:07 02/13 01:55 Order name: Troponin HS; Complete Time: 03:07 [facility] 02/13 01:55 Order name: D-Dimer; Complete Time: 03:07 [facility] 02/13 01:55 Order name: Lipase; Complete Time: 03:07 [facility] 02/13 01:55 Order name: Urinalysis w/ reflexes; Complete Time: 03:48 02/13 01:55 Order name: UDS; Complete Time: 03:48 02/13 02:38 Order name: Troponin High Sensitivity: 4AM; Complete Time: 05:04 02/13 01:55 Order name: XRAY Chest (1 view); Complete Time: 05:04 02/13 01:55 Order name: Cardiac monitoring; Complete Time: 01:56 [facility] 02/13 01:55 Order name: EKG - Nurse/Tech; Complete Time: 01:56 02/13 01:55 Order name: IV Saline Lock; Complete Time: 05:36 02/13 01:55 Order name: Labs collected and sent; Complete Time: 05:36 [facility] 02/13 01:55 Order name: O2 Per Protocol; Complete Time: 01:56 [facility] 02/13 01:55 Order name: O2 Sat Monitoring; Complete Time: :56 [facility] 02/13 02:38 Order name: EKG - Nurse/Tech: 300 AM; Complete Time: 05:32 [facility] EC:42 Rate is 86 beats/min. Rhythm is regular. QRS [place] is Normal. HI interval is normal. QRS rosa interval is normal. QT interval is normal. No Q waves. T waves are Normal. No ST changes noted. Clinical impression: Normal ECG, NSR w/ Non-specific ST/T Changes, and No evidence of ischemia. Interpreted by me. Reviewed by me. 03:20 Rate is 71 beats/min. Rhythm is regular. QRS [place] is Normal. HI interval is normal. QRS rosa interval is normal. QT interval is normal. No Q waves. T waves are Normal. No ST changes noted. Clinical impression: NSR w/ Non-specific ST/T Changes and No evidence of ischemia. Interpreted by me. Reviewed by me. Administered Medications: 02:07 Drug: Aspirin PO Chewable Tablet 324 mg PO once; 81 mg tablets x 4 Route: PO; dd2 02:37 Follow up: Response: No adverse reaction dd2 02:07 Drug: morphine IVP or IV 4 mg IVP once over 4 mins Route: IVP; Infused Over: 4 mins; dd2 Site: right forearm; 02:22 Follow up: Response: No adverse reaction dd2 02:07 Drug: Ondansetron IVP 4 mg IVP once; over 2 minutes Route: IVP; Site: right forearm; dd2 02:22 Follow up: Response: No adverse reaction dd2 02:19 Drug: NS 0.9% IV 1000 ml IV at 1000 ml once; to be given as a bolus over 60 minutes dd2 Route: IV; Rate: 1000 ml; Site: right antecubital; 03:19 Follow up: Response: No adverse reaction; IV Status: Completed infusion; IV Intake: dd2 1000ml 03:15 Drug: Potassium PO Effervescent Tablet 25 mEq PO once; dissolve in 4 ounces of water or dd2 juice Route: PO; 03:45 Follow up: Response: No adverse reaction dd2 Disposition Summary: 02/14/24 05:05 Discharge Ordered Notes: Location: Home rosa Problem: new rosa Symptoms: have improved rosa Condition: Stable rosa Diagnosis - Chest pain, unspecified - WALL rosa - Unspecified symptoms and signs involving the musculoskeletal system rosa - Hypokalemia rosa - Cocaine abuse rosa - Tobacco abuse counseling rosa - Tobacco use rosa - Elevated white blood cell count rosa Followup: rosa - With: Private Physician - When: 2 - 3 days - Reason: Recheck today's complaints, Continuance of care, Re-evaluation by your physician Followup: rosa - With: Montez Pike MD - When: 2 - 3 days - Reason: Recheck today's complaints, Re-evaluation by your physician Discharge Instructions: - Discharge Summary Sheet rosa - Nonspecific Chest Pain, Adult rosa - Chest Wall Pain rosa - Cocaine Use Disorder rosa - Potassium Content of Foods rosa - Substance Use Disorder rosa - Chest Wall Pain, [id number] rosa - Nonspecific Chest Pain, Adult, [id number] rosa - Aspirin and Your Heart rosa - Hypokalemia rosa - Substance Use Disorder and Mental Illness [facility] Forms: - Medication Reconciliation Form rosa - Antibiotic Education rosa - Prescription Opioid Use rosa - Patient Portal Instructions rosa - Leadership Thank You Letter rosa - Work release form dd2 Prescriptions: - Ibuprofen 600 mg Oral tablet - take 1 tablet ORAL route every 8 hours As needed take with food; 21 tablet; [facility] Refills: 0, Product Selection Permitted - Pepcid 20 mg Oral Tablet - take 1 tablet ORAL route every 12 hours for 10 days; 20 tablet; Refills: 0, rosa Product Selection Permitted Signatures: Dispatcher [employer] Eugene Cornelius MD MD cha Calcote, Vanessa RN RN vc1 RIC MCRAE RN RN dd2 Corrections: (The following items were deleted from the chart) 01: 01:55 BASIC METABOLIC PANEL+C.LAB.BRZ ordered. EDMS EDMS 01:55 01:55 CBC+H.LAB.BRZ ordered. EDMS EDMS :55 01:55 HEPATIC FUNCTION+C.LAB.BRZ ordered. EDMS EDMS :55 01:55 MAGNESIUM+C.LAB.BRZ ordered. EDMS EDMS 01:55 01:55 PROBNP+C.LAB.BRZ ordered. EDMS EDMS 01:55 01:55 PROTIME (+INR)+COAG.LAB.BRZ ordered. EDMS EDMS 01:55 01:55 Troponin High Sensitivity+C.LAB.BRZ ordered. EDMS EDMS 01:55 01:55 D-DIMER+COAG.LAB.BRZ ordered. EDMS EDMS 01:55 01:55 LIPASE+C.LAB.BRZ ordered. EDMS EDMS 01:55 01:55 Urinalysis+U.LAB.BRZ ordered. EDMS EDMS 01:55 01:55 URINE DRUG SCREEN+UC.LAB.BRZ ordered. EDMS EDMS 02:38 02:38 Troponin High Sensitivity+C.LAB.BRZ ordered. EDMS EDMS
[2024-02-14 09:40] VITALS: O2SAT 100
[2024-02-14 09:42] VITALS: BP 133/87; TEMP 98.2
--- NOTE | 2024-02-16 11:59 | EKG ---
Test Date: 2024-02-14 Test Time: 03:16:12 Corporate Safety Director: NINO MEASUREMENT RESULTS: Intervals: Rate: 71 IN: 134 QRSD: 100 QT: 424 QTc: 460 [place]: P: 77 IN: 134 QRS: 52 T: 67 INTERPRETIVE STATEMENTS: Normal sinus rhythm Possible Left atrial enlargement Borderline ECG Compared to ECG 02/14/2024 01:52:13 No significant changes Electronically Signed On 02-16-24 11:53:54 CDT by Barrie Chaidez
--- NOTE | 2024-02-16 12:00 | EKG ---
Test Date: 2024-02-14 Test Time: 01:52:13 General Education Instructor: NINO MEASUREMENT RESULTS: Intervals: Rate: 86 IN: 132 QRSD: 90 QT: 368 QTc: 440 [place]: P: 77 IN: 132 QRS: 39 T: 62 INTERPRETIVE STATEMENTS: Normal sinus rhythm Normal ECG Compared to ECG 07/15/2023 04:22:56 No significant changes Electronically Signed On 02-16-24 11:53:57 CDT by Barrie Chaidez
== END 2024-02-14 05:36 | disposition home or self-care (01) ==
LOC: ER 01:41
DX: R07.89 Other chest pain (principal); F14.10 Cocaine abuse, uncomplicated; R29.91 Unspecified symptoms and signs involving the musculoskeletal system; E87.6 Hypokalemia; D72.829 Elevated white blood cell count, unspecified; I10 Essential (primary) hypertension; Z72.0 Tobacco use; Z71.6 Tobacco abuse counseling
CPT/HCPCS: 36415; 71045; 80048; 80076; 80307; 81003; 83690; 83735; 83880; 84484; 85025; 85379; 85610; 93005; 96361; 96374; 96375; 99285; J2405; J7030

== ENCOUNTER 2024-04-26 03:54 | Emergency (ER) | payer OTHER, SELFPAY ==
[2024-04-26] MEDS ORDERED: methocarbamoL 750 MG TAB ONE (05:15)
[2024-04-26] MEDS ORDERED: HYDROCODONE/APAP 5/325 MG TAB ONE (05:15)
--- NOTE | 2024-04-26 06:35 | RAD REPORT ---
PROCEDURE: CT HEAD AND CERVICAL SPINE WITHOUT CONTRAST TECHNIQUE: Computerized tomography of the head and CT cervical spine was performed without contrast material. This exam was performed according to our department optimization program which includes automated exposure control, adjustment of the mA and/or kV according to patient size, and/or use of i terative reconstruction technique. HISTORY: Pain after trauma COMPARISONS: None available for comparison. FINDINGS: CT head: Skull and scalp: Normal. Paranasal sinuses: Left maxillary sinus mucosal thickening. Mastoids are aerated. Ventricles and subarachnoid spaces: Normal. Cerebrum: No evidence of hemorrhage, acute infarction or mass. Cerebellum and brainstem: No evidence of hemorrhage, acute infarction or mass. CT cervical spine: There is straightening of usual cervical lordosis. There has been anterior fusion at C4-5 with plate and screws in place. No evidence of hardware failure. No acute fracture or subluxation. IMPRESSION: 1. No acute intracranial abnormality. 2. No acute fracture or subluxation of the cervical spine. 3. Left maxillary sinus mucosal thickening. Electronically signed by: Susi Beltran MD 04/26/2024 06:03 AM [facility] Due to temporary technical issues with the PACS/Nixon reporting system, reports are being tito d by the in-house radiologist without review as a courtesy to ensure prompt reporting the interpreting radiologist is fully responsible for the content of the report. Transcribed Date/Time: 04/26/2024 6:34 AM
--- NOTE | 2024-04-26 07:25 | ER ---
Nurse's Notes [facility] Name: Kali Lopez Age: 38 yrs Sex: Male : 1985 Arrival Date: 04/26/2024 Time: 03:54 Bed 20 Private MD: Diagnosis: Acute neck injury, acute fall at home, acute posterior neck contusion Presentation: 04/26 04:25 Chief complaint: Patient states: slipped in the shower and hit back of neck on ledge. i lg3 had a surgery and a plate placed in my neck about a year ago. Coronavirus screen: Client denies travel out of the [place] in the last 14 days. At this time, the client does not indicate any symptoms associated with coronavirus-19. Ebola Screen: No symptoms or risks identified at this time. Initial Sepsis Screen: Does the patient meet any 2 criteria? No. Patient's initial sepsis screen is negative. Does the patient have a suspected source of infection? No. Patient's initial sepsis screen is negative. Risk Assessment: Do you want to hurt yourself or someone else? Patient reports no desire to harm self or others. Onset of symptoms was April 26, 2024. 04:25 Method Of Arrival: Ambulatory lg3 04:25 Acuity: SALO 3 lg3 Triage Assessment: 04:27 General: Appears in no apparent distress. uncomfortable, Behavior is calm, cooperative. lg3 Pain: Complains of pain in neck. EENT: No deficits noted. No signs and/or symptoms were reported regarding the EENT system. Neuro: No deficits noted. Diamond Agitation-Sedation Scale (RASS): 0 - Alert and Calm Level of Consciousness is awake, alert, obeys commands, Oriented to person, place, time, situation. Cardiovascular: No deficits noted. Denies chest pain, shortness of breath, Capillary refill < 3 seconds Clubbing of nail beds is absent JVD is absent Patient's skin is warm and dry. Respiratory: No deficits noted. Airway is patent Respiratory effort is even, unlabored, Respiratory pattern is regular, symmetrical. GI: No deficits noted. No signs and/or symptoms were reported involving the gastrointestinal system. : No signs and/or symptoms were reported regarding the genitourinary system. Derm: No deficits noted. No signs and/or symptoms reported regarding the dermatologic system. Skin is intact, is healthy with good turgor, Skin is dry, Skin is normal, Skin temperature is warm. Musculoskeletal: Circulation, motion, and sensation intact. Range of motion: intact in all extremities, Reports pain in back of neck. Historical: - Allergies: 04:27 Benadryl; lg3 - Home Meds: 04:27 None [Active]; lg3 - PMHx: 04:27 High Cholesterol; Hypertension; Migraine; lg3 - PSHx: :27 neck; right knee; lg3 - Immunization history:: Adult Immunizations up to date. - Infectious Disease History:: Denies. - Social history:: Smoking status: Patient reports the use of cigarette tobacco products, smokes one pack cigarettes per day. Patient uses alcohol, on a daily basis. - Family history:: not pertinent. Screenin:22 [facility] ED Fall Risk Assessment (Adult) History of falling in the last 3 months, dd2 including since admission Yes- single mechanical fall (1 pt) Confusion or Disorientation No (0 pts) Intoxicated or Sedated No (0 pts) Impaired Gait No (0 pts) Mobility Assist Device Used No (0 pt) Altered Elimination No (0 pt) Score/Fall Risk Level 0 - 2 = Low Risk. Abuse screen: Denies threats or abuse. Nutritional screening: No deficits noted. Tuberculosis screening: No symptoms or risk factors identified. Assessment: 05:22 General: Appears in no apparent distress. unkempt, Behavior is uncooperative. Pain: dd2 Complains of pain in back of neck. Neuro: No deficits noted. Cardiovascular: No deficits noted. Respiratory: No deficits noted. GI: No deficits noted. No signs and/or symptoms were reported involving the gastrointestinal system. : No deficits noted. No signs and/or symptoms were reported regarding the genitourinary system. EENT: No deficits noted. No signs and/or symptoms were reported regarding the EENT system. Derm: No deficits noted. No signs and/or symptoms reported regarding the dermatologic system. Musculoskeletal: No deficits noted. Circulation, motion, and sensation intact. Range of motion: intact in all extremities. 06:15 Reassessment: Patient and/or family updated on plan of care and expected duration. Pain rs5 level reassessed. Patient is alert, oriented x 3, equal unlabored respirations, skin warm/dry/pink. 07:35 Reassessment: Patient and/or family updated on plan of care and expected duration. Pain rs5 level reassessed. Patient is alert, oriented x 3, equal unlabored respirations, skin warm/dry/pink. Vital Signs: 04:25 BP 143 / 86; Pulse 92; Resp 16 S; Temp 96.9(O); Pulse Ox 100% on R/A; Weight 77.11 kg lg3 (R); Height 5 ft. 7 in. (R); 07:00 BP 135 / 81; Pulse 88; Resp 17; Temp 97.8(O); Pulse Ox 99% ; rs5 07:40 BP 132 / 79; Pulse 81; Resp 16; Pulse Ox 99% on R/A; rs5 04:25 Body Mass Index 26.63 (77.11 kg, 170.18 cm) lg3 [place] Coma Score: 05:22 Eye Response: spontaneous(4). Motor Response: obeys commands(6). Verbal Response: dd2 oriented(5). Total: 15. 22:20 Eye Response: spontaneous(4). Motor Response: obeys commands(6). Verbal Response: sp4 oriented(5). Total: 15. ED Course: 03:57 Patient arrived in ED. gm2 04:06 Scott Webb MD is Attending Physician. sp4 04:27 Triage completed. lg3 04:27 Arm band placed on right wrist. lg3 04:45 RIC MCRAE, RN is Primary Nurse. dd2 05:22 Patient has correct armband on for positive identification. Bed in low position. Call dd2 light in reach. Client placed on continuous cardiac and pulse oximetry monitoring. NIBP monitoring applied. Door closed. Noise minimized. Warm blanket given. Pillow given. Verbal reassurance given. 05:22 No provider procedures requiring assistance completed. Patient did not have IV access dd2 during this emergency room visit. Patient maintains SpO2 saturation greater than 95% on room air. 05:34 CT Head C Spine In Process Unspecified. EDMS 07:40 Provided Education on: discharge instructions . rs5 Administered Medications: 05:18 Drug: HYDROcodone-acetaminophen PO 5 mg-325 mg 2 tabs PO once Route: PO; dd2 07:00 Follow up: Response: No adverse reaction; Pain is decreased rs5 05:18 Drug: Methocarbamol PO 1500 mg PO once Route: PO; dd2 07:00 Follow up: Response: No adverse reaction; Pain is decreased rs5 Medication: 05:22 VIS not applicable for this client. dd2 Outcome: 07:24 Discharge ordered by . cuauhtemoc 07:45 Discharged to home ambulatory, rs5 07:45 Condition: stable rs5 07:45 Discharge instructions given to patient, family, Instructed on discharge instructions, follow up and referral plans. medication usage, Demonstrated understanding of instructions, follow-up care, medications, Prescriptions given X 1, 07:48 Patient left the ED. rs5 Signatures: Dispatcher [employer] EDMS Yadira Hernandez RN RN lg3 Meo Veliz RN RN rs5 Scott Webb MD MD sp4 Michelle Grossman 2 RIC MCRAE RN RN dd2
--- NOTE | 2024-04-26 07:26 | EDPHYS ---
Physician Documentation [facility] Name: Kali Lopez Age: 38 yrs Sex: Male : 1985 Arrival Date: 04/26/2024 Time: 03:54 Bed 20 Private MD: ED Physician Scott Webb HPI: 04/26 04:07 This 38 yrs old Male presents to ER via Unassigned with complaints of Fall sp4 Injury, Pt stated he slipped and fell in the shower. 22:20 38-year-old male presents with acute fall and acute neck pain. Patient reported sp4 posterior neck pain. History of C-spine fixation hardware.. Historical: - Allergies: 04:27 Benadryl; lg3 - Home Meds: 04:27 None [Active]; lg3 - PMHx: 04:27 High Cholesterol; Hypertension; Migraine; lg3 - PSHx: 04:27 neck; right knee; lg3 - Immunization history:: Adult Immunizations up to date. - Infectious Disease History:: Denies. - Social history:: Smoking status: Patient reports the use of cigarette tobacco products, smokes one pack cigarettes per day. Patient uses alcohol, on a daily basis. - Family history:: not pertinent. ROS: 22:20 Constitutional: Negative for fever, chills, and weight loss, Positive acute fall sp4 positive posterior neck pain 22:20 All other systems are negative, Exam: 22:20 Constitutional: This is a well developed, well nourished patient who is awake, alert, sp4 and in no acute distress. Head/Face: Normocephalic, atraumatic. Eyes: Pupils equal round and reactive to light, extra-ocular motions intact. Lids and lashes normal. Conjunctiva and sclera are not injected. Cornea within normal limits. Periorbital areas with no swelling, redness, or edema. ENT: Nares patent. No nasal discharge, no septal abnormalities noted. Tympanic membranes are normal and external auditory canals are clear. Oropharynx with no redness, swelling, or masses, exudates, or evidence of obstruction, uvula midline. Mucous membranes moist. Neck: Trachea midline, no thyromegaly or masses palpated, and no cervical lymphadenopathy. Supple, full range of motion without nuchal rigidity, or vertebral point tenderness. Chest/axilla: Normal chest wall appearance and motion. Nontender with no deformity. No lesions are appreciated. Cardiovascular: Regular rate and rhythm with a normal S1 and S2. No gallops, murmurs, or rubs. Normal PMI, no JVD. No pulse deficits. Respiratory: Lungs have equal breath sounds bilaterally, clear to auscultation and percussion. No rales, rhonchi or wheezes noted. No increased work of breathing, no retractions or nasal flaring. Abdomen/GI: Soft, with normal bowel sounds. No distension or tympany. No guarding or rebound. No evidence of tenderness throughout. Back: No spinal tenderness. No costovertebral tenderness. Skin: Warm, dry with normal turgor. Normal color with no rashes, no lesions, and no evidence of cellulitis. MS/ Extremity: Pulses equal, no cyanosis. Neurovascular intact. Full, normal range of motion. Neuro: Awake and alert, GCS 15, oriented to person, place, time, and situation. Cranial nerves II-XII grossly intact. Motor strength 5/5 in all extremities. Sensory grossly intact. Psych: Awake, alert, with orientation to person, place and time. Behavior, mood, and affect are within normal limits Vital Signs: 04:25 BP 143 / 86; Pulse 92; Resp 16 S; Temp 96.9(O); Pulse Ox 100% on R/A; Weight 77.11 kg lg3 (R); Height 5 ft. 7 in. (R); 07:00 BP 135 / 81; Pulse 88; Resp 17; Temp 97.8(O); Pulse Ox 99% ; rs5 07:40 BP 132 / 79; Pulse 81; Resp 16; Pulse Ox 99% on R/A; rs5 04:25 Body Mass Index 26.63 (77.11 kg, 170.18 cm) lg3 [place] Coma Score: 05:22 Eye Response: spontaneous(4). Motor Response: obeys commands(6). Verbal Response: dd2 oriented(5). Total: 15. 22:20 Eye Response: spontaneous(4). Motor Response: obeys commands(6). Verbal Response: sp4 oriented(5). Total: 15. MDM: 04:38 Medical Screening Exam initiated sp4 07:21 ED course: PROCEDURE: CT HEAD AND CERVICAL SPINE WITHOUT CONTRAST TECHNIQUE: sp4 Computerized tomography of the head and CT cervical spine was performed without contrast material. This exam was performed according to our department optimization program which includes automated exposure control, adjustment of the mA and/or kV according to patient size, and/or use of iterative reconstruction technique. HISTORY: Pain after trauma COMPARISONS: None available for comparison. FINDINGS: CT head: Skull and scalp: Normal. Paranasal sinuses: Left maxillary sinus mucosal thickening. Mastoids are aerated. Ventricles and subarachnoid spaces: Normal. Cerebrum: No evidence of hemorrhage, acute infarction or mass. Cerebellum and brainstem: No evidence of hemorrhage, acute infarction or mass. CT cervical spine: There is straightening of usual cervical lordosis. There has been anterior fusion at C4-5 with plate and screws in place. No evidence of hardware failure. No acute fracture or subluxation. IMPRESSION: 1. No acute intracranial abnormality. 2. No acute fracture or subluxation of the cervical spine. 3. Left maxillary sinus mucosal thickening. . 22:20 Differential diagnosis: abrasion, closed head injury, contusion, fracture, multiple sp4 trauma. Data reviewed: vital signs, nurses notes, radiologic studies, CT scan. Consideration of Admission/Observation Escalation of care including admission/observation considered. ED course: CT today unremarkable. Hardware is intact. Patient stable for discharge home.. 04/26 04:57 Order name: CT Head C Spine sp4 Administered Medications: 05:18 Drug: HYDROcodone-acetaminophen PO 5 mg-325 mg 2 tabs PO once Route: PO; dd2 07:00 Follow up: Response: No adverse reaction; Pain is decreased rs5 05:18 Drug: Methocarbamol PO 1500 mg PO once Route: PO; dd2 07:00 Follow up: Response: No adverse reaction; Pain is decreased rs5 Disposition: 22:22 Chart complete. sp4 Disposition Summary: 04/26/24 07:24 Discharge Ordered Notes: Location: Home sp4 Problem: new sp4 Symptoms: have improved sp4 Condition: Stable sp4 Diagnosis - Acute neck injury, acute fall at home, acute posterior neck contusion sp4 Followup: sp4 - With: Private Physician - When: 7 - 10 days - Reason: Recheck today's complaints Discharge Instructions: - Discharge Summary Sheet sp4 - Neck Contusion, [id number] sp4 Forms: - Work release form sp4 - Patient Portal Instructions sp4 Prescriptions: - methocarbamol 750 mg Oral tablet - take 2 tablets ORAL route 4 times per day for 2 days PRN muscle soreness; 60 sp4 tablet; Refills: 0, Product Selection Permitted Signatures: Dispatcher [employer] EDYadira Duarte RN RN lg3 Scott Webb MD MD sp4 RIC MCRAE RN RN dd2 Moe Veliz RN rs5 Corrections: (The following items were deleted from the chart) 04:58 04:58 Head C Spine MPR Wo Con+CT.RAD.BRZ ordered. EDMS EDMS
[2024-04-26 08:07] VITALS: BP 143/86; TEMP 96.9; O2SAT 100
== END 2024-04-26 07:48 | disposition home or self-care (01) ==
LOC: ER 03:54
DX: S10.83XA Contusion of other specified part of neck, initial encounter (principal); W18.2XXA Fall in (into) shower or empty bathtub, initial encounter; Y92.002 Bathroom of unspecified non-institutional (private) residence as the place of occurrence of the external cause; F17.210 Nicotine dependence, cigarettes, uncomplicated
CPT/HCPCS: 70450; 72125; 99284

== ENCOUNTER 2024-05-15 04:31 | Emergency (ER) | payer OTHER ==
[2024-05-15] MEDS ORDERED: NA CHLORIDE 0.9% 1,000 ML ONE (11:40)
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
--- NOTE | 2024-05-17 12:00 | EKG ---
Test Date: 2024-05-15 Test Time: 04:51:36 Stone Engraver: HIEU MEASUREMENT RESULTS: Intervals: Rate: 95 PA: 134 QRSD: 96 QT: 370 QTc: 464 [place]: P: 81 PA: 134 QRS: 68 T: 72 INTERPRETIVE STATEMENTS: Normal sinus rhythm Right atrial enlargement Pulmonary disease pattern Abnormal ECG Compared to ECG 02/14/2024 03:16:12 No significant changes Electronically Signed On 05-17-24 11:57:49 [employer] by Barrie Chaidez
[2024-05-18 01:33] VITALS: BP 135/81; O2SAT 99
== END 2024-05-15 05:34 | disposition home or self-care (01) ==
LOC: ER 04:31
DX: M54.9 Dorsalgia, unspecified (principal)
CPT/HCPCS: 93005; 96372; 99284; J7030

== ENCOUNTER 2024-05-15 09:57 | Emergency (ER) | payer OTHER ==
[~2024-05-15 09:57] MED LIST changes: +ACETAMINOPHEN 500 MG TAB ONE; -HYDROCODONE/APAP 10/325 TAB ONE; +KETOROLAC 30 MG/ML INJ ONE; +LIDOCAINE 4% PATCH ONE; +methocarbamoL 500 MG TAB ONE
[2024-05-15 10:50] LABS: Absolute Basophils 0.1 K/uL (0-0.5); Absolute Eosinophils 0.1 K/uL (0-0.5); Absolute Lymphocytes (CBC) 1.6 K/uL (0.7-4.9); Absolute Monocytes 1.1 K/uL (0.1-1.3); Absolute Neutrophil 6.9 K/uL (1.8-8.0); Basophils % 0.6 % (0-1.3); Eosinophils % 1.4 % (0-4.4); Hemoglobin 16.4 g/dL (13.6-17.9); Lymphocytes % 16.1 % (15.3-44.8); MCH 29.1 pg (27.0-35.0); MCHC 34.1 g/dL (32.0-36.0); MCV 85.3 fL (80-100); MPV 7.5 fL (7.6-11.3); Monocytes % 11.3 % (3.3-12.3); Neutrophils % 70.6 % (41.7-73.7); Nucleated Red Blood Cells % 0.1 % (0-0); Platelets 327 thou/uL (152-406); RBC Red Blood Cell Count 5.63 M/uL (4.33-5.43); Red Cell Distribution Width 13.5 % (12.1-15.2)
[2024-05-15 11:05] LABS: Albumin 4.2 g/dL (3.4-5.0); Anion Gap 11.5 mEq/L (5.0-15.0); Bilirubin Total 2.2 mg/dL (0.2-1.0); Globulin 4.2 g/dL (2.3-3.5); Potassium 3.5 mEq/L (3.5-5.1); Protein, Total 8.4 g/dL (6.4-8.2)
--- NOTE | 2024-05-15 13:34 | EDPHYS ---
Physician Documentation [facility] Name: Kali Lopez Age: 38 yrs Sex: Male : 1985 Arrival Date: 05/15/2024 Time: 09:57 Bed 12 Private MD: ED Physician Eugene Almanza HPI: 05/15 13:30 This 38 yrs old Male presents to ER via Ambulatory with complaints of Weakness.rosa 13:30 The patient presents to the emergency department with weakness of the. rosa Historical: - Allergies: 10:12 Benadryl; cm10 - PMHx: 10:12 High Cholesterol; Hypertension; Migraine; cm10 - PSHx: 10:12 neck; right knee; cm10 - Immunization history:: Adult Immunizations unknown. - Infectious Disease History:: Denies. - Social history:: Smoking status: Patient reports the use of cigarette tobacco products, smokes two packs cigarettes per day. ROS: 13:30 Constitutional: Negative for fever, chills, and weight loss, Eyes: Negative for injury, rosa pain, redness, and discharge, ENT: Negative for injury, pain, and discharge, Neck: Negative for injury, pain, and swelling, Cardiovascular: Negative for chest pain, palpitations, and edema, Respiratory: Negative for shortness of breath, cough, wheezing, and pleuritic chest pain, Abdomen/GI: Negative for abdominal pain, nausea, vomiting, diarrhea, and constipation, Back: Negative for injury and pain, : Negative for injury, bleeding, discharge, and swelling, MS/Extremity: Negative for injury and deformity, Skin: Negative for injury, rash, and discoloration, Psych: Negative for depression, anxiety, suicide ideation, homicidal ideation, and hallucinations, Allergy/Immunology: Negative for hives, rash, and allergies, Endocrine: Negative for neck swelling, polydipsia, polyuria, polyphagia, and marked weight changes, Hematologic/Lymphatic: Negative for swollen nodes, abnormal bleeding, and unusual bruising, 13:30 Neuro: Positive for weakness, 13:31 Cardiovascular: Negative for chest pain, edema, orthopnea, palpitations, rosa 13:31 Respiratory: Negative for cough, dyspnea on exertion, hemoptysis, orthopnea, shortness of breath, wheezing, 13:31 MS/extremity: Negative for acute changes, Exam: 13:30 Constitutional: This is a well developed, well nourished patient who is awake, alert, rosa and in no acute distress. Head/Face: Normocephalic, atraumatic. Eyes: Pupils equal round and reactive to light, extra-ocular motions intact. Lids and lashes normal. Conjunctiva and sclera are non-icteric and not injected. Cornea within normal limits. Periorbital areas with no swelling, redness, or edema. ENT: Nares patent. No nasal discharge, no septal abnormalities noted. Tympanic membranes are normal and external auditory canals are clear. Oropharynx with no redness, swelling, or masses, exudates, or evidence of obstruction, uvula midline. Mucous membranes moist. Neck: Trachea midline, no thyromegaly or masses palpated, and no cervical lymphadenopathy. Supple, full range of motion without nuchal rigidity, or vertebral point tenderness. No Meningismus. Chest/axilla: Normal chest wall appearance and motion. Nontender with no deformity. No lesions are appreciated. Cardiovascular: Regular rate and rhythm with a normal S1 and S2. No gallops, murmurs, or rubs. Normal PMI, no JVD. No pulse deficits. Abdomen/GI: Soft, non-tender, with normal bowel sounds. No distension or tympany. No guarding or rebound. No evidence of tenderness throughout. Back: No spinal tenderness. No costovertebral tenderness. Full range of motion. Male : Normal genitalia with no discharge or lesions. Skin: Warm, dry with normal turgor. Normal color with no rashes, no lesions, and no evidence of cellulitis. MS/ Extremity: Pulses equal, no cyanosis. Neurovascular intact. Full, normal range of motion., bilateral aka Psych: Awake, alert, with orientation to person, place and time. Behavior, mood, and affect are within normal limits. 13:30 Respiratory: the patient does not display signs of respiratory distress, Respirations: normal, Breath sounds: are clear throughout, Respiratory rate: 18 13:30 Musculoskeletal/extremity: DVT Exam: No signs of deep vein thrombosis. no pain, no swelling, no tenderness, negative Homans' sign noted on exam, no appreciated bluish discoloration, no erythema, no increased warmth, Vital Signs: 10:10 BP 120 / 101; Pulse 95; Resp 18; Temp 98.5(O); Pulse Ox 100% on R/A; Weight 72.57 kg; cm10 Height 5 ft. 7 in. ; Pain 8/10; 13:47 BP 116 / 99; Pulse 84; Resp 18; Pulse Ox 100% on R/A; ld1 14:12 BP 109 / 75; Pulse 74; Resp 19; Pulse Ox 99% ; ld1 10:10 Body Mass Index 25.06 (72.57 kg, 170.18 cm) cm10 10:10 Pain Scale: Adult cm10 MDM: 10:01 Medical Screening Exam initiated rosa 13:31 Differential Diagnosis altered mental status, sepsis, flu. Data reviewed: vital signs, rosa nurses notes, lab test result(s). Consideration of Admission/Observation Escalation of care including admission/observation considered. I considered the following discharge prescriptions or medication management in the emergency department Medications were administered in the Emergency Department. See MAR. Test considered but Not performed: EKG: no ekg. Historians other than the Patient: pt well informed. Care significantly affected by the following chronic conditions: Hypertension, Obesity, migraines. Counseling: I had a detailed discussion with the patient and/or guardian regarding the historical points, exam findings, and any diagnostic results supporting the discharge/admit diagnosis, lab results, radiology results, the need for outpatient follow up, for definitive care, a family practitioner. 05/15 10:35 Order name: Comprehensive Metabolic Panel [facility] 05/15 10:35 Order name: CBC with Automated Diff [facility] 05/15 10:53 Order name: CBC with Automated Diff; Complete Time: 13:04 [facility] 05/15 11:05 Order name: Comprehensive Metabolic Panel; Complete Time: 13: [facility] 05/15 13:29 Order name: PO challenge: juice; Complete Time: 13:47 rosa Administered Medications: 11:46 Drug: NS 0.9% IV 1000 ml IV at 1 bolus Per protocol; to be given as a bolus over 60 hb minutes Route: IV; Rate: 1 bolus; Site: right antecubital; 12:46 Follow up: Response: No adverse reaction; IV Status: Completed infusion; IV Intake: ld1 1000ml Disposition Summary: 05/15/24 13:33 Discharge Ordered Notes: Location: Home rosa Problem: new rosa Symptoms: have improved rosa Condition: Stable rosa Diagnosis - Weakness rosa - Tobacco abuse counseling rosa - Tobacco use rosa Followup: rosa - With: Private Physician - When: 2 - 3 days - Reason: Recheck today's complaints, Continuance of care, Re-evaluation by your physician Followup: rosa - With: Watson Bejarano, DO - When: 2 - 3 days - Reason: Recheck today's complaints, Re-evaluation by your physician Discharge Instructions: - Discharge Summary Sheet rosa - Self-Destructive Behavior rosa - Steps to Quit Smoking rosa - Health Risks of Smoking rosa - Weakness rosa - Fatigue rosa - Steps to Quit Smoking, [id number] rosa - Weakness, [id number] rosa - Deconditioning rosa Forms: - Medication Reconciliation Form rosa - Antibiotic Education rosa - Prescription Opioid Use rosa - Patient Portal Instructions rosa - Leadership Thank You Letter rosa Signatures: Dispatcher [employer] EDEugene Cavazos MD MD cha Baxter, Heather, RN RN Gilda Tang RN RN cm10 Rajni Cross RN ld1
--- NOTE | 2024-05-15 13:34 | ER ---
Nurse's Notes [facility] Name: Kali Lopez Age: 38 yrs Sex: Male : 1985 Arrival Date: 05/15/2024 Time: 09:57 Bed 12 Private MD: Diagnosis: Weakness;Tobacco abuse counseling;Tobacco use Presentation: 05/15 10:10 Chief complaint: Patient states: Tingling to bilateral arms. Pt states that this has cm10 been going on since . Pt seen here earlier this morning for same symptoms with no relief. Coronavirus screen: Client denies travel out of the [place] in the last 14 days. Ebola Screen: Patient denies travel to an Ebola-affected area in the 21 days before illness onset. Initial Sepsis Screen: Does the patient meet any 2 criteria? HR > 90 bpm. Does the patient have a suspected source of infection? No. Patient's initial sepsis screen is negative. Risk Assessment: Do you want to hurt yourself or someone else? Patient reports no desire to harm self or others. Onset of symptoms was May 15, 2024. 10:10 Method Of Arrival: Ambulatory cm10 10:10 Acuity: SALO 3 cm10 Triage Assessment: 10:12 General: Appears in no apparent distress. uncomfortable, Behavior is calm, cooperative. cm10 Neuro: No deficits noted. Level of Consciousness is awake, alert, obeys commands, Oriented to person, place, time, situation, Appropriate for age. Respiratory: No deficits noted. Airway is patent Respiratory effort is even, unlabored, Respiratory pattern is regular, symmetrical. Historical: - Allergies: 10:12 Benadryl; cm10 - PMHx: 10:12 High Cholesterol; Hypertension; Migraine; cm10 - PSHx: 10:12 neck; right knee; cm10 - Immunization history:: Adult Immunizations unknown. - Infectious Disease History:: Denies. - Social history:: Smoking status: Patient reports the use of cigarette tobacco products, smokes two packs cigarettes per day. Screenin:47 [facility] ED Fall Risk Assessment (Adult) History of falling in the last 3 months, ld1 including since admission No falls in past 3 months (0 pts) Confusion or Disorientation No (0 pts) Intoxicated or Sedated No (0 pts) Impaired Gait No (0 pts) Mobility Assist Device Used No (0 pt) Altered Elimination No (0 pt) Score/Fall Risk Level 0 - 2 = Low Risk Oriented to surroundings, Maintained a safe environment, Educated pt \T\ family on fall prevention, incl call for assistance when getting out of bed, Assessed \T\ reinforced patient's understanding of fall precautions, Provided non-skid footwear, Hourly rounding (assess needs \T\ fall precautionary measures) done, Used ambulatory aids as needed (educated on \T\ assisted with), Used gait belt as appropriate. Abuse screen: Denies threats or abuse. Denies injuries from another. Nutritional screening: No deficits noted. Tuberculosis screening: No symptoms or risk factors identified. Assessment: 13:47 General: Appears in no apparent distress. comfortable, Behavior is calm, cooperative, ld1 appropriate for age. Pain: Denies pain. Neuro: Level of Consciousness is awake, alert, obeys commands, Oriented to person, place, time, situation. Cardiovascular: Capillary refill < 3 seconds Patient's skin is warm and dry. Respiratory: Airway is patent Respiratory effort is even, unlabored. GI: Abdomen is flat, non-distended. : No signs and/or symptoms were reported regarding the genitourinary system. EENT: No signs and/or symptoms were reported regarding the EENT system. Derm: No signs and/or symptoms reported regarding the dermatologic system. Musculoskeletal: No signs and/or symptoms reported regarding the musculoskeletal system. Vital Signs: 10:10 BP 120 / 101; Pulse 95; Resp 18; Temp 98.5(O); Pulse Ox 100% on R/A; Weight 72.57 kg; cm10 Height 5 ft. 7 in. ; Pain 8/10; 13:47 BP 116 / 99; Pulse 84; Resp 18; Pulse Ox 100% on R/A; ld1 14:12 BP 109 / 75; Pulse 74; Resp 19; Pulse Ox 99% ; ld1 10:10 Body Mass Index 25.06 (72.57 kg, 170.18 cm) cm10 10:10 Pain Scale: Adult cm10 ED Course: 09:59 Patient arrived in ED. ra3 10:01 Eugene Almanza MD is Attending Physician. rosa 10:12 Triage completed. cm10 10:12 Arm band placed on right wrist. Patient placed in waiting room. cm10 10:25 Comprehensive Metabolic Panel Sent. bc6 10:25 CBC with Diff Sent. bc6 10:25 Initial lab(s) drawn, by wv, sent to lab. Inserted saline lock: 20 gauge in right bc6 forearm, using aseptic technique. Blood collected. Flushed with 10 mL NS. 13:33 Watson Bejarano DO is Referral Physician. [facility] 13:47 Rajni Cross, RN is Primary Nurse. ld1 13:47 Patient has correct armband on for positive identification. Placed in gown. Bed in low ld1 position. Call light in reach. Side rails up X2. splicer operator on. Pulse ox on. NIBP on. Door closed. Noise minimized. Warm blanket given. 13:47 No provider procedures requiring assistance completed. ld1 14:13 Provided Education on: discharge. ld1 14:13 IV discontinued, intact, bleeding controlled, No redness/swelling at site. Pressure ld1 dressing applied. Administered Medications: 11:46 Drug: NS 0.9% IV 1000 ml IV at 1 bolus Per protocol; to be given as a bolus over 60 hb minutes Route: IV; Rate: 1 bolus; Site: right antecubital; 12:46 Follow up: Response: No adverse reaction; IV Status: Completed infusion; IV Intake: ld1 1000ml Medication: 13:47 VIS not applicable for this client. ld1 Intake: 12:46 IV: 1000ml; Total: 1000ml. ld1 Outcome: 13:33 Discharge ordered by . [facility] 14:13 Discharged to home ambulatory, ld1 14:13 Condition: stable 14:13 Discharge instructions given to patient, Instructed on discharge instructions, follow up and referral plans. Demonstrated understanding of instructions, follow-up care, 14:15 Patient left the ED. ld1 Signatures: Eugene Almanza MD MD cha Baxter, Heather, RN RN Rajni Cross, RN RN ld1 Sandra Aguiar 6 Gilda Tang, ELLEN RN 10 Cyndey Vincent 3
[2024-05-18 01:23] VITALS: BP 109/75; TEMP 98.5; O2SAT 99
== END 2024-05-15 14:15 | disposition home or self-care (01) ==
LOC: ER 09:57
DX: R53.1 Weakness (principal); Z72.0 Tobacco use; Z71.6 Tobacco abuse counseling
CPT/HCPCS: 85025; 36415; 80053; 96360; 99285; J2003

== ENCOUNTER 2024-06-11 04:43 | Emergency (ER) | payer OTHER ==
[2024-06-11] MEDS ORDERED: KETOROLAC 30 MG/ML INJ ONE (05:21)
[2024-06-11] MEDS ORDERED: METOCLOPRAMIDE 10 MG/2mL INJ ONE (05:22)
[2024-06-11] MEDS ORDERED: NA CHLORIDE 0.9% 1,000 ML ONE (05:22)
[2024-06-11] MEDS ORDERED: MORPHINE 4 MG/ML SYR ONE (05:22)
[2024-06-11 05:36] LABS: Absolute Basophils 0.2 K/uL (0-0.5); Absolute Eosinophils 0.1 K/uL (0-0.5); Absolute Lymphocytes (CBC) 2.7 K/uL (0.7-4.9); Absolute Monocytes 1.3 K/uL (0.1-1.3); Absolute Neutrophil 9.9 K/uL (1.8-8.0); Basophils % 1.2 % (0-1.3); Hematocrit 44.9 % (39.6-49.0); Hemoglobin 14.9 g/dL (13.6-17.9); MCH 28.6 pg (27.0-35.0); MCHC 33.2 g/dL (32.0-36.0); MCV 86.1 fL (80-100); MPV 7.7 fL (7.6-11.3); Neutrophils % 69.8 % (41.7-73.7); Nucleated Red Blood Cells % 0.1 % (0-0); Platelets 323 thou/uL (152-406); RBC Red Blood Cell Count 5.22 M/uL (4.33-5.43); Red Cell Distribution Width 13.8 % (12.1-15.2)
[2024-06-11 05:51] LABS: Albumin 3.6 g/dL (3.4-5.0); Albumin/Globulin Ratio 0.9 (1.1-1.8); Anion Gap 10.2 mEq/L (5.0-15.0); Bilirubin Total 0.8 mg/dL (0.2-1.0); Globulin 3.9 g/dL (2.3-3.5); Potassium 3.2 mEq/L (3.5-5.1); Protein, Total 7.5 g/dL (6.4-8.2)
--- NOTE | 2024-06-11 07:08 | RAD REPORT ---
CT HEAD WITHOUT IV CONTRAST, CT HEAD ANGIOGRAPHY WITH IV CONTRAST, CT NECK ANGIOGRAPHY WITH IV CONTRA ST CLINICAL INDICATION: Headache COMPARISON: None. TECHNIQUE: CT HEAD: CT images of the head were obtained without intravenous contrast. Multiplanar reformats were provided. CTA HEAD/NECK: Following intravenous contrast administration, helical CT images were obtained through the head and neck during the arterial phase. Multiplanar 3D/MIP and MPR reconstructions were provided. Dose lowering technique(s) such as automated exposure control, iterative reconstruction, mA and/or KV adjustment for patient's size was utilized for this examination. FINDINGS: CT HEAD: There is no acute intracranial hemorrhage, acute territorial infarct, mass effect, midline shift or e xtra-axial collection. Anderson-white matter differentiation is maintained. Ventricles are normal in size for patient's age. No acute calvarial fracture. Trace mucosal thickening and small mucous retention cyst versus polyp in left maxillary sinus. Parana denys sinuses, mastoid air cells and middle ear cavities are well aerated. Mild mucosal thickening of left nasal cavity. Orbits are unremarkable. CTA HEAD: POSTERIOR CIRCULATION: Vertebral artery dominance: Codominant Right vertebral artery: No significant stenosis. No aneurysm. Left vertebral artery: No significant stenosis. No aneurysm. Basilar artery: No significant stenosis. No aneurysm. Posterior cerebral arteries: No significant stenosis. No aneurysm. ANTERIOR CIRCULATION: Right ICA: No significant stenosis. No aneurysm. Right MCA: No significant stenosis. No aneurysm. Right JOSE: No significant stenosis. No aneurysm. Left ICA: No significant stenosis. No aneurysm. Left MCA: No significant stenosis. No aneurysm. Left JOSE: No significant stenosis. No aneurysm. CTA NECK: Aortic arch: Left aortic arch with classic three-vessel branching pattern. No aneurysm or dissection. Vertebral arteries: No aneurysm or dissection. Right CCA: No hemodynamically significant stenosis. No aneurysm or dissection. Right ICA: No hemodynamically significant stenosis. No aneurysm or dissection. Right ECA: No aneurysm or dissection. Left CCA: No hemodynamically significant stenosis. No aneurysm or dissection. Left ICA: No hemodynamically significant stenosis. No aneurysm or dissection. Left ECA: No aneurysm or dissection. Measurement of carotid stenosis is based on criteria described in the [place] Symptomatic Anand tid Endarterectomy Trial (NASCET). NASCET criteria for estimating stenosis compares the normal distal ICA diameter with the standard proximal ICA diameter. Lung apices: Clear. Bones: No acute or destructive osseous lesion. Status post previous anterior cervical fusion of C4-5. Soft tissues: Mild palatine tonsillar hypertrophy, encroaching the oropharyngeal airway. No peritonsi llar collection. Other: None. IMPRESSION: 1. No acute intracranial abnormality. 2. Negative CTA head and neck. Electronically signed by: Jeannette Gonzalez MD 06/11/2024 07:05 AM [facility] Due to temporary technical issues with the PACS/[employer] reporting system, reports are being tito d by the in-house radiologist without review as a courtesy to ensure prompt reporting the interpreting radiologist is fully responsible for the content of the report. Transcribed Date/Time: 06/11/2024 7:08 AM
--- NOTE | 2024-06-11 07:08 | RAD REPORT ---
CT HEAD WITHOUT IV CONTRAST, CT HEAD ANGIOGRAPHY WITH IV CONTRAST, CT NECK ANGIOGRAPHY WITH IV CONTRA ST CLINICAL INDICATION: Headache COMPARISON: None. TECHNIQUE: CT HEAD: CT images of the head were obtained without intravenous contrast. Multiplanar reformats were provided. CTA HEAD/NECK: Following intravenous contrast administration, helical CT images were obtained through the head and neck during the arterial phase. Multiplanar 3D/MIP and MPR reconstructions were provided. Dose lowering technique(s) such as automated exposure control, iterative reconstruction, mA and/or KV adjustment for patient's size was utilized for this examination. FINDINGS: CT HEAD: There is no acute intracranial hemorrhage, acute territorial infarct, mass effect, midline shift or e xtra-axial collection. Anderson-white matter differentiation is maintained. Ventricles are normal in size for patient's age. No acute calvarial fracture. Trace mucosal thickening and small mucous retention cyst versus polyp in left maxillary sinus. Parana denys sinuses, mastoid air cells and middle ear cavities are well aerated. Mild mucosal thickening of left nasal cavity. Orbits are unremarkable. CTA HEAD: POSTERIOR CIRCULATION: Vertebral artery dominance: Codominant Right vertebral artery: No significant stenosis. No aneurysm. Left vertebral artery: No significant stenosis. No aneurysm. Basilar artery: No significant stenosis. No aneurysm. Posterior cerebral arteries: No significant stenosis. No aneurysm. ANTERIOR CIRCULATION: Right ICA: No significant stenosis. No aneurysm. Right MCA: No significant stenosis. No aneurysm. Right JOSE: No significant stenosis. No aneurysm. Left ICA: No significant stenosis. No aneurysm. Left MCA: No significant stenosis. No aneurysm. Left JOSE: No significant stenosis. No aneurysm. CTA NECK: Aortic arch: Left aortic arch with classic three-vessel branching pattern. No aneurysm or dissection. Vertebral arteries: No aneurysm or dissection. Right CCA: No hemodynamically significant stenosis. No aneurysm or dissection. Right ICA: No hemodynamically significant stenosis. No aneurysm or dissection. Right ECA: No aneurysm or dissection. Left CCA: No hemodynamically significant stenosis. No aneurysm or dissection. Left ICA: No hemodynamically significant stenosis. No aneurysm or dissection. Left ECA: No aneurysm or dissection. Measurement of carotid stenosis is based on criteria described in the [place] Symptomatic Anand tid Endarterectomy Trial (NASCET). NASCET criteria for estimating stenosis compares the normal distal ICA diameter with the standard proximal ICA diameter. Lung apices: Clear. Bones: No acute or destructive osseous lesion. Status post previous anterior cervical fusion of C4-5. Soft tissues: Mild palatine tonsillar hypertrophy, encroaching the oropharyngeal airway. No peritonsi llar collection. Other: None. IMPRESSION: 1. No acute intracranial abnormality. 2. Negative CTA head and neck. Electronically signed by: Jeannette Gonzalez MD 06/11/2024 07:05 AM [facility] Due to temporary technical issues with the PACS/[employer] reporting system, reports are being tito d by the in-house radiologist without review as a courtesy to ensure prompt reporting the interpreting radiologist is fully responsible for the content of the report. Transcribed Date/Time: 06/11/2024 7:08 AM
--- NOTE | 2024-06-11 07:08 | RAD REPORT ---
CT HEAD WITHOUT IV CONTRAST, CT HEAD ANGIOGRAPHY WITH IV CONTRAST, CT NECK ANGIOGRAPHY WITH IV CONTRA ST CLINICAL INDICATION: Headache COMPARISON: None. TECHNIQUE: CT HEAD: CT images of the head were obtained without intravenous contrast. Multiplanar reformats were provided. CTA HEAD/NECK: Following intravenous contrast administration, helical CT images were obtained through the head and neck during the arterial phase. Multiplanar 3D/MIP and MPR reconstructions were provided. Dose lowering technique(s) such as automated exposure control, iterative reconstruction, mA and/or KV adjustment for patient's size was utilized for this examination. FINDINGS: CT HEAD: There is no acute intracranial hemorrhage, acute territorial infarct, mass effect, midline shift or e xtra-axial collection. Anderson-white matter differentiation is maintained. Ventricles are normal in size for patient's age. No acute calvarial fracture. Trace mucosal thickening and small mucous retention cyst versus polyp in left maxillary sinus. Parana denys sinuses, mastoid air cells and middle ear cavities are well aerated. Mild mucosal thickening of left nasal cavity. Orbits are unremarkable. CTA HEAD: POSTERIOR CIRCULATION: Vertebral artery dominance: Codominant Right vertebral artery: No significant stenosis. No aneurysm. Left vertebral artery: No significant stenosis. No aneurysm. Basilar artery: No significant stenosis. No aneurysm. Posterior cerebral arteries: No significant stenosis. No aneurysm. ANTERIOR CIRCULATION: Right ICA: No significant stenosis. No aneurysm. Right MCA: No significant stenosis. No aneurysm. Right JOSE: No significant stenosis. No aneurysm. Left ICA: No significant stenosis. No aneurysm. Left MCA: No significant stenosis. No aneurysm. Left JOSE: No significant stenosis. No aneurysm. CTA NECK: Aortic arch: Left aortic arch with classic three-vessel branching pattern. No aneurysm or dissection. Vertebral arteries: No aneurysm or dissection. Right CCA: No hemodynamically significant stenosis. No aneurysm or dissection. Right ICA: No hemodynamically significant stenosis. No aneurysm or dissection. Right ECA: No aneurysm or dissection. Left CCA: No hemodynamically significant stenosis. No aneurysm or dissection. Left ICA: No hemodynamically significant stenosis. No aneurysm or dissection. Left ECA: No aneurysm or dissection. Measurement of carotid stenosis is based on criteria described in the [place] [employer] Symptomatic Anand tid Endarterectomy Trial (NASCET). NASCET criteria for estimating stenosis compares the normal distal ICA diameter with the standard proximal ICA diameter. Lung apices: Clear. Bones: No acute or destructive osseous lesion. Status post previous anterior cervical fusion of C4-5. Soft tissues: Mild palatine tonsillar hypertrophy, encroaching the oropharyngeal airway. No peritonsi llar collection. Other: None. IMPRESSION: 1. No acute intracranial abnormality. 2. Negative CTA head and neck. Electronically signed by: Jeannette Gonzalez MD 06/11/2024 07:05 AM [facility] Due to temporary technical issues with the PACS/Dropcam reporting system, reports are being tito d by the in-house radiologist without review as a courtesy to ensure prompt reporting the interpreting radiologist is fully responsible for the content of the report. Transcribed Date/Time: 06/11/2024 7:08 AM
--- NOTE | 2024-06-11 07:14 | EDPHYS ---
Physician Documentation [facility] Name: Kali Lopez Age: 38 yrs Sex: Male : 1985 Arrival Date: 06/11/2024 Time: 04:43 Bed 6 Private MD: ED Physician Rodger Sanz HPI: 06/11 05:20 This 38 yrs old Male presents to ER via Unassigned with complaints of rosa Headache, Stiff Neck. 05:20 The patient complains of pain to the top of head, forehead, right presybeterian, right frontal rosa area, right side of the back of head, right occipital area and right base of the skull. The patient describes the headache as constant. Onset: The symptoms/episode began/occurred gradually. Associated signs and symptoms: Pertinent positives: This patient does not have any pertinent positive signs or symptoms associated with a headache. Severity of symptoms: At its worst the pain was moderate, in the emergency department the pain is unchanged. Headache History: The patient has had previous headaches and this one is similar to previous episodes. The symptoms are alleviated by. The patient has experienced similar episodes in the past, a few times. Historical: - Allergies: 05:32 Benadryl; br2 - PMHx: 05:32 High Cholesterol; Hypertension; Migraine; br2 - PSHx: 05:32 neck; right knee; br2 - Immunization history:: Adult Immunizations not up to date. - Infectious Disease History:: Denies. - Family history:: not pertinent. - Social history:: Smoking status: . ROS: 05:20 Constitutional: Negative for fever, chills, and weight loss, Eyes: Negative for injury, rosa pain, redness, and discharge, ENT: Negative for injury, pain, and discharge, Neck: Negative for injury, pain, and swelling, Cardiovascular: Negative for chest pain, palpitations, and edema, Respiratory: Negative for shortness of breath, cough, wheezing, and pleuritic chest pain, Abdomen/GI: Negative for abdominal pain, nausea, vomiting, diarrhea, and constipation, Back: Negative for injury and pain, : Negative for injury, bleeding, discharge, and swelling, MS/Extremity: Negative for injury and deformity, Skin: Negative for injury, rash, and discoloration, Allergy/Immunology: Negative for hives, rash, and allergies, Endocrine: Negative for neck swelling, polydipsia, polyuria, polyphagia, and marked weight changes, Hematologic/Lymphatic: Negative for swollen nodes, abnormal bleeding, and unusual bruising, 05:20 Neuro: Positive for headache, neck tightness, Exam: 05:20 Constitutional: This is a well developed, well nourished patient who is awake, alert, rosa and in no acute distress. Head/Face: Normocephalic, atraumatic. Eyes: Pupils equal round and reactive to light, extra-ocular motions intact. Lids and lashes normal. Conjunctiva and sclera are non-icteric and not injected. Cornea within normal limits. Periorbital areas with no swelling, redness, or edema. ENT: Nares patent. No nasal discharge, no septal abnormalities noted. Tympanic membranes are normal and external auditory canals are clear. Oropharynx with no redness, swelling, or masses, exudates, or evidence of obstruction, uvula midline. Mucous membranes moist. Neck: Trachea midline, no thyromegaly or masses palpated, and no cervical lymphadenopathy. Supple, full range of motion without nuchal rigidity, or vertebral point tenderness. No Meningismus. Chest/axilla: Normal chest wall appearance and motion. Nontender with no deformity. No lesions are appreciated. Cardiovascular: Regular rate and rhythm with a normal S1 and S2. No gallops, murmurs, or rubs. Normal PMI, no JVD. No pulse deficits. Respiratory: Lungs have equal breath sounds bilaterally, clear to auscultation and percussion. No rales, rhonchi or wheezes noted. No increased work of breathing, no retractions or nasal flaring. Abdomen/GI: Soft, non-tender, with normal bowel sounds. No distension or tympany. No guarding or rebound. No evidence of tenderness throughout. Back: No spinal tenderness. No costovertebral tenderness. Full range of motion. Skin: Warm, dry with normal turgor. Normal color with no rashes, no lesions, and no evidence of cellulitis. MS/ Extremity: Pulses equal, no cyanosis. Neurovascular intact. Full, normal range of motion., bilateral aka Neuro: Awake and alert, GCS 15, oriented to person, place, time, and situation. Cranial nerves II-XII grossly intact. Motor strength 5/5 in all extremities. Sensory grossly intact. Cerebellar exam normal. Normal gait. Psych: Awake, alert, with orientation to person, place and time. Behavior, mood, and affect are within normal limits. 05:20 Neck: External neck: is normal, C-spine: appears grossly normal, no acute changes, ROM/movement: limited range of motion, is not appreciated, Meningeal signs: are not present, nuchal rigidity, is not appreciated, Lymph nodes: no appreciated lymphadenopathy, 06:23 Neck: ROM/movement: limited range of motion, Meningeal signs: Kernig's sign is rosa negative, Brudzinski's sign is negative, nuchal rigidity, Vital Signs: 04:52 BP 148 / 103; Pulse 75; Resp 19 S; Temp 97(O); Pulse Ox 97% on R/A; Weight 68.04 kg; ha1 Height 5 ft. 7 in. ; Pain 10/10; 06:07 BP 129 / 86; Pulse 66; Resp 18 S; Pulse Ox 98% on R/A; br2 07:22 BP 123 / 92; Pulse 72; Resp 17; Temp 97.2(TE); Pulse Ox 99% on R/A; ap3 04:52 Body Mass Index 23.49 (68.04 kg, 170.18 cm) ha1 04:52 Pain Scale: Adult ha1 Daphne Coma Score: 05:22 Eye Response: spontaneous(4). Motor Response: obeys commands(6). Verbal Response: rosa oriented(5). Total: 15. MDM: 05:05 Medical Screening Exam initiated rosa 05:22 Differential diagnosis: cervical epidural bleed, cluster headache, hypertensive rosa headache, hypoglycemia, hyponatremia, meningitis, migraine, neoplasm, subarachnoid bleed, subdural hematoma. Data reviewed: vital signs, nurses notes, lab test result(s), radiologic studies, CT scan. Consideration of Admission/Observation Escalation of care including admission/observation considered. I considered the following discharge prescriptions or medication management in the emergency department Medications were administered in the Emergency Department. See MAR. Independent interpretation of the following test(s) in the Emergency Department CT Scan: My interpretation is ct head , cta head and neck. Historians other than the Patient: Family Member: family present. Care significantly affected by the following chronic conditions: headaches. 07:38 Counseling: I had a detailed discussion with the patient and/or guardian regarding the rt historical points, exam findings, and any diagnostic results supporting the discharge/admit diagnosis, lab results, radiology results, the need for outpatient follow up. Response to treatment: the patient's symptoms have markedly improved after treatment. 07:38 Test considered but Not performed: Other Details Patient is febrile, presentation not rt consistent with meningitis, encephalitis. Patient has a history of chronic neck issues, suspect this is the etiology of the neck pain. Do not believe that lumbar puncture is indicated. 06/11 05:09 Order name: CBC with Diff; Complete Time: 06:22 [facility] 06/11 05:09 Order name: Comprehensive Metabolic Panel; Complete Time: 06:22 [facility] 06/11 05:09 Order name: CT Head Brain wo Cont [facility] 06/11 05:09 Order name: CT Head Angio [facility] 06/11 05:09 Order name: CT Neck Angio [facility] 06/11 06:23 Order name: PO challenge: JUICE; Complete Time: 06:35 [facility] Administered Medications: 05:30 Drug: Ketorolac IVP 30 mg IVP once Route: IVP; Site: right antecubital; br2 07:23 Follow up: Response: No adverse reaction; Pain is decreased ap3 05:30 Drug: metoCLOPramide IVP 10 mg IVP once; over 1 to 2 minutes Route: IVP; Site: right br2 antecubital; 07:23 Follow up: Response: No adverse reaction ap3 05:30 Drug: morphine IVP or IV 4 mg IVP once over 4 mins Route: IVP; Infused Over: 4 mins; br2 Site: right antecubital; 07:23 Follow up: Response: No adverse reaction; Pain is decreased ap3 05:31 Drug: NS 0.9% IV 1000 ml IV at 1000 ml once; to be given as a bolus over 60 minutes br2 Route: IV; Rate: 1000 ml; Site: right antecubital; 07:23 Follow up: IV Status: Completed infusion; IV Intake: 1000ml ap3 Disposition Summary: 06/11/24 07:12 Discharge Ordered Notes: Location: Home rt Problem: new rt Symptoms: have improved rt Condition: Stable rt Diagnosis - Headache rt - Episodic tension-type headache rt Followup: rosa - With: Private Physician - When: 2 - 3 days - Reason: Recheck today's complaints, Re-evaluation by your physician Followup: rosa - With: Elver Napier MD - When: 2 - 3 days - Reason: Recheck today's complaints, Re-evaluation by your physician Discharge Instructions: - Discharge Summary Sheet rosa - General Headache Without Cause rosa - General Headache Without Cause, [id number] rosa Forms: - Work release form ap3 - Family Work Release ap3 - Medication Reconciliation Form rt - Antibiotic Education rt - Prescription Opioid Use rt - Patient Portal Instructions rt - Leadership Thank You Letter rt Prescriptions: - ondansetron 4 mg Oral Tablet,disintegrating - take 1 tablet ORAL route every 6-8 hours for 5 days prn nausea/vomiting; 20 rosa tablet; Refills: 0, Product Selection Permitted - Diclofenac Sodium 75 mg Oral tablet, delayed release (enteric coated) - take 1 tablet ORAL route 2 times per day; 20 tablet; Refills: 0, Product rosa Selection Permitted - Cyclobenzaprine 10 mg Oral tablet - take 1 tablet ORAL route every 8 hours As needed; 15 tablet; Refills: 0, rt Product Selection Permitted Signatures: Dispatcher [employer] EDMS Eugene Almanza MD MD cha [place], Ryan, MD MD rt Renetta Rosenthal RN RN br2 Martina Robbins RN ap3 Corrections: (The following items were deleted from the chart) 05:09 05:09 CBC+H.LAB.BRZ ordered. EDMS EDMS 05:09 05:09 COMPREHENSIVE METABOLIC PANEL+C.LAB.BRZ ordered. EDMS EDMS 05:09 05:09 Head Brain Wo Cont+CT.RAD.BRZ ordered. EDMS EDMS 05:09 05:09 Head Angio+CT.RAD.BRZ ordered. EDMS EDMS 05:10 05:09 Neck Angio+CT.RAD.BRZ ordered. EDMS EDMS
--- NOTE | 2024-06-11 07:14 | ER ---
Nurse's Notes [facility] Name: Kali Lopez Age: 38 yrs Sex: Male : 1985 Arrival Date: 06/11/2024 Time: 04:43 Bed 6 Private MD: Diagnosis: Headache;Episodic tension-type headache Presentation: 06/11 04:52 Chief complaint: Patient states: NECK PAIN AND HEADACHE. ha1 04:52 Coronavirus screen: Client denies travel out of the [place] in the last 14 days. Ebola ha1 Screen: No symptoms or risks identified at this time. Initial Sepsis Screen: Does the patient meet any 2 criteria? No. Patient's initial sepsis screen is negative. Does the patient have a suspected source of infection? No. Patient's initial sepsis screen is negative. Risk Assessment: Do you want to hurt yourself or someone else? Patient reports no desire to harm self or others. Onset of symptoms was June 11, 2024. 04:52 Method Of Arrival: Ambulatory ha1 04:52 Acuity: SALO 3 ha1 Triage Assessment: 04:52 Headache History: The patient has had previous headaches and this one is similar to ha1 previous episodes. General: Appears uncomfortable, Behavior is cooperative. Pain: Complains of pain in HEAD Pain radiates to NECK Pain currently is 10 out of 10 on a pain scale. Pain began gradually. Neuro: Level of Consciousness is awake, alert, obeys commands, Oriented to person, place, time, situation. Cardiovascular: Capillary refill < 3 seconds Patient's skin is warm and dry. Respiratory: Airway is patent Respiratory effort is even, unlabored, Respiratory pattern is regular, symmetrical. GI: No signs and/or symptoms were reported involving the gastrointestinal system. : No signs and/or symptoms were reported regarding the genitourinary system. Derm: Skin is pink, warm \T\ dry. Musculoskeletal: Circulation, motion, and sensation intact. Range of motion: intact in all extremities. 07:22 Pain: Also complains of no other associated symptoms. ap3 Historical: - Allergies: 05:32 Benadryl; br2 - PMHx: 05:32 High Cholesterol; Hypertension; Migraine; br2 - PSHx: 05:32 neck; right knee; br2 - Immunization history:: Adult Immunizations not up to date. - Infectious Disease History:: Denies. - Family history:: not pertinent. - Social history:: Smoking status: . Screenin:32 [facility] ED Fall Risk Assessment (Adult) History of falling in the last 3 months, br2 including since admission No falls in past 3 months (0 pts) Confusion or Disorientation No (0 pts) Intoxicated or Sedated No (0 pts) Impaired Gait No (0 pts) Mobility Assist Device Used No (0 pt) Altered Elimination No (0 pt) Score/Fall Risk Level 0 - 2 = Low Risk. Abuse screen: Denies threats or abuse. Denies injuries from another. Nutritional screening: No deficits noted. Tuberculosis screening: No symptoms or risk factors identified. Assessment: 04:45 Reassessment: Patient and/or family updated on plan of care and expected duration. Pain br2 level reassessed. Patient is alert, oriented x 3, equal unlabored respirations, skin warm/dry/pink. General: Appears uncomfortable, Behavior is calm, cooperative. Pain: Complains of pain in forehead. Neuro: Diamond Agitation-Sedation Scale (RASS): 0 - Alert and Calm Level of Consciousness is awake, alert. Respiratory: Airway is patent Respiratory effort is even, unlabored, Respiratory pattern is regular, symmetrical. 07:11 Reassessment: Patient states symptoms have improved. General: Appears in no apparent ap3 distress. comfortable, Behavior is calm, cooperative. Neuro: Level of Consciousness is awake, alert, obeys commands, Oriented to person, place, time, situation, Appropriate for age Speech is normal. Cardiovascular: Patient's skin is warm and dry. Respiratory: Airway is patent Respiratory effort is even, unlabored, Respiratory pattern is regular, symmetrical. Vital Signs: 04:52 BP 148 / 103; Pulse 75; Resp 19 S; Temp 97(O); Pulse Ox 97% on R/A; Weight 68.04 kg; ha1 Height 5 ft. 7 in. ; Pain 10/10; 06:07 BP 129 / 86; Pulse 66; Resp 18 S; Pulse Ox 98% on R/A; br2 07:22 BP 123 / 92; Pulse 72; Resp 17; Temp 97.2(TE); Pulse Ox 99% on R/A; ap3 04:52 Body Mass Index 23.49 (68.04 kg, 170.18 cm) ha1 04:52 Pain Scale: Adult ha1 Daphne Coma Score: 05:22 Eye Response: spontaneous(4). Motor Response: obeys commands(6). Verbal Response: rosa oriented(5). Total: 15. ED Course: 04:44 Patient arrived in ED. [email or web address] 04:45 Arm band placed on right wrist. br2 05:05 Eugene Almanza MD is Attending Physician. rosa 05:16 Renetta Rosenthal, RN is Primary Nurse. br2 05:32 Bed in low position. Call light in reach. Side rails up X 1. Provided Education on: br2 PLAN OF CARE. 05:32 Inserted saline lock: 20 gauge in right antecubital area, using aseptic technique. br2 Blood collected. Flushed with 10 mL NS. 05:52 Triage completed. ha1 06:31 CT Head Brain wo Cont In Process Unspecified. EDMS 06:31 CT Head Angio In Process Unspecified. EDMS 06:31 CT Neck Angio In Process Unspecified. EDMS 07:01 Attending Physician role handed off by Eugene Almanza MD rt 07:01 Rodger Sanz MD is Attending Physician. rt 07:12 Elver Napier MD is Referral Physician. rt 07:22 No provider procedures requiring assistance completed. IV discontinued, intact, ap3 bleeding controlled, No redness/swelling at site. Pressure dressing applied. Administered Medications: 05:30 Drug: Ketorolac IVP 30 mg IVP once Route: IVP; Site: right antecubital; br2 07:23 Follow up: Response: No adverse reaction; Pain is decreased ap3 05:30 Drug: metoCLOPramide IVP 10 mg IVP once; over 1 to 2 minutes Route: IVP; Site: right br2 antecubital; 07:23 Follow up: Response: No adverse reaction ap3 05:30 Drug: morphine IVP or IV 4 mg IVP once over 4 mins Route: IVP; Infused Over: 4 mins; br2 Site: right antecubital; 07:23 Follow up: Response: No adverse reaction; Pain is decreased ap3 05:31 Drug: NS 0.9% IV 1000 ml IV at 1000 ml once; to be given as a bolus over 60 minutes br2 Route: IV; Rate: 1000 ml; Site: right antecubital; 07:23 Follow up: IV Status: Completed infusion; IV Intake: 1000ml ap3 Medication: 05:32 VIS not applicable for this client. br2 Intake: 07:23 IV: 1000ml; Total: 1000ml. ap3 Outcome: 07:12 Discharge ordered by . rt 07:22 Discharged to home ambulatory, with family, ap3 07:22 Condition: good 07:22 Discharge instructions given to patient, Instructed on discharge instructions, follow up and referral plans. medication usage, Demonstrated understanding of instructions, follow-up care, medications, Prescriptions given X 3, 07:23 Patient left the ED. ap3 Signatures: Dispatcher [employer] EDMS Eugene Almanza MD MD cha Prokisch, Amanda RN RN ap3 Gricelda [id number] Ying Lehman, RN RN reed1 Rodger Sanz MD MD rt Riddle, Belinda RN RN br2
[2024-06-11 07:45] VITALS: BP 123/92; TEMP 97.2; O2SAT 99
== END 2024-06-11 07:23 | disposition home or self-care (01) ==
LOC: ER 04:43
DX: G44.219 Episodic tension-type headache, not intractable (principal)
CPT/HCPCS: 85025; 36415; 80053; 70450; 70496; 70498; Q9967; J2765; J7030; 96361; 96374; 96375; 99284

== ENCOUNTER 2024-07-11 11:20 | Emergency (ER) | payer OTHER ==
[2024-07-11] MEDS ORDERED: METOCLOPRAMIDE 10 MG/2mL INJ ONE (12:16)
[2024-07-11] MEDS ORDERED: ONDANSETRON 4 MG/2 ML VIAL ONE (12:16)
[2024-07-11] MEDS ORDERED: MORPHINE 4 MG/ML SYR ONE (12:17)
[2024-07-11] MEDS ORDERED: NA CHLORIDE 0.9% 1,000 ML ONE (12:17)
--- NOTE | 2024-07-11 12:50 | RAD REPORT ---
EXAM: CT brain without contrast HISTORY: headache, neck pain, radiation to left arm COMPARISON: None TECHNIQUE: Multiple contiguous axial images were obtained and a CT of the brain without contrast. Sag ittal and coronal reformats were performed. FINDINGS: No evidence of hydrocephalus, intracranial hemorrhage, or extra-axial fluid collection. The brain is normal in morphology. The calvarium is intact. Mild scattered inflammatory mucosal thickening within the paranasal sinuses. Mastoid air cells are essentially clear. IMPRESSION: No evidence of acute intracranial abnormality. EXAM: CT of the cervical spine without contrast HISTORY: headache, neck pain, radiation to left arm COMPARISON: None TECHNIQUE: Multiple contiguous axial images were obtained in a CT of the cervical spine without contr ast. Sagittal and coronal reformats were performed. FINDINGS: The vertebral bodies demonstrate normal height and alignment. Anterior plating hardware at C4-5. No evidence of acute fracture or subluxation.. No degenerative changes are present. No prevertebral soft tissue swelling is seen. The posterior facets are well aligned. Normal alignment of the skull base with the cervical spine is seen. The lung apices are unremarkable. IMPRESSION: No evidence of acute osseous abnormality of the cervical spine.
--- NOTE | 2024-07-11 13:44 | EDPHYS ---
Physician Documentation [facility] – [place], [place] Name: Kali Lopez Age: 38 yrs Sex: Male : 1985 Arrival Date: 07/11/2024 Time: 11:20 Bed 24 Private MD: ED Physician Miquel Garcia HPI: 07/11 12:24 This 38 yrs old Male presents to ER via Ambulatory with complaints of rn Weakness, Headache. 12:24 The patient complains of pain to the top of head and forehead. The patient describes rn the headache as aching. Onset: The symptoms/episode began/occurred yesterday. Severity of symptoms: At its worst the pain was moderate, "similar to past headaches". The symptoms are alleviated by nothing. the symptoms are aggravated by nothing. The patient has experienced similar episodes in the past. Patient reports headache that began last night, similar to previous headaches that he is presented to emergency room before. Reports history of migraines. Came in today because feeling weak all over. Patient feels that he is dehydrated and last time he felt like this he was told he was dehydrated and improved with fluids. 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 No fever or chills. No neck stiffness. Has had previous surgery to the neck and reports neck pain that radiates down the left arm with tingling and the pain radiates from the neck to the posterior scalp as well. No focal weakness. No vision changes. No chest pain.. Historical: - Allergies: 11:56 Benadryl; ph - PMHx: 11:56 High Cholesterol; Hypertension; Migraine; ph - PSHx: 11:56 neck; right knee; ph - Immunization history:: Adult Immunizations unknown. - Infectious Disease History:: Denies. - Social history:: Smoking status: Patient reports the use of cigarette tobacco products, smokes two packs cigarettes per day. - Family history:: not pertinent. - Hospitalizations: : No recent hospitalization is reported. ROS: 12:24 Constitutional: Negative for fever, chills, and weight loss, Neck: Positive for neck rn pain Cardiovascular: Negative for chest pain, palpitations, and edema, Respiratory: Negative for shortness of breath, cough, wheezing, and pleuritic chest pain, Abdomen/GI: Negative for abdominal pain, nausea, vomiting, diarrhea, and constipation, Back: Negative for injury and pain, MS/Extremity: Negative for injury and deformity, Skin: Negative for injury, rash, and discoloration, Neuro: Positive for headache and tingling of the left arm last night, no tingling today. No weakness. Exam: 12:24 Constitutional: This is a well developed, well nourished patient who is awake, alert, rn and in no acute distress. Patient ambulatory to triage with big gulp fountain drink Head/Face: Normocephalic, atraumatic. Cardiovascular: Regular rate and rhythm. No pulse deficits. Respiratory: No increased work of breathing, no retractions or nasal flaring. Skin: Warm, dry, no lesions Neuro: Awake and alert, GCS 15, oriented to person, place, time, and situation. Cranial nerves II-XII grossly intact. Motor strength 5/5 in all extremities. Sensory grossly intact. Cerebellar exam normal. Normal gait. Vital Signs: 11:54 BP 125 / 79; Pulse 84; Resp 18; Pulse Ox 100% on R/A; Weight 77.11 kg; Height 5 ft. 7 ph in. ; 12:23 BP 117 / 69; Pulse 84; Resp 18; Pulse Ox 100% ; me1 13:15 Pain 2/10; me1 13:15 Pain 2/10; me1 13:45 BP 106 / 60; Pulse 68; Resp 17; Temp 98.4; Pulse Ox 96% ; me1 11:54 Body Mass Index 26.63 (77.11 kg, 170.18 cm) ph 13:15 Pain Scale: Adult me1 13:15 Pain Scale: Adult me1 [place] Coma Score: 13:42 Eye Response: spontaneous(4). Motor Response: obeys commands(6). Verbal Response: rn oriented(5). Total: 15. MDM: 11:25 Medical Screening Exam initiated rn 13:42 Differential diagnosis: migraine, neoplasm, tension headache, vasomotor headache. Data rn reviewed: vital signs, nurses notes, radiologic studies, CT scan, and as a result, I will discharge patient. Counseling: I had a detailed discussion with the patient and/or guardian regarding the historical points, exam findings, and any diagnostic results supporting the discharge/admit diagnosis, radiology results, the need for outpatient follow up, to return to the emergency department if symptoms worsen or persist or if there are any questions or concerns that arise at home. Response to treatment: the patient's symptoms have markedly improved after treatment, and as a result, I will discharge patient. Special discussion: I discussed with the patient/guardian in detail that at this point there is no indication for admission to the hospital. It is understood, however, that if the symptoms persist or worsen the patient needs to return immediately for re-evaluation. Based on the history and exam findings, there is no indication for further emergent testing or inpatient evaluation. I discussed with the patient/guardian the need to see the back specialist for further evaluation of the symptoms. ED course: No acute findings and workup today. CT head and C-spine negative for acute findings. Most likely chronic pain and migraines secondary to previous neck injury and plate, sounds like radiculopathy that originates in the neck. Recommend following up with his surgeon who performed his cervical surgery. I have personally reviewed all of the results, including but not limited to imaging deemed necessary to safely discharge this patient at this time. All results given to and printed out for patient. I personally went over all the results with the patient and answered all questions. Patient will follow-up with PCP and or specialist as discussed. Return precautions given and understood.. 07/11 12:00 Order name: CT Head C Spine; Complete Time: 13:20 rn 07/11 12:00 Order name: IV Start; Complete Time: 12:06 rn Administered Medications: 12:24 Drug: NS 0.9% IV 1000 ml IV at 1000 ml once; to be given as a bolus over 60 minutes me1 Route: IV; Rate: 1000 ml; Site: right antecubital; 13:15 Follow up: Response: No adverse reaction; IV Status: Completed infusion; IV Intake: me1 1000ml 12:24 Drug: metoCLOPramide IVP 10 mg IVP once; over 1 to 2 minutes Route: IVP; Site: right me1 antecubital; 13:15 Follow up: Pain 2/10 Adult; Response: No adverse reaction; Pain is decreased me1 12:24 Drug: morphine IVP or IV 4 mg IVP once over 4 mins Route: IVP; Infused Over: 4 mins; me1 Site: right antecubital; 13:15 Follow up: Pain 2/10 Adult; Response: No adverse reaction; Pain is decreased me1 12:25 Drug: Ondansetron IVP 4 mg IVP once; over 2 minutes Route: IVP; Site: right antecubital;me1 14:11 Follow up: Response: No adverse reaction; Nausea is decreased me1 Disposition Summary: 07/11/24 13:43 Discharge Ordered Notes: Location: Home rn Problem: an ongoing problem rn Symptoms: have improved rn Condition: Stable rn Diagnosis - Headache rn - Radiculopathy, cervical region rn Followup: rn - With: Private Physician - When: As needed - Reason: Recheck today's complaints, Re-evaluation by your physician Discharge Instructions: - Discharge Summary Sheet rn - Cervical Radiculopathy rn - Migraine Headache rn Forms: - Medication Reconciliation Form rn - Antibiotic journalism internship - Prescription Opioid Use rn - Patient Portal Instructions rn - Leadership Thank You Letter rn - Work release form me1 Prescriptions: - Lisinopril 10 mg Oral tablet - take 1 tablet ORAL route once daily; 60 tablet; Refills: 0, Product Selection rn Permitted Signatures: Dispatcher [employer] Miquel Munson MD MD rn Hall, Patricia, RN RN Yulissa Murrieta RN RN ms1
--- NOTE | 2024-07-11 13:44 | ER ---
Nurse's Notes [facility] Name: Kali Lopez Age: 38 yrs Sex: Male : 1985 Arrival Date: 07/11/2024 Time: 11:20 Bed 24 Private MD: Diagnosis: Headache;Radiculopathy, cervical region Presentation: 07/11 11:54 Chief complaint: Patient states: Headache, neck pain, general weakness, started ph yesterday, no N/V/D or fever. Coronavirus screen: Vaccine status: Patient reports being unvaccinated. Ebola Screen: No symptoms or risks identified at this time. Initial Sepsis Screen: Does the patient meet any 2 criteria? No. Patient's initial sepsis screen is negative. Does the patient have a suspected source of infection? No. Patient's initial sepsis screen is negative. Risk Assessment: Do you want to hurt yourself or someone else? Patient reports no desire to harm self or others. Onset of symptoms was July 11, 2024. 11:54 Method Of Arrival: Ambulatory ph 11:54 Acuity: SALO 3 ph Historical: - Allergies: 11:56 Benadryl; ph - PMHx: 11:56 High Cholesterol; Hypertension; Migraine; ph - PSHx: 11:56 neck; right knee; ph - Immunization history:: Adult Immunizations unknown. - Infectious Disease History:: Denies. - Social history:: Smoking status: Patient reports the use of cigarette tobacco products, smokes two packs cigarettes per day. - Family history:: not pertinent. - Hospitalizations: : No recent hospitalization is reported. Screenin:13 [facility] ED Fall Risk Assessment (Adult) History of falling in the last 3 months, me1 including since admission No falls in past 3 months (0 pts) Confusion or Disorientation No (0 pts) Intoxicated or Sedated No (0 pts) Impaired Gait No (0 pts) Mobility Assist Device Used No (0 pt) Altered Elimination No (0 pt) Score/Fall Risk Level 0 - 2 = Low Risk Maintained a safe environment, Provided non-skid footwear, Hourly rounding (assess needs \T\ fall precautionary measures) done. Abuse screen: Denies threats or abuse. Nutritional screening: No deficits noted. Tuberculosis screening: No symptoms or risk factors identified. Assessment: 13:12 General: Appears in no apparent distress. Behavior is calm, cooperative, appropriate me1 for age, Reports Headache, neck pain, general weakness, started yesterday, no N/V/D or fever. Pain: Complains of pain in back of neck and forehead and top of head Pain does not radiate. Pain currently is 8 out of 10 on a pain scale. Quality of pain is described as aching, Pain began 1 day ago. Is continuous. 13:13 Neuro: Level of Consciousness is awake, alert, obeys commands, Oriented to person, me1 place, time, situation, Appropriate for age. Cardiovascular: Patient's skin is warm and dry. Respiratory: Airway is patent Respiratory effort is even, unlabored, Respiratory pattern is regular, symmetrical. GI: No signs and/or symptoms were reported involving the gastrointestinal system. GI: Patient currently denies diarrhea, nausea, vomiting. : No signs and/or symptoms were reported regarding the genitourinary system. EENT: No signs and/or symptoms were reported regarding the EENT system. Derm: Skin is intact, is healthy with good turgor, Skin is pink, warm \T\ dry. Musculoskeletal: No signs and/or symptoms reported regarding the musculoskeletal system. Vital Signs: 11:54 BP 125 / 79; Pulse 84; Resp 18; Pulse Ox 100% on R/A; Weight 77.11 kg; Height 5 ft. 7 ph in. ; 12:23 BP 117 / 69; Pulse 84; Resp 18; Pulse Ox 100% ; me1 13:15 Pain 2/10; me1 13:15 Pain 2/10; me1 13:45 BP 106 / 60; Pulse 68; Resp 17; Temp 98.4; Pulse Ox 96% ; me1 11:54 Body Mass Index 26.63 (77.11 kg, 170.18 cm) ph 13:15 Pain Scale: Adult me1 13:15 Pain Scale: Adult me1 [place]aph[place] Coma Score: 13:42 Eye Response: spontaneous(4). Motor Response: obeys commands(6). Verbal Response: rn oriented(5). Total: 15. ED Course: 11:22 Patient arrived in ED. mr 11:25 Miquel Garcia MD is Attending Physician. rn 11:56 Triage completed. ph 11:56 Arm band placed on Patient placed in an exam room, on a stretcher. ph 12:07 Inserted saline lock: 20 gauge in right antecubital area, using aseptic technique. ll1 Blood collected. Flushed with 10 mL NS. 12:13 Yulissa Murrieta, RN is Primary Nurse. me1 12:34 CT Head C Spine In Process Unspecified. EDMS 13:13 Patient has correct armband on for positive identification. Bed in low position. Call me1 light in reach. Side rails up X 1. Provided Education on: POC. Verbalized understanding.. Client placed on continuous cardiac and pulse oximetry monitoring. NIBP monitoring applied. Pulse ox on. NIBP on. 13:13 No provider procedures requiring assistance completed. me1 14:04 IV discontinued, intact, bleeding controlled, No redness/swelling at site. Pressure me1 dressing applied. Administered Medications: 12:24 Drug: NS 0.9% IV 1000 ml IV at 1000 ml once; to be given as a bolus over 60 minutes me1 Route: IV; Rate: 1000 ml; Site: right antecubital; 13:15 Follow up: Response: No adverse reaction; IV Status: Completed infusion; IV Intake: me1 1000ml 12:24 Drug: metoCLOPramide IVP 10 mg IVP once; over 1 to 2 minutes Route: IVP; Site: right me1 antecubital; 13:15 Follow up: Pain 2/10 Adult; Response: No adverse reaction; Pain is decreased me1 12:24 Drug: morphine IVP or IV 4 mg IVP once over 4 mins Route: IVP; Infused Over: 4 mins; me1 Site: right antecubital; 13:15 Follow up: Pain 2/10 Adult; Response: No adverse reaction; Pain is decreased me1 12:25 Drug: Ondansetron IVP 4 mg IVP once; over 2 minutes Route: IVP; Site: right antecubital;me1 14:11 Follow up: Response: No adverse reaction; Nausea is decreased me1 Medication: 13:13 VIS not applicable for this client. me1 Intake: 13:15 IV: 1000ml; Total: 1000ml. me1 Outcome: 13:43 Discharge ordered by . ellen 14:04 Discharged to home ambulatory, me1 14:04 Condition: stable 14:04 Discharge instructions given to patient, Instructed on discharge instructions, follow up and referral plans. medication usage, Demonstrated understanding of instructions, follow-up care, medications, Prescriptions given X 1, 14:10 Patient left the ED. me1 Signatures: Dispatcher [employer] EDMS Rupa Amaya, Holden Holden mr Miquel Garcia MD MD rn Hall, Patricia, RN RN ph Trav, ELLEN Marrero RN 1 Yulissa Murrieta RN RN me1 Corrections: (The following items were deleted from the chart) 13:12 11:54 Chief complaint: Patient states: Headache, neck pain, general weakness, started me1 yesterday, no N/V/D or fever ph 13:14 13:12 Pain: Complains of pain in back of neck and forehead and top of head Pain does me1 not radiate. Pain me1
[2024-07-11 14:27] VITALS: BP 106/60; TEMP 98.4; O2SAT 96
== END 2024-07-11 14:10 | disposition home or self-care (01) ==
LOC: ER 11:20
DX: M54.12 Radiculopathy, cervical region (principal); F17.210 Nicotine dependence, cigarettes, uncomplicated
CPT/HCPCS: 70450; 72125; J2765; J2405; J7030; 96361; 96374; 96375; 99284

== ENCOUNTER 2024-07-16 03:50 | Emergency (ER) | payer OTHER ==
[2024-07-16] MEDS ORDERED: AMOX/K CLAV 875 MG TAB ONE (04:26)
[2024-07-16] MEDS ORDERED: OFLOXACIN OPH 0.3%-5 ML BTL ONE (04:31)
--- NOTE | 2024-07-16 05:27 | EDPHYS ---
Physician Documentation [facility] Name: Kali Lopez Age: 38 yrs Sex: Male : 1985 Arrival Date: 07/16/2024 Time: 03:50 Bed 7 Private MD: ED Physician Jacob Chang HPI: 07/16 04:32 This 38 yrs old Male presents to ER via Ambulatory with complaints of BLEEDING ec2 FROM EAR. 04:32 Patient arrives today for evaluation of bleeding from the left ear. Patient reports ec2 that he noted some dripping from his left ear and heart started have some discomfort and noticed that he was bleeding. Reports no fevers or chills, no nausea or vomiting.. Historical: - Allergies: 04:00 Benadryl; dd2 - PMHx: 04:00 High Cholesterol; Hypertension; Migraine; dd2 - PSHx: 04:00 neck; right knee; dd2 - Immunization history:: Adult Immunizations not up to date, Client reports receiving the 1st dose of the Covid vaccine, Last tetanus immunization: unknown, Flu vaccine is not up to date. Patient has never been vaccinated. - Infectious Disease History:: Denies. - Social history:: Smoking status: Patient reports the use of cigarette tobacco products, smokes one pack cigarettes per day. ROS: 04:33 Constitutional: as per hpi ec2 Exam: 04:33 Constitutional: GEN: NAD Head: atraumatic Eyes: EOMI Ears: Dried blood present in the ec2 left external canal. Left tympanic membrane with bulging membrane with fluid present. CV: regular rate LUNGS: no respiratory distress ABD: non-distended SKIN: no evidence of rashes MSK: no evidence of trauma Vital Signs: 03:58 BP 166 / 102; Pulse 98; Resp 16; Temp 97.9; Pulse Ox 100% on R/A; Weight 77.11 kg; Pain dd2 3/10; 04:59 BP 152 / 98; Pulse 88; Resp 16; Pulse Ox 100% on R/A; dd2 05:31 BP 146 / 92; Pulse 84; Resp 16; Pulse Ox 99% ; dd2 03:58 Pain Scale: Adult dd2 Daphne Coma Score: 04:03 Eye Response: spontaneous(4). Motor Response: obeys commands(6). Verbal Response: dd2 oriented(5). Total: 15. MDM: 04:09 Medical Screening Exam initiated ec2 04:33 Data reviewed: vital signs, nurses notes. ED course: Patient arrives today for ec2 evaluation of left ear bleeding. Examination yields HEENT findings as above. Will treat the patient for otitis externa. Instructed the patient on not submerging his head in water. Will return precautions given. Patient otherwise well-appearing.. Administered Medications: 04:37 Drug: Amoxicillin-Clavulanate PO 875 mg PO once Route: PO; dd2 05:07 Follow up: Response: No adverse reaction dd2 04:37 Drug: Ofloxacin Ophthalmic Drops 0.3 % 1 drops Ophthalmic once {Note: ADMINISTERED INTO dd2 LT EAR PER DR. CHANG.} Route: Ophthalmic; Site: left eye; 05:07 Follow up: Response: No adverse reaction dd2 Disposition Summary: 07/16/24 05:27 Discharge Ordered Notes: Location: Home ec2 Condition: Stable ec2 Diagnosis - Acute suppurative otitis media ec2 Followup: ec2 - With: Private Physician - When: - Reason: Re-evaluation by your physician Discharge Instructions: - Discharge Summary Sheet ec2 - Otitis Media, Adult, [id number] ec2 Forms: - Medication Reconciliation Form ec2 - Antibiotic Education ec2 - Prescription Opioid Use ec2 - Patient Portal Instructions ec2 - Leadership Thank You Letter ec2 - School release form dd2 - Work release form dd2 - Family Work Release dd2 Prescriptions: - ofloxacin 0.3 % Otic drops - instill 10 drop OTIC route daily for 7 days; 5 milliliter; Refills: 0, Product ec2 Selection Permitted - Augmentin 875-125 mg Oral Tablet - take 1 tablet ORAL route every 12 hours for 10 days; 20 tablet; Refills: 0, ec2 Product Selection Permitted Signatures: Jacob Chang MD MD ec2 RIC MCRAE RN RN dd2
--- NOTE | 2024-07-16 05:27 | ER ---
Nurse's Notes [facility] Name: Kali Lopez Age: 38 yrs Sex: Male : 1985 Arrival Date: 07/16/2024 Time: 03:50 Bed 7 Private MD: Diagnosis: Acute suppurative otitis media Presentation: 07/16 03:58 Chief complaint: Patient states: WAS DRIVING HOME APPROX 20 MINS AGO WHEN HE FELT dd2 LIQUID COMING FROM HIS LEFT EAR AND SAW BLOOD ON HIS SHIRT. Coronavirus screen: At this time, the client does not indicate any symptoms associated with coronavirus-19. Ebola Screen: No symptoms or risks identified at this time. Initial Sepsis Screen: Does the patient meet any 2 criteria? No. Patient's initial sepsis screen is negative. Does the patient have a suspected source of infection? No. Patient's initial sepsis screen is negative. Risk Assessment: Do you want to hurt yourself or someone else? Patient reports no desire to harm self or others. Onset of symptoms was July 16, 2024. 03:58 Method Of Arrival: Ambulatory dd2 03:58 Acuity: SALO 3 dd2 Triage Assessment: 04:00 General: Appears in no apparent distress. uncomfortable, Behavior is calm, cooperative, dd2 appropriate for age. Pain: Complains of pain in left ear Pain does not radiate. Pain currently is 3 out of 10 on a pain scale. EENT: Ear canal w/ bleeding noted from left ear Reports BLEEDING FROM LT EAR. Neuro: No deficits noted. Level of Consciousness is awake, alert, obeys commands, Oriented to person, place, time, situation, Appropriate for age. Cardiovascular: No deficits noted. Patient's skin is warm and dry. Respiratory: No deficits noted. Airway is patent Respiratory effort is even, unlabored, Respiratory pattern is regular, symmetrical. GI: No deficits noted. No signs and/or symptoms were reported involving the gastrointestinal system. : No deficits noted. No signs and/or symptoms were reported regarding the genitourinary system. Derm: No deficits noted. No signs and/or symptoms reported regarding the dermatologic system. Musculoskeletal: No deficits noted. No signs and/or symptoms reported regarding the musculoskeletal system. Circulation, motion, and sensation intact. Range of motion: intact in all extremities. Historical: - Allergies: 04:00 Benadryl; dd2 - PMHx: 04:00 High Cholesterol; Hypertension; Migraine; dd2 - PSHx: 04:00 neck; right knee; dd2 - Immunization history:: Adult Immunizations not up to date, Client reports receiving the 1st dose of the Covid vaccine, Last tetanus immunization: unknown, Flu vaccine is not up to date. Patient has never been vaccinated. - Infectious Disease History:: Denies. - Social history:: Smoking status: Patient reports the use of cigarette tobacco products, smokes one pack cigarettes per day. Screenin:03 [facility] ED Fall Risk Assessment (Adult) History of falling in the last 3 months, dd2 including since admission No falls in past 3 months (0 pts) Confusion or Disorientation No (0 pts) Intoxicated or Sedated No (0 pts) Impaired Gait No (0 pts) Mobility Assist Device Used No (0 pt) Altered Elimination No (0 pt) Score/Fall Risk Level 0 - 2 = Low Risk Oriented to surroundings, Maintained a safe environment, Educated pt \T\ family on fall prevention, incl call for assistance when getting out of bed, Assessed \T\ reinforced patient's understanding of fall precautions, Hourly rounding (assess needs \T\ fall precautionary measures) done. Abuse screen: Denies threats or abuse. Denies injuries from another. Nutritional screening: No deficits noted. Tuberculosis screening: No symptoms or risk factors identified. Assessment: 04:03 Reassessment: SEE TRIAGE ASSESSMENT FOR FULL ASSESSMENT. dd2 Vital Signs: 03:58 BP 166 / 102; Pulse 98; Resp 16; Temp 97.9; Pulse Ox 100% on R/A; Weight 77.11 kg; Pain dd2 3/10; 04:59 BP 152 / 98; Pulse 88; Resp 16; Pulse Ox 100% on R/A; dd2 05:31 BP 146 / 92; Pulse 84; Resp 16; Pulse Ox 99% ; dd2 03:58 Pain Scale: Adult dd2 Daphne Coma Score: 04:03 Eye Response: spontaneous(4). Motor Response: obeys commands(6). Verbal Response: dd2 oriented(5). Total: 15. ED Course: 03:51 Patient arrived in ED. ec2 03:51 Jacob Chang MD is Attending Physician. ec2 03:57 RIC MCRAE RN is Primary Nurse. dd2 04:00 Triage completed. dd2 04:00 Arm band placed on right wrist. Patient placed in an exam room, on a stretcher, on dd2 pulse oximetry. 04:03 Bed in low position. Call light in reach. Side rails up X 1. Client placed on dd2 continuous cardiac and pulse oximetry monitoring. NIBP monitoring applied. Door closed. Noise minimized. Pillow given. Verbal reassurance given. 04:03 No provider procedures requiring assistance completed. Patient maintains SpO2 dd2 saturation greater than 95% on room air. 05:31 Provided Education on: D/C EDUCATION. dd2 05:31 Patient did not have IV access during this emergency room visit. intact. dd2 05:55 Primary Nurse role handed off by RIC MCRAE, RN rv1 Administered Medications: 04:37 Drug: Amoxicillin-Clavulanate PO 875 mg PO once Route: PO; dd2 05:07 Follow up: Response: No adverse reaction dd2 04:37 Drug: Ofloxacin Ophthalmic Drops 0.3 % 1 drops Ophthalmic once {Note: ADMINISTERED INTO dd2 LT EAR PER DR. CHANG.} Route: Ophthalmic; Site: left eye; 05:07 Follow up: Response: No adverse reaction dd2 Medication: 04:03 VIS not applicable for this client. dd2 Outcome: 05:27 Discharge ordered by . ec2 05:31 Discharged to home ambulatory, dd2 05:31 Condition: stable 05:31 Discharge instructions given to patient, Instructed on discharge instructions, follow up and referral plans. medication usage, Demonstrated understanding of instructions, follow-up care, medications, Prescriptions given X 2, 05:44 Patient left the ED. dd2 05:56 Patient left the ED. rv1 Signatures: Comfort Anaya rv1 Jacob Chang MD MD ec2 RIC MCRAE, RN RN dd2 Corrections: (The following items were deleted from the chart) 05:43 05:42 BP 146 / 92; Pulse 84bpm; Resp 16bpm; Pulse Ox 99%; dd2 dd2
[2024-07-16 05:53] VITALS: TEMP 97.9
[2024-07-16 05:55] VITALS: BP 146/92; O2SAT 99
== END 2024-07-16 05:56 | disposition home or self-care (01) ==
LOC: ER 03:50
DX: H65.02 Acute serous otitis media, left ear (principal)
CPT/HCPCS: 99284

== ENCOUNTER 2024-09-24 04:10 | Emergency (ER) | payer OTHER ==
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
[2024-09-24 04:57] LABS: Absolute Basophils 0.1 K/uL (0-0.5); Absolute Eosinophils 0.2 K/uL (0-0.5); Absolute Lymphocytes (CBC) 2.7 K/uL (0.7-4.9); Absolute Monocytes 0.9 K/uL (0.1-1.3); Absolute Neutrophil 8.3 K/uL (1.8-8.0); Basophils % 1.1 % (0-1.3); Eosinophils % 1.5 % (0-4.4); Hematocrit 41.2 % (39.6-49.0); Hemoglobin 14.5 g/dL (13.6-17.9); Lymphocytes % 22.1 % (15.3-44.8); MCH 29.6 pg (27.0-35.0); MCHC 35.3 g/dL (32.0-36.0); MCV 83.9 fL (80-100); MPV 7.6 fL (7.6-11.3); Monocytes % 7.6 % (3.3-12.3); Neutrophils % 67.7 % (41.7-73.7); Platelets 244 thou/uL (152-406); RBC Red Blood Cell Count 4.91 M/uL (4.33-5.43); Red Cell Distribution Width 13.8 % (12.1-15.2)
[2024-09-24 05:14] LABS: Anion Gap 9.4 mEq/L (5.0-15.0); Potassium 3.4 mEq/L (3.5-5.1)
[2024-09-24] MEDS ORDERED: methocarbamoL 750 MG TAB ONE (06:11)
[2024-09-24] MEDS ORDERED: DIAZEPAM 5 MG TABLET ONE (06:11)
[2024-09-24] MEDS ORDERED: DICYCLOMINE HCL 10 MG CAP ONE (06:11)
--- NOTE | 2024-09-24 07:37 | ER ---
Nurse's Notes [facility] Name: Kali Lopez Age: 38 yrs Sex: Male : 1985 Arrival Date: 09/24/2024 Time: 04:10 Bed 19 Private MD: Diagnosis: Cramp and spasm;Acute right thigh muscle cramps Presentation: 09/24 04:34 Chief complaint: Patient states: SUDDEN ONSET OF PAIN ON THE BACK OF THIGH, IT FEELS ha1 LIKE A CRAMP. 04:34 Coronavirus screen: Client denies travel out of the [place] in the last 14 days. Ebola ha1 Screen: No symptoms or risks identified at this time. Initial Sepsis Screen: Does the patient meet any 2 criteria? No. Patient's initial sepsis screen is negative. Does the patient have a suspected source of infection? No. Patient's initial sepsis screen is negative. Risk Assessment: Do you want to hurt yourself or someone else? Patient reports no desire to harm self or others. Onset of symptoms was September 24, 2024. 04:34 Method Of Arrival: Ambulatory ha1 04:34 Acuity: SALO 3 ha1 Triage Assessment: 04:34 General: Appears uncomfortable, Behavior is cooperative. Pain: Complains of pain in ha1 medial aspect of right thigh Quality of pain is described as crampy. Neuro: Level of Consciousness is awake, alert, obeys commands, Oriented to person, place, time, situation. Cardiovascular: Capillary refill < 3 seconds Patient's skin is warm and dry. Respiratory: Airway is patent Respiratory effort is even, unlabored, Respiratory pattern is regular, symmetrical. GI: No signs and/or symptoms were reported involving the gastrointestinal system. Abdomen is round non-distended. : No signs and/or symptoms were reported regarding the genitourinary system. Musculoskeletal: Circulation, motion, and sensation intact. Range of motion: intact in all extremities, Reports pain in lateral aspect of right thigh. Historical: - Allergies: 04:34 Benadryl; ha1 - PMHx: 04:34 High Cholesterol; Hypertension; Migraine; ha1 - PSHx: 04:34 neck; right knee; ha1 - Immunization history:: Adult Immunizations up to date. - Infectious Disease History:: Denies. - Social history:: Smoking status: . - Family history:: not pertinent. Screenin:[facility] ED Fall Risk Assessment (Adult) History of falling in the last 3 months, ha1 including since admission No falls in past 3 months (0 pts) Confusion or Disorientation No (0 pts) Intoxicated or Sedated No (0 pts) Impaired Gait No (0 pts) Mobility Assist Device Used No (0 pt) Altered Elimination No (0 pt) Score/Fall Risk Level 0 - 2 = Low Risk Oriented to surroundings, Maintained a safe environment, Educated pt \T\ family on fall prevention, incl call for assistance when getting out of bed, Hourly rounding (assess needs \T\ fall precautionary measures) done. Abuse screen: Denies threats or abuse. Denies injuries from another. Nutritional screening: No deficits noted. Tuberculosis screening: No symptoms or risk factors identified. Assessment: 04:45 General: Appears in no apparent distress. Behavior is calm, cooperative, appropriate rg5 for age. Pain: Complains of pain in right leg Quality of pain is described as crampy. Neuro: Level of Consciousness is awake, alert, obeys commands, Oriented to person, place, time, situation. Cardiovascular: Denies chest pain, Patient's skin is warm and dry. Respiratory: Airway is patent Trachea midline Respiratory effort is even, unlabored, Breath sounds are clear. GI: Abdomen is round Abd is soft and non tender. : No signs and/or symptoms were reported regarding the genitourinary system. EENT: No signs and/or symptoms were reported regarding the EENT system. Derm: Skin is intact, Skin is dry, Skin is normal. Musculoskeletal: Circulation, motion, and sensation intact. Range of motion: intact in all extremities. 07:15 Reassessment: pt care/report received from ELLEN Cortez. pt is currently sleeping, easily kn awakens, AAOx4, pt states 8/10 pain then falls back to sleep. in no acute distress, vss, will continue to monitor pt. Vital Signs: 04:34 BP 144 / 86; Pulse 90; Resp 17 S; Temp 98; Pulse Ox 99% on R/A; Weight 72.57 kg; Height ha1 5 ft. 7 in. ; Pain 7/10; 05:00 BP 142 / 92; Pulse 85; Resp 17; Pulse Ox 98% on R/A; rg5 06:00 BP 136 / 81; Pulse 68; Resp 18; Pulse Ox 96% on R/A; rg5 07:19 BP 120 / 71; Pulse 63; Resp 18; Pulse Ox 97% ; Pain 8/10; kn 04:34 Body Mass Index 25.06 (72.57 kg, 170.18 cm) ha1 04:34 Pain Scale: Adult ha1 07:19 Pain Scale: Adult kn Daphne Coma Score: 09/25 04:09 Eye Response: spontaneous(4). Motor Response: obeys commands(6). Verbal Response: sp4 oriented(5). Total: 15. ED Course: 09/24 04:12 Patient arrived in ED. [email or web address] 04:12 Scott Webb MD is Attending Physician. sp4 04:34 Patient has correct armband on for positive identification. Bed in low position. Call ha1 light in reach. Side rails up X 1. 04:34 Provided Education on: PLAN OF CARE . ha1 04:36 Diego Amaral, RN is Primary Nurse. rg5 04:45 Inserted saline lock: 18 gauge in right forearm, using aseptic technique. Blood rg5 collected. Flushed with 10 mL NS. 04:45 No provider procedures requiring assistance completed. rg5 04:51 Triage completed. ha1 04:54 Basic Metabolic Panel Sent. ha1 04:54 CBC with Diff Sent. ha1 04:55 D-Dimer Sent. ha1 07:00 Arm band placed on. kn 07:59 IV discontinued, intact, bleeding controlled, No redness/swelling at site. Pressure kn dressing applied. Administered Medications: 04:59 Drug: NS 0.9% IV 1000 ml IV at 1000 ml once; to be given as a bolus over 60 minutes rg5 Route: IV; Rate: 1000 ml; Site: right forearm; 07:00 Follow up: Response: No adverse reaction; IV Status: Completed infusion; IV Intake: kn 1000ml 06:10 Drug: Diazepam PO 5 mg PO once Route: PO; rg5 07:00 Follow up: Response: No adverse reaction kn 06:10 Drug: Methocarbamol PO 1500 mg PO once Route: PO; rg5 07:00 Follow up: Response: No adverse reaction kn 06:10 Drug: Dicyclomine PO 20 mg PO once Route: PO; rg5 07:00 Follow up: Response: No adverse reaction kn Medication: 04:54 VIS not applicable for this client. ha1 Intake: 07:00 IV: 1000ml; Total: 1000ml. tesfaye Outcome: 07:36 Discharge ordered by . cuauhtemoc 07:58 Discharged to home ambulatory, 07:58 Condition: stable 07:58 Discharge instructions given to patient, Instructed on discharge instructions, follow up and referral plans. medication usage, Demonstrated understanding of instructions, follow-up care, medications, Prescriptions given X 2, 08:00 Patient left the ED. tesfaye Signatures: Gricelda [email or web address] Ying Lehman, RN RN ha1 Scott Webb MD MD sp4 EUGENIA PLASCENCIA RN RN kn Diego Amaral RN RN rg5 Corrections: (The following items were deleted from the chart) 07:22 07:15 Reassessment: pt care/report received from ELLEN Cortez. pt is currently sleeping, kn in no acute distress, will continue to monitor pt. tesfaye
--- NOTE | 2024-09-24 07:37 | EDPHYS ---
Physician Documentation [facility] Name: Kali Lopez Age: 38 yrs Sex: Male : 1985 Arrival Date: 09/24/2024 Time: 04:10 Bed 19 Private MD: ED Physician Scott Webb HPI: 09/24 04:13 This 38 yrs old Male presents to ER via Unassigned with complaints of CRAMP IN sp4 RIGHT LEG. 09/25 04:09 38-year-old male presents with moderate to severe cramp in the right thigh. Right inner sp4 thigh pain.. Historical: - Allergies: 09/24 04:34 Benadryl; ha1 - PMHx: 04:34 High Cholesterol; Hypertension; Migraine; ha1 - PSHx: 04:34 neck; right knee; ha1 - Immunization history:: Adult Immunizations up to date. - Infectious Disease History:: Denies. - Social history:: Smoking status: . - Family history:: not pertinent. ROS: 09/25 04:09 Constitutional: Negative for fever, chills, and weight loss, positive for right thigh sp4 cramps All other systems are negative, Exam: 04:09 Constitutional: This is a well developed, well nourished patient who is awake, alert, sp4 and in no acute distress. Head/Face: Normocephalic, atraumatic. Eyes: Pupils equal round and reactive to light, extra-ocular motions intact. Lids and lashes normal. Conjunctiva and sclera are not injected. Cornea within normal limits. Periorbital areas with no swelling, redness, or edema. ENT: Nares patent. No nasal discharge, no septal abnormalities noted. Tympanic membranes are normal and external auditory canals are clear. Oropharynx with no redness, swelling, or masses, exudates, or evidence of obstruction, uvula midline. Mucous membranes moist. Neck: Trachea midline, no thyromegaly or masses palpated, and no cervical lymphadenopathy. Supple, full range of motion without nuchal rigidity, or vertebral point tenderness. Chest/axilla: Normal chest wall appearance and motion. Nontender with no deformity. No lesions are appreciated. Cardiovascular: Regular rate and rhythm with a normal S1 and S2. No gallops, murmurs, or rubs. Normal PMI, no JVD. No pulse deficits. Respiratory: Lungs have equal breath sounds bilaterally, clear to auscultation and percussion. No rales, rhonchi or wheezes noted. No increased work of breathing, no retractions or nasal flaring. Abdomen/GI: Soft, with normal bowel sounds. No distension or tympany. No guarding or rebound. No evidence of tenderness throughout. Back: No spinal tenderness. No costovertebral tenderness. Skin: Warm, dry with normal turgor. Normal color with no rashes, no lesions, and no evidence of cellulitis. MS/ Extremity: Pulses equal, no cyanosis. Neurovascular intact. Full, normal range of motion. Neuro: Awake and alert, GCS 15, oriented to person, place, time, and situation. Cranial nerves II-XII grossly intact. Motor strength 5/5 in all extremities. Sensory grossly intact. Psych: Awake, alert, with orientation to person, place and time. Behavior, mood, and affect are within normal limits Vital Signs: 09/24 04:34 BP 144 / 86; Pulse 90; Resp 17 S; Temp 98; Pulse Ox 99% on R/A; Weight 72.57 kg; Height ha1 5 ft. 7 in. ; Pain 7/10; 05:00 BP 142 / 92; Pulse 85; Resp 17; Pulse Ox 98% on R/A; rg5 06:00 BP 136 / 81; Pulse 68; Resp 18; Pulse Ox 96% on R/A; rg5 07:19 BP 120 / 71; Pulse 63; Resp 18; Pulse Ox 97% ; Pain 8/10; kn 04:34 Body Mass Index 25.06 (72.57 kg, 170.18 cm) ha1 04:34 Pain Scale: Adult ha1 07:19 Pain Scale: Adult kn Daphne Coma Score: 09/25 04:09 Eye Response: spontaneous(4). Motor Response: obeys commands(6). Verbal Response: sp4 oriented(5). Total: 15. MDM: 09/24 05:32 Medical Screening Exam initiated sp4 09/25 04:09 Differential Diagnosis altered mental status, sepsis, flu, Painful cramps. Data sp4 reviewed: vital signs, nurses notes, old medical records. Consideration of Admission/Observation Escalation of care including admission/observation considered. ED course: Cramps have improved. Patient stable for discharge home.. 09/24 04:40 Order name: Basic Metabolic Panel; Complete Time: 06:05 ha09/24 04:40 Order name: CBC with Diff; Complete Time: 06:05 09/24 04:40 Order name: D-Dimer; Complete Time: 06:05 09/24 04:40 Order name: EKG; Complete Time: 04:40 ha1 09/24 04:40 Order name: IV Saline Lock; Complete Time: 04:49 09/24 04:40 Order name: Labs collected and sent; Complete Time: 04:49 09/24 04:40 Order name: O2 Per Protocol; Complete Time: 04:48 ha09/24 04:40 Order name: O2 Sat Monitoring; Complete Time: 04:48 ha Administered Medications: 09/24 04:59 Drug: NS 0.9% IV 1000 ml IV at 1000 ml once; to be given as a bolus over 60 minutes rg5 Route: IV; Rate: 1000 ml; Site: right forearm; 07:00 Follow up: Response: No adverse reaction; IV Status: Completed infusion; IV Intake: kn 1000ml 06:10 Drug: Diazepam PO 5 mg PO once Route: PO; rg5 07:00 Follow up: Response: No adverse reaction 06:10 Drug: Methocarbamol PO 1500 mg PO once Route: PO; rg5 07:00 Follow up: Response: No adverse reaction kn 06:10 Drug: Dicyclomine PO 20 mg PO once Route: PO; rg5 07:00 Follow up: Response: No adverse reaction kn Disposition Summary: 09/24/24 07:36 Discharge Ordered Notes: Location: Home sp4 Problem: new sp4 Symptoms: have improved sp4 Condition: Stable sp4 Diagnosis - Cramp and spasm sp4 - Acute right thigh muscle cramps sp4 Followup: sp4 - With: Private Physician - When: 7 - 10 days - Reason: Recheck today's complaints Discharge Instructions: - Discharge Summary Sheet sp4 - Leg Cramps sp4 Forms: - Patient Portal Instructions sp4 Prescriptions: - Phenobarbital 100 mg Oral tablet - take 1 tablet ORAL route every 12 hours PRN cramps; 12 tablet; Refills: 0, sp4 Product Selection Permitted - dicyclomine 20 mg Oral tablet - take 2 tablets ORAL route 4 times per day PRN cramps; 60 tablet; Refills: 0, sp4 Product Selection Permitted Signatures: Dispatcher [employer] Ying Mccurdy RN RN ha1 Scott Webb MD MD sp4 Diego Amaral RN RN rg5 EUGENIA PLASCENCIA RN kn
[2024-09-24 08:36] VITALS: TEMP 98
[2024-09-24 08:39] VITALS: BP 120/71; O2SAT 97
== END 2024-09-24 08:00 | disposition home or self-care (01) ==
LOC: ER 04:10
DX: R25.2 Cramp and spasm (principal)
CPT/HCPCS: 36415; 80048; 85025; 85379; 96360; 96361; 99284